=== PATIENT | female | born 1980 | race Caucasian/White ===

== ENCOUNTER 2016-03-15 13:14 | Emergency (ER) | payer MEDICARE ==
[2016-03-15 14:22] LABS: Hematocrit 48 % (35-47); Mean Corpuscular HGB Conc 34 g/dl (31-36); Mean Corpuscular Hemoglobin 30 pg (27-31); Mean Corpuscular Volume 90 fL (80-97); Mean Platelet Volume 9 um3 (7.4-10.4); Red Blood Count 5.27 10^6/ul (4.0-5.4); Red Cell Distribution Width 13 % (10.5-15); White Blood Count 8.5 10^3/ul (3.5-10.8)
[2016-03-15 14:25] LABS: Urine Bilirubin Negative (Negative); Urine Glucose Negative (Negative); Urine Nitrite Negative (Negative)
[2016-03-15 14:39] LABS: ALT 15 U/L (7-52); AST 14 U/L (13-39); Albumin 4.4 g/dL (3.2-5.2); Alkaline Phosphatase 70 U/L (34-104); Anion Gap 5 mmol/L (2-11); BUN/Creatinine Ratio 11.4 (8-20); Blood Urea Nitrogen 9 mg/dL (6-24); C Reactive Protein 1.08 mg/L (< 5.00); CO2 Carbon Dioxide 22 mmol/L (22-32); Calcium 9.5 mg/dL (8.6-10.3); Chloride 108 mmol/L (101-111); EGFR African American 105.3 (>60); EGFR Non-African American 81.9 (>60); Glucose 89 mg/dL (70-100); Lipase 16 U/L (11.0-82.0); Potassium 4.1 mmol/L (3.5-5.0); Sodium 135 mmol/L (133-145); Total Protein 7.4 g/dL (6.4-8.9)
[2016-03-15] MEDS ORDERED: Iohexol 300* (CONTRAST) 10 ML SDV IV ONE (15:37)
--- NOTE | 2016-03-15 17:20 | RAD ---
CLINICAL HISTORY: Left upper quadrant pain COMPARISON: October 31, 2011 TECHNIQUE: Multiple contiguous axial CT scans were obtained of the abdomen and pelvis after the administration of intravenous contrast. Coronal and sagittal multiplanar reformations are submitted for review. Oral contrast was administered. Delayed images were obtained through the abdomen FINDINGS: LUNG BASES: The lung bases are clear. LIVER: The liver is diffusely low in attenuation compared to the spleen. There are no focal hepatic parenchymal masses. BILE DUCTS: There is no intrahepatic or extrahepatic biliary dilatation. GALLBLADDER: The gallbladder is normal, without pericholecystic inflammatory change. PANCREAS: The pancreas is normal, without mass or ductal dilatation. SPLEEN: Normal in size and appearance. UPPER GI TRACT: Evaluation of the gastrointestinal tract is limited by incomplete gastric distention. The upper GI tract is unremarkable. SMALL BOWEL AND MESENTERY: The small bowel is normal in contour, course, and caliber. There is no obstruction or dilatation. COLON: The colon is normal in contour, course, caliber. There is no pericolonic inflammatory change. ADRENALS: Normal bilaterally. KIDNEYS: The kidneys are normal in shape, size, contour, and axis. There is no hydronephrosis or nephrolithiasis. BLADDER: The bladder is smooth in contour. PELVIC ORGANS: The uterus and adnexa are grossly normal for technique. AORTA: The aorta is normal. IVC: Unremarkable LYMPH NODES: There is no lymphadenopathy by size criteria. ABDOMINAL WALL: There is no evidence for abdominal wall hernia. BONES AND SOFT TISSUES: The bones and soft tissues are unremarkable. OTHER: None IMPRESSION: FATTY LIVER. NO ACUTE CT PATHOLOGY OF THE VISUALIZED ABDOMEN OR PELVIS
[2016-03-15 18:37] VITALS: BP 156/78
--- NOTE | 2016-03-15 18:58 | ED ---
Gustavo Sabillon Billy, scribed for Vasiliy De Anda MD on 03/15/16 at 1459 . Complex/Multi-Sys Presentation - HPI Summary HPI Summary: Patient is 36 y/o female who presents to [facility] with left flank pain, left lower abdominal pain, and dyspnea for 4 days. Dyspnea is unchanged with recumbent position. She describes N/V/D and abdominal pain. Three weeks ago, she saw her PCP for these symptoms, and she states that a left ovarian cyst was visualized on ultrasound. Last week, she followed up with [employer], who was unable to visualize the cyst on ultrasound. However, she states that she was given a diagnosis of endometriosis at that time. She reports pain worsened 4 days ago, and has been constant since. She also reports her abd feels distended and uncomfortable. Patient reports a history of psychiatric illnesses and is concerned that her symptoms are "all in her head." - History Of Current Complaint Chief Complaint: EDGeneral Time Seen by Provider: 03/15/16 13:47 Hx Obtained From: Patient Onset/Duration: Gradual Onset, Lasting Weeks, Still Present, Worse Since - 4 days Timing: Constant Severity Currently: Moderate Severity Initially: Moderate Location: Pain At: - LLQ, left flank Aggravating Factor(s): Nothing. Alleviating Factor(s): Nothing. Associated Signs And Symptoms: Positive: SOB, Nausea, Vomiting, Diarrhea, Abdominal Pain, Other - Flank pain - Allergies/Home Medications Allergies/Adverse Reactions: Allergies Allergy/AdvReac Type Severity Reaction Status Date / Time Hydrocodone Allergy Unknown Verified 03/22/15 00:08 Reaction Details SSRIS Allergy Unknown Uncoded 03/22/15 00:08 Reaction Details PMH/Surg Hx/FS Hx/Imm Hx Endocrine/Hematology History: Denies: Hx Diabetes, Hx Systemic Lupus Erythematosus, Hx Thyroid Disease Cardiovascular History: Denies: Hx Hypertension Respiratory History: Denies: Hx Asthma, Hx Chronic Obstructive Pulmonary Disease (COPD) GI History: Denies: Hx Ulcer Musculoskeletal History: Denies: Hx Rheumatoid Arthritis Psychiatric History: Reports: Hx Anxiety, Hx Eating Disorder, Hx Depression, Hx Panic Disorder, Hx Inpatient Treatment, Hx Community Mental Health Tx, Hx Bipolar Disorder, Hx Substance Abuse, Other Psychiatric Issues/Disorders Denies: Hx Attention Deficit Hyperactivity Disorder, Hx Post Traumatic Stress Disorder, Hx Schizophrenia, Hx Suicide Attempt, Hx of Violent Episodes Against Others - Cancer History Hx Chemotherapy: No Hx Radiation Therapy: No Hx Palliative Cancer Treatment: No - Surgical History Surgery Procedure, Year, and Place: 2000 - RIGHT Lymph nodes removed to biopsy thought she had cancer - she didn't. 2010- C section Infectious Disease History: No Infectious Disease History: Denies: Hx Clostridium Difficile, Hx Hepatitis, Hx Human Immunodeficiency Virus (HIV), Hx of Known/Suspected MRSA, Hx Shingles, Hx Tuberculosis, Hx Known/ Suspected VRE, Hx Known/Suspected VRSA, History Other Infectious Disease, Traveled Outside the [place] in Last 30 Days - Family History Known Family History: Positive: Diabetes - Father , Other - CVA mother - Social History Alcohol Use: None Hx Substance Use: No Substance Use Type: Reports: None Hx Tobacco Use: Yes Smoking Status (MU): Heavy Every Day Tobacco Smoker Review of Systems Positive: Shortness Of Breath Positive: Abdominal Pain, Vomiting, Diarrhea, Nausea, Other - Distended. Positive: flank pain - Left All Other Systems Reviewed And Are Negative: Yes Physical Exam Triage Information Reviewed: Yes Vital Signs On Initial Exam: Initial Vitals Temp Pulse Resp BP Pulse Ox 98.2 F 87 18 139/81 100 03/15/16 13:15 03/15/16 13:15 03/15/16 13:15 03/15/16 13:15 03/15/16 13:15 Vital Signs Reviewed: Yes Appearance: Positive: Well-Appearing, No Pain Distress Skin: Positive: Warm, Skin Color Reflects Adequate Perfusion, Dry Head/Face: Positive: Normal Head/Face Inspection Eyes: Positive: Normal ENT: Positive: Normal ENT inspection Neck: Positive: Supple, Nontender Respiratory/Lung Sounds: Positive: Clear to Auscultation, Breath Sounds Present Cardiovascular: Positive: RRR Abdomen Description: Positive: Other: - No tenderness to palpation with stethoscope. Mild tenderness to upper quadrants with deep palpation. Musculoskeletal: Positive: Normal Neurological: Positive: Normal Diagnostics - Vital Signs Vital Signs Temp Pulse Resp BP Pulse Ox 03/15/16 13:15 98.2 F 87 18 139/81 100 - Laboratory Lab Results: Lab Results 03/15/16 03/15/16 03/15/16 Range/Units 14:10 14:10 14:10 WBC 8.5 (3.5-10.8) 10^3/ul RBC 5.27 (4.0-5.4) 10^6/ul Hgb 16.0 (12.0-16.0) g/dl Hct 48 H (35-47) % MCV 90 (80-97) fL MCH 30 (27-31) pg MCHC 34 (31-36) g/dl RDW 13 (10.5-15) % Plt Count 270 (150-450) 10^3/ul MPV 9 (7.4-10.4) um3 Neut % (Auto) 44.6 (38-83) % Lymph % (Auto) 46.8 (25-47) % [place] % (Auto) 6.3 (1-9) % Eos % (Auto) 1.8 (0-6) % Baso % (Auto) 0.5 (0-2) % Absolute Neuts (auto) 3.8 (1.5-7.7) 10^3/ul Absolute Lymphs (auto) 4.0 (1.0-4.8) 10^3/ul Absolute Monos (auto) 0.5 (0-0.8) 10^3/ul Absolute Eos (auto) 0.2 (0-0.6) 10^3/ul Absolute Basos (auto) 0 (0-0.2) 10^3/ul Absolute Nucleated RBC 0 10^3/ul Nucleated RBC % 0 Sodium 135 (133-145) mmol/L Potassium 4.1 (3.5-5.0) mmol/L Chloride 108 (101-111) mmol/L Carbon Dioxide 22 (22-32) mmol/L Anion Gap 5 (2-11) mmol/L BUN 9 (6-24) mg/dL Creatinine 0.79 (0.51-0.95) mg/dL Est GFR ( Amer) 105.3 (>60) Est GFR (Non-Af Amer) 81.9 (>60) BUN/Creatinine Ratio 11.4 (8-20) Glucose 89 (70-100) mg/dL Lactic Acid (0.5-2.0) mmol/L Calcium 9.5 (8.6-10.3) mg/dL Total Bilirubin 0.40 (0.2-1.0) mg/dL AST 14 (13-39) U/L ALT 15 (7-52) U/L Alkaline Phosphatase 70 (34-104) U/L Troponin I 0.00 (<0.04) ng/mL C-Reactive Protein 1.08 (< 5.00) mg/L Total Protein 7.4 (6.4-8.9) g/dL Albumin 4.4 (3.2-5.2) g/dL Globulin 3.0 (2-4) g/dL Albumin/Globulin Ratio 1.5 (1-3) Lipase 16 (11.0-82.0) U/L Beta HCG, Quant < 0.60 mIU/mL Urine Color Yellow Urine Appearance Cloudy Urine pH 6.0 (5-9) Ur Specific [place] 1.019 (1.010-1.030) Urine Protein Negative (Negative) Urine Ketones Trace H (Negative) Urine Blood Negative (Negative) Urine Nitrate Negative (Negative) Urine Bilirubin Negative (Negative) Urine Urobilinogen Negative (Negative) Ur Leukocyte Esterase Negative (Negative) Urine Glucose Negative (Negative) 03/15/16 Range/Units 14:10 WBC (3.5-10.8) 10^3/ul RBC (4.0-5.4) 10^6/ul Hgb (12.0-16.0) g/dl Hct (35-47) % MCV (80-97) fL MCH (27-31) pg MCHC (31-36) g/dl RDW (10.5-15) % Plt Count (150-450) 10^3/ul MPV (7.4-10.4) um3 Neut % (Auto) (38-83) % Lymph % (Auto) (25-47) % [place] % (Auto) (1-9) % Eos % (Auto) (0-6) % Baso % (Auto) (0-2) % Absolute Neuts (auto) (1.5-7.7) 10^3/ul Absolute Lymphs (auto) (1.0-4.8) 10^3/ul Absolute Monos (auto) (0-0.8) 10^3/ul Absolute Eos (auto) (0-0.6) 10^3/ul Absolute Basos (auto) (0-0.2) 10^3/ul Absolute Nucleated RBC 10^3/ul Nucleated RBC % Sodium (133-145) mmol/L Potassium (3.5-5.0) mmol/L Chloride (101-111) mmol/L Carbon Dioxide (22-32) mmol/L Anion Gap (2-11) mmol/L BUN (6-24) mg/dL Creatinine (0.51-0.95) mg/dL Est GFR ( Amer) (>60) Est GFR (Non-Af Amer) (>60) BUN/Creatinine Ratio (8-20) Glucose (70-100) mg/dL Lactic Acid 0.6 (0.5-2.0) mmol/L Calcium (8.6-10.3) mg/dL Total Bilirubin (0.2-1.0) mg/dL AST (13-39) U/L ALT (7-52) U/L Alkaline Phosphatase (34-104) U/L Troponin I (<0.04) ng/mL C-Reactive Protein (< 5.00) mg/L Total Protein (6.4-8.9) g/dL Albumin (3.2-5.2) g/dL Globulin (2-4) g/dL Albumin/Globulin Ratio (1-3) Lipase (11.0-82.0) U/L Beta HCG, Quant mIU/mL Urine Color Urine Appearance Urine pH (5-9) Ur Specific Bailey (1.010-1.030) Urine Protein (Negative) Urine Ketones (Negative) Urine Blood (Negative) Urine Nitrate (Negative) Urine Bilirubin (Negative) Urine Urobilinogen (Negative) Ur Leukocyte Esterase (Negative) Urine Glucose (Negative) Result Diagrams: 03/15/16 14:10 03/15/16 14:10 Lab Statement: Any lab studies that have been ordered have been reviewed, and results considered in the medical decision making process. - CT abd/pel CT Interpretation: No Acute Changes CT Interpretation Completed By: Radiologist Complex Multi-Symp Course/Dx Course Of Treatment: Ms. Orellana presented C/O abdominal pain which she had a great deal of trouble characterizing. Her W/U here was normal and she has an appointment with her PMD in the morning so I will let her go home to F/U. - Diagnoses Provider Diagnoses: Abdominal pain Discharge - Discharge Plan Condition: Stable Disposition: HOME Patient Education Materials: Abdominal Pain (ED) Referrals: Becky Poe MD [Primary Care Provider] - 1 Day Additional Instructions: FOLLOW UP WITH DR. POE SCHEDULED. The documentation as recorded by the briceibGutsavo mars Billy accurately reflects the service I personally performed and the decisions made by me, Vasiliy De Anda MD.
== END 2016-03-15 18:36 | disposition home or self-care (01) ==
LOC: ED 13:14
DX: R10.32 Left lower quadrant pain (principal); Z72.0 Tobacco use; Z88.5 Allergy status to narcotic agent
CPT/HCPCS: 36415; 74177; 80053; 81003; 83605; 83690; 84484; 84702; 85025; 86140; 99283; Q9967

== ENCOUNTER → 2016-06-09 05:30 | Emergency (ER) | payer MEDICARE ==
[~2016-06-09 05:30] MED LIST: Iohexol 300* (CONTRAST) 10 ML SDV IV ONE; Ketorolac INJ* 30 MG/ML 1 ML VIAL IV PUSH ONE; Morphine INJ* 4 MG/ML 1 ML SYRINGE IV ONE; NS 0.9% 1000 ML* 2,000 ML IV ONE; Ondansetron INJ* 2 MG/ML VIAL IV ONE; oxyCODONE/Acetamin 5/325 MG* TAB PO ONE
[2016-06-09 06:32] LABS: Hematocrit 42 % (35-47); Hemoglobin 13.7 g/dl (12.0-16.0); Mean Corpuscular HGB Conc 33 g/dl (31-36); Mean Corpuscular Hemoglobin 30 pg (27-31); Mean Corpuscular Volume 92 fL (80-97); Mean Platelet Volume 9 um3 (7.4-10.4); Red Blood Count 4.53 10^6/ul (4.0-5.4); Red Cell Distribution Width 13 % (10.5-15); White Blood Count 10.4 10^3/ul (3.5-10.8)
[2016-06-09 06:52] LABS: ALT 11 U/L (7-52); AST 11 U/L (13-39); Albumin 3.8 g/dL (3.2-5.2); Alkaline Phosphatase 63 U/L (34-104); Anion Gap 7 mmol/L (2-11); BUN/Creatinine Ratio 9.3 (8-20); Blood Urea Nitrogen 8 mg/dL (6-24); CO2 Carbon Dioxide 21 mmol/L (22-32); Calcium 8.8 mg/dL (8.6-10.3); Chloride 109 mmol/L (101-111); EGFR African American 95.5 (>60); EGFR Non-African American 74.2 (>60); Globulin 2.6 g/dL (2-4); Glucose 103 mg/dL (70-100); Lipase 35 U/L (11.0-82.0); Potassium 3.7 mmol/L (3.5-5.0); Sodium 137 mmol/L (133-145); Total Protein 6.4 g/dL (6.4-8.9); Troponin I 0.01 ng/mL (<0.04)
[2016-06-09 09:19] VITALS: BP 113/72
--- NOTE | 2016-06-09 09:47 | RAD ---
Indication: Abdominal pain mid and lower left quadrant. Contrast: Administered 91.7 ml of OMNIPAQUE 300 mgi/ml CT of the abdomen and pelvis was performed after oral and IV contrast administration. Coronal and sagittal reconstructed images were obtained. The lung bases demonstrate no pleural fluid, nodules or masses. Heart is of normal size without evidence of pericardial effusion. The liver is normal in size. No focal lesions or intrahepatic ductal dilatation is noted. The gallbladder demonstrates no calcified gallstones. No pericholecystic fluid or wall thickening is identified. The pancreas demonstrates no pancreatic duct dilatation. The spleen is normal in size. No adrenal masses are noted. The kidneys demonstrate symmetric nephrograms. No retroperitoneal lymphadenopathy is noted. Dilated loops of bowel are noted. The colon is filled with stool. CT of the pelvis demonstrates appendix to be normal. No dilated loops of bowel are noted. The uterus and ovaries are unremarkable. No hernias are noted. There is some narrowing of the sigmoid colon with some mild wall thickening. Some mild infiltration of fat is noted. Some minimal diverticulitis of the sigmoid colon should BE considered. No abscess is noted. IMPRESSION: NORMAL APPENDIX. LIKELY DIVERTICULITIS OF THE SIGMOID COLON WITHOUT EVIDENCE OF PERIDIVERTICULAR ABSCESS.
--- NOTE | 2016-06-09 14:05 | ED ---
Humble Sabillon Auryana, scribed for Baljit Kunz MD on 06/09/16 at 0749 . Progress - Progress Note Progress Note: Sign out by Dr. Tejada to Dr. Kunz at 07:00 06/09/16 Pending ABD/PEL CT at time of sign out. 36 year old female presents with moderate left sided abdominal pain starting 2 days ago. She also has decreased appetite with early satiation, nausea and dry heaves-every morning. She denies any pain medication recently-states out of Percocet Rx for the last few days. Will give medication to treat pain. Awaiting CT ABD/PEL. - Results/Orders Results/Orders: ABD/PEL CT IMPRESSION: NORMAL APPENDIX. LIKELY DIVERTICULITIS OF THE SIGMOID COLON WITHOUT EVIDENCE OF PERIDIVERTICULAR ABSCESS. - EKG/XRAY/CT EKG: NSR Comments: 07:06 NSR, normal axis Re-Evaluation - Re-Evaluation First Eval Re-Evaluation Time: 10:20 - DICUSSED LABS. IMAGING, AND PLAN OF ACTION Change: Improved Course/Dx - Course Course Of Treatment: pt will be discharged to home on Flagyl 500mg po qid x 10 days, cipro 500mg po bid x 10days and percocet one po q 6hours - Diagnoses Provider Diagnoses: Diverticulitis The documentation as recorded by the Humble allison Auryana accurately reflects the service I personally performed and the decisions made by , Baljit Kunz MD.
--- NOTE | 2016-06-09 19:26 | ED ---
George Sabillon Aidan, scribed for TerrellJnoo on 06/09/16 at 0637 . Abdominal Pain/Female - HPI Summary HPI Summary: 36 y/o female presents to the ED with a complaint of acute, constant, moderate- to-severe (8/10) abdominal pain that has persisted intermittently for over a week and just recently became constant. 2 days ago, she had a nuclear test done. Since the test, she has reported increased nausea, vomiting, diarrhea, extreme lack of appetite, abdominal pain, back pain, and bloating. She has an appointment with a GI specialist this coming Sunday. - History of Current Complaint Chief Complaint: EDAbdPain Stated Complaint: N,V,D/LOSS OF APPITITE,LOWER BACK PAIN/FEVER Time Seen by Provider: 06/09/16 06:02 Hx Obtained From: Patient Hx Last Menstrual Period: 05/14/12 ?: No Onset/Duration: Gradual Onset, Lasting Days, Still Present Timing: Constant Severity Initially: Moderate Severity Currently: Moderate Pain Intensity: 8 Pain Scale Used: 0-10 Numeric Location: Diffuse Radiates: No Character: Sharp Aggravating Factor(s): Other: - unknown Alleviating Factor(s): Other: - unknown Associated Signs and Symptoms: Positive: Back Pain, Nausea, Vomiting, Diarrhea, Other: - bloating, lack of appetite Allergies/Adverse Reactions: Allergies Allergy/AdvReac Type Severity Reaction Status Date / Time Hydrocodone Allergy Unknown Verified 06/09/16 05:54 Reaction Details SSRIS Allergy Unknown Uncoded 06/09/16 05:54 Reaction Details PMH/Surg Hx/FS Hx/Imm Hx Endocrine/Hematology History: Denies: Hx Diabetes, Hx Systemic Lupus Erythematosus, Hx Thyroid Disease Cardiovascular History: Denies: Hx Hypertension Respiratory History: Denies: Hx Asthma, Hx Chronic Obstructive Pulmonary Disease (COPD) GI History: Denies: Hx Ulcer Musculoskeletal History: Denies: Hx Rheumatoid Arthritis Psychiatric History: Reports: Hx Anxiety, Hx Eating Disorder, Hx Depression, Hx Panic Disorder, Hx Inpatient Treatment, Hx Community Mental Health Tx, Hx Bipolar Disorder, Hx Substance Abuse, Other Psychiatric Issues/Disorders Denies: Hx Attention Deficit Hyperactivity Disorder, Hx Post Traumatic Stress Disorder, Hx Schizophrenia, Hx Suicide Attempt, Hx of Violent Episodes Against Others - Cancer History Hx Chemotherapy: No Hx Radiation Therapy: No Hx Palliative Cancer Treatment: No - Surgical History Surgery Procedure, Year, and Place: 2000 - RIGHT Lymph nodes removed to biopsy thought she had cancer - she didn't. 2011- C section Infectious Disease History: No Infectious Disease History: Denies: Hx Clostridium Difficile, Hx Hepatitis, Hx Human Immunodeficiency Virus (HIV), Hx of Known/Suspected MRSA, Hx Shingles, Hx Tuberculosis, Hx Known/ Suspected VRE, Hx Known/Suspected VRSA, History Other Infectious Disease, Traveled Outside the [place] in Last 30 Days - Family History Known Family History: Positive: Diabetes - Father , Other - CVA mother - Social History Occupation: Disabled Lives: Alone Alcohol Use: Rare Hx Substance Use: No Substance Use Type: Reports: Marijuana Hx Tobacco Use: Yes Smoking Status (MU): Heavy Every Day Tobacco Smoker Type: Cigarettes Review of Systems Constitutional: Negative Eyes: Negative ENT: Negative Cardiovascular: Negative Respiratory: Negative Positive: Abdominal Pain, Vomiting, Diarrhea, Nausea, Other - lack of appetite Genitourinary: Negative Musculoskeletal: Negative Skin: Negative Neurological: Negative Psychological: Normal All Other Systems Reviewed And Are Negative: Yes Physical Exam Triage Information Reviewed: Yes Vital Signs On Initial Exam: Initial Vitals Temp Pulse Resp BP Pulse Ox 97.9 F 75 16 143/97 97 06/09/16 05:40 06/09/16 05:40 06/09/16 05:40 06/09/16 05:40 06/09/16 05:40 Vital Signs Reviewed: Yes Appearance: Positive: Well-Appearing, No Pain Distress Skin: Positive: Warm, Skin Color Reflects Adequate Perfusion, Dry Head/Face: Positive: Normal Head/Face Inspection Eyes: Positive: Normal ENT: Positive: Normal ENT inspection Neck: Positive: Supple, Nontender Respiratory/Lung Sounds: Positive: Clear to Auscultation, Breath Sounds Present Cardiovascular: Positive: RRR Abdomen Description: Positive: Soft, Other: - diffuse abdominal tenderness Bowel Sounds: Positive: Present Musculoskeletal: Positive: Normal Neurological: Positive: Normal Psychiatric: Positive: Affect/Mood Appropriate Diagnostics - Vital Signs Vital Signs Temp Pulse Resp BP Pulse Ox 06/09/16 05:55 76 96 06/09/16 05:40 97.9 F 75 16 143/97 97 - Laboratory Lab Results: Lab Results 06/09/16 06/09/16 06/09/16 Range/Units 06:05 06:05 06:05 WBC 10.4 (3.5-10.8) 10^3/ul RBC 4.53 (4.0-5.4) 10^6/ul Hgb 13.7 (12.0-16.0) g/dl Hct 42 (35-47) % MCV 92 (80-97) fL MCH 30 (27-31) pg MCHC 33 (31-36) g/dl RDW 13 (10.5-15) % Plt Count 254 (150-450) 10^3/ul MPV 9 (7.4-10.4) um3 Neut % (Auto) 59.2 (38-83) % Lymph % (Auto) 29.7 (25-47) % [place] % (Auto) 5.4 (1-9) % Eos % (Auto) 5.0 (0-6) % Baso % (Auto) 0.7 (0-2) % Absolute Neuts (auto) 6.1 (1.5-7.7) 10^3/ul Absolute Lymphs (auto) 3.1 (1.0-4.8) 10^3/ul Absolute Monos (auto) 0.6 (0-0.8) 10^3/ul Absolute Eos (auto) 0.5 (0-0.6) 10^3/ul Absolute Basos (auto) 0.1 (0-0.2) 10^3/ul Absolute Nucleated RBC 0 10^3/ul Nucleated RBC % 0 INR (Anticoag Therapy) (0.89-1.11) APTT (26.0-36.3) seconds Sodium 137 (133-145) mmol/L Potassium 3.7 (3.5-5.0) mmol/L Chloride 109 (101-111) mmol/L Carbon Dioxide 21 L (22-32) mmol/L Anion Gap 7 (2-11) mmol/L BUN 8 (6-24) mg/dL Creatinine 0.86 (0.51-0.95) mg/dL Est GFR ( Amer) 95.5 (>60) Est GFR (Non-Af Amer) 74.2 (>60) BUN/Creatinine Ratio 9.3 (8-20) Glucose 103 H (70-100) mg/dL Lactic Acid 0.6 (0.5-2.0) mmol/L Calcium 8.8 (8.6-10.3) mg/dL Total Bilirubin 0.40 (0.2-1.0) mg/dL AST 11 L (13-39) U/L ALT 11 (7-52) U/L Alkaline Phosphatase 63 (34-104) U/L Troponin I 0.01 (<0.04) ng/mL Total Protein 6.4 (6.4-8.9) g/dL Albumin 3.8 (3.2-5.2) g/dL Globulin 2.6 (2-4) g/dL Albumin/Globulin Ratio 1.5 (1-3) Lipase 35 (11.0-82.0) U/L Beta HCG, Quant < 0.60 mIU/mL 06/09/16 Range/Units 06:05 WBC (3.5-10.8) 10^3/ul RBC (4.0-5.4) 10^6/ul Hgb (12.0-16.0) g/dl Hct (35-47) % MCV (80-97) fL MCH (27-31) pg MCHC (31-36) g/dl RDW (10.5-15) % Plt Count (150-450) 10^3/ul MPV (7.4-10.4) um3 Neut % (Auto) (38-83) % Lymph % (Auto) (25-47) % [place] % (Auto) (1-9) % Eos % (Auto) (0-6) % Baso % (Auto) (0-2) % Absolute Neuts (auto) (1.5-7.7) 10^3/ul Absolute Lymphs (auto) (1.0-4.8) 10^3/ul Absolute Monos (auto) (0-0.8) 10^3/ul Absolute Eos (auto) (0-0.6) 10^3/ul Absolute Basos (auto) (0-0.2) 10^3/ul Absolute Nucleated RBC 10^3/ul Nucleated RBC % INR (Anticoag Therapy) 0.84 L (0.89-1.11) APTT 31.1 (26.0-36.3) seconds Sodium (133-145) mmol/L Potassium (3.5-5.0) mmol/L Chloride (101-111) mmol/L Carbon Dioxide (22-32) mmol/L Anion Gap (2-11) mmol/L BUN (6-24) mg/dL Creatinine (0.51-0.95) mg/dL Est GFR ( Amer) (>60) Est GFR (Non-Af Amer) (>60) BUN/Creatinine Ratio (8-20) Glucose (70-100) mg/dL Lactic Acid (0.5-2.0) mmol/L Calcium (8.6-10.3) mg/dL Total Bilirubin (0.2-1.0) mg/dL AST (13-39) U/L ALT (7-52) U/L Alkaline Phosphatase (34-104) U/L Troponin I (<0.04) ng/mL Total Protein (6.4-8.9) g/dL Albumin (3.2-5.2) g/dL Globulin (2-4) g/dL Albumin/Globulin Ratio (1-3) Lipase (11.0-82.0) U/L Beta HCG, Quant mIU/mL Result Diagrams: 06/09/16 06:05 06/09/16 06:05 Lab Statement: Any lab studies that have been ordered have been reviewed, and results considered in the medical decision making process. Abdominal Pain Fem Course/Dx - Course Course Of Treatment: This is a 36 y/o female presenting with diffuse abomdinal pain, nausea, vomiting, diarrhea, and severe lack of appetite. - Diagnoses Differential Diagnosis: Positive: Other Provider Diagnoses: Diverticulitis, Abdominal pain Discharge - Discharge Plan Condition: Guarded Disposition: OTHER Discharge Disposition Comment: signed out to Dr Kunz Prescriptions: Ciprofloxacin TAB* [Cipro 500 MG TAB*] 500 mg PO BID #20 tab Metronidazole [Flagyl 500 MG TAB] 500 mg PO QID #40 tab oxyCODONE/Acetamin 5/325 MG* [Percocet 5/325 TAB*] 1 tab PO Q6H PRN #20 tab MDD 4 PRN Reason: pain Patient Education Materials: Ciprofloxacin (By mouth), Metronidazole (By mouth) , Narcotic-Analgesic/Acetaminophen (By mouth), Diverticulitis (ED) Referrals: Becky Poe MD [Primary Care Provider] - 2 Days The documentation as recorded by the George allison Aidan accurately reflects the service I personally performed and the decisions made by , Jono Tejada.
== END ==
LOC: ED 05:30
DX: K57.92 Diverticulitis of intestine, part unspecified, without perforation or abscess without bleeding (principal); M54.9 Dorsalgia, unspecified; R11.2 Nausea with vomiting, unspecified; R19.7 Diarrhea, unspecified; R50.9 Fever, unspecified; F17.210 Nicotine dependence, cigarettes, uncomplicated; R10.9 Unspecified abdominal pain
CPT/HCPCS: 36415; 74177; 80053; 83605; 83690; 84484; 84702; 85025; 85610; 85730; 93005; 99283; J1885; J2405; Q9967

== ENCOUNTER 2016-06-30 21:46 | Emergency (ER) | payer MEDICARE ==
[2016-06-30 22:00] VITALS: BP 145/105
[2016-06-30 22:44] LABS: Hematocrit 42 % (35-47); Hemoglobin 14.1 g/dl (12.0-16.0); Mean Corpuscular HGB Conc 33 g/dl (31-36); Mean Corpuscular Hemoglobin 30 pg (27-31); Mean Corpuscular Volume 91 fL (80-97); Mean Platelet Volume 9 um3 (7.4-10.4); Red Blood Count 4.65 10^6/ul (4.0-5.4); Red Cell Distribution Width 13 % (10.5-15); White Blood Count 10.8 10^3/ul (3.5-10.8)
--- NOTE | 2016-06-30 22:45 | ED ---
Edward Sabillon SooYoung, scribed for Nolan Dorantes MD on 06/30/16 at 2225 . Psychiatric Complaint - HPI Summary HPI Summary: A 36 y/o F presents to ED for MHE. Pt states her took their children and will not tell her their location unless she receives a MHE. Pt states she has had several physical ailments since December that doctors have been unable to dx. Pert PMHx: bipolar disorder, anxiety, depression. - History Of Current Complaint Chief Complaint: EDMentalHealth Time Seen by Provider: 06/30/16 22:19 Hx Obtained From: Patient Hx Last Menstrual Period: 05/14/12 Onset/Duration: Still Present Timing: Constant Aggravating Factor(s): Recent Stress Related History: Positive For: Prior Psychiatric Issues - Allergies/Home Medications Allergies/Adverse Reactions: Allergies Allergy/AdvReac Type Severity Reaction Status Date / Time Hydrocodone Allergy Unknown Verified 06/09/16 05:54 Reaction Details SSRIS Allergy Unknown Uncoded 06/09/16 05:54 Reaction Details PMH/Surg Hx/FS Hx/Imm Hx Previously Healthy: No Endocrine/Hematology History: Denies: Hx Diabetes, Hx Systemic Lupus Erythematosus, Hx Thyroid Disease Cardiovascular History: Denies: Hx Hypertension Respiratory History: Denies: Hx Asthma, Hx Chronic Obstructive Pulmonary Disease (COPD) GI History: Denies: Hx Ulcer History: Denies: Hx Renal Disease Musculoskeletal History: Denies: Hx Rheumatoid Arthritis Psychiatric History: Reports: Hx Anxiety, Hx Eating Disorder, Hx Depression, Hx Panic Disorder, Hx Inpatient Treatment, Hx Community Mental Health Tx, Hx Bipolar Disorder, Hx Substance Abuse, Other Psychiatric Issues/Disorders Denies: Hx Attention Deficit Hyperactivity Disorder, Hx Post Traumatic Stress Disorder, Hx Schizophrenia, Hx Suicide Attempt, Hx of Violent Episodes Against Others - Cancer History Hx Chemotherapy: No Hx Radiation Therapy: No Hx Palliative Cancer Treatment: No - Surgical History Surgery Procedure, Year, and Place: 2000 - RIGHT Lymph nodes removed to biopsy thought she had cancer - she didn't. 2010- C section Infectious Disease History: Denies: Hx Clostridium Difficile, Hx Hepatitis, Hx Human Immunodeficiency Virus (HIV), Hx of Known/Suspected MRSA, Hx Shingles, Hx Tuberculosis, Hx Known/ Suspected VRE, Hx Known/Suspected VRSA, History Other Infectious Disease, Traveled Outside the [place] in Last 30 Days - Family History Known Family History: Positive: Diabetes - Father , Other - CVA mother - Social History Occupation: Disabled Lives: With Family Alcohol Use: Rare Hx Substance Use: Yes Substance Use Type: Reports: Marijuana Hx Tobacco Use: Yes Smoking Status (MU): Heavy Every Day Tobacco Smoker Type: Cigarettes Review of Systems Negative: Fever, Skin Diaphoresis All Other Systems Reviewed And Are Negative: Yes Physical Exam Triage Information Reviewed: Yes Vital Signs On Initial Exam: Initial Vitals Temp Pulse Resp BP Pulse Ox 98.5 F 91 20 145/105 100 06/30/16 21:52 06/30/16 21:52 06/30/16 21:52 06/30/16 21:52 06/30/16 21:52 Vital Signs Reviewed: Yes Appearance: Positive: Well-Appearing, No Pain Distress - anxious Skin: Positive: Warm Head/Face: Positive: Normal Head/Face Inspection Eyes: Positive: SHERRI ENT: Positive: Hearing grossly normal Neck: Positive: Supple Respiratory/Lung Sounds: Positive: Breath Sounds Present Cardiovascular: Positive: RRR Abdomen Description: Positive: Nontender, Soft Bowel Sounds: Positive: Present Musculoskeletal: Positive: Strength/ROM Intact Neurological: Positive: Normal Gait Psychiatric: Positive: Anxious Diagnostics - Vital Signs Vital Signs Temp Pulse Resp BP Pulse Ox 06/30/16 21:52 98.5 F 91 20 145/105 100 - Laboratory Result Diagrams: 06/30/16 22:35 06/30/16 22:35 Lab Statement: Any lab studies that have been ordered have been reviewed, and results considered in the medical decision making process. Course/Dx - Course Course Of Treatment: Pt is a 36 y/o F presenting for MHE. Pt states her took their children and will not tell her their location unless she receives a MHE. Pert PMHx: bipolar disorder, anxiety, depression. Pt states she will do whatever is best for her children. Pt given IBP, Zofran, nicotine mouth piece, patch and inhaler in ED. Lab results are nml. UA shows trace ketones, specific gravity is 1.008. Medically cleared for MHE at 2359. - Differential Dx/Clinical Impression Provider Diagnosis: Anxiety Discharge - Discharge Plan Condition: Stable Disposition: HOME Patient Education Materials: Bipolar Disorder (ED), Anxiety (ED) Referrals: [facility] [Other] (Please see your therapist, Zahira Grayson, at [facility], at your earliest convenience.) Becky Poe MD [Primary Care Provider] - The documentation as recorded by the Edward allison SooYoung accurately reflects the service I personally performed and the decisions made by me, Nolan Dorantes MD.
[2016-06-30 22:57] LABS: ALT 19 U/L (7-52); AST 23 U/L (13-39); Albumin 4.3 g/dL (3.2-5.2); Alkaline Phosphatase 61 U/L (34-104); Anion Gap 5 mmol/L (2-11); BUN/Creatinine Ratio 8.8 (8-20); Blood Urea Nitrogen 8 mg/dL (6-24); CO2 Carbon Dioxide 25 mmol/L (22-32); Calcium 9.6 mg/dL (8.6-10.3); Chloride 107 mmol/L (101-111); EGFR African American 89.5 (>60); EGFR Non-African American 69.6 (>60); Globulin 2.7 g/dL (2-4); Glucose 101 mg/dL (70-100); Potassium 3.6 mmol/L (3.5-5.0); Sodium 137 mmol/L (133-145)
[2016-06-30] MEDS ORDERED: Nicotine Inhaler* 10 MG AMP INH ONE (23:07)
[2016-06-30] MEDS ORDERED: Nicotine PATCH 7 MG/24 HR* PATCH TRANSDERM ONE (23:07)
[2016-06-30] MEDS ORDERED: Mouth Piece, Nicotine* 1 EACH CARTRIDGE INH PRN (23:07)
[2016-06-30] MEDS ORDERED: Mouth Piece, Nicotine* 1 EACH CARTRIDGE ONE (23:11)
[2016-06-30 23:44] LABS: Urine Bilirubin Negative (Negative); Urine Glucose Negative (Negative); Urine Nitrite Negative (Negative)
[2016-06-30 23:49] LABS: Acetaminophen < 15 mcg/mL; Alcohol < 10 mg/dL (<10); Salicylate < 2.50 mg/dL (<30)
[2016-06-30 23:59] LABS: TSH (Thyroid Stimulating Horm) 0.64 mcIU/mL (0.34-5.60)
[2016-07-01] MEDS ORDERED: Ibuprofen TAB* 600 MG PO ONE
[2016-07-01 00:01] LABS: Benzodiazepine Urine Screen None Detected (None Detect)
[2016-07-01] MEDS ORDERED: Ondansetron ODT TAB* 4 MG SL ONE (02:37)
[2016-07-01] MEDS ORDERED: Nicotine Patch Removal NOTE FOLLOW UP SCH (21:00)
== END 2016-07-01 03:27 | disposition home or self-care (01) ==
LOC: ED 21:46
DX: F41.9 Anxiety disorder, unspecified (principal); F17.210 Nicotine dependence, cigarettes, uncomplicated; F31.9 Bipolar disorder, unspecified
CPT/HCPCS: 36415; 80053; 80307; 80320; 80329; 81003; 84443; 84702; 85025; 99284; A9270-GY; G0480

== ENCOUNTER 2016-07-01 17:59 | Inpatient (IN) | payer MEDICARE ==
[2016-07-01] MEDS ORDERED: diPHENhydraMINE IV* 50 MG/ML 1 ml VIAL (BENADRYL) IM ONE (18:26)
[2016-07-01] MEDS ORDERED: Haloperidol INJ IV/IM* 5 MG/ML AMP IM ONE (18:27)
[2016-07-01] MEDS ORDERED: LORazepam INJ* 2 MG/ML 1 ML VIAL IV PUSH ONE (18:27)
[2016-07-01] MEDS ORDERED: LORazepam INJ* 2 MG/ML 1 ML VIAL ONE (18:29)
[2016-07-01] MEDS ORDERED: diPHENhydraMINE IV* 50 MG/ML 1 ml VIAL (BENADRYL) ONE (18:29)
[2016-07-01] MEDS ORDERED: Haloperidol INJ IV/IM* 5 MG/ML AMP ONE (18:29)
[2016-07-01 18:41] LABS: Urine Bacteria Absent (Absent); Urine Bilirubin Negative (Negative); Urine Glucose Negative (Negative); Urine Nitrite Negative (Negative)
[2016-07-01 18:49] LABS: Benzodiazepine Urine Screen None Detected (None Detect)
[2016-07-01 19:07] LABS: Hematocrit 40 % (35-47); Hemoglobin 13.4 g/dl (12.0-16.0); Mean Corpuscular HGB Conc 34 g/dl (31-36); Mean Corpuscular Hemoglobin 31 pg (27-31); Mean Corpuscular Volume 91 fL (80-97); Mean Platelet Volume 9 um3 (7.4-10.4); Red Blood Count 4.38 10^6/ul (4.0-5.4); Red Cell Distribution Width 13 % (10.5-15); White Blood Count 9.2 10^3/ul (3.5-10.8)
[2016-07-01 19:23] LABS: ALT 18 U/L (7-52); AST 24 U/L (13-39); Alkaline Phosphatase 57 U/L (34-104); Anion Gap 9 mmol/L (2-11); BUN/Creatinine Ratio 9.8 (8-20); Blood Urea Nitrogen 8 mg/dL (6-24); CO2 Carbon Dioxide 20 mmol/L (22-32); Chloride 111 mmol/L (101-111); EGFR African American 100.9 (>60); EGFR Non-African American 78.4 (>60); Globulin 2.4 g/dL (2-4); Glucose 97 mg/dL (70-100); Potassium 3.2 mmol/L (3.5-5.0); Sodium 140 mmol/L (133-145); Total Protein 6.4 g/dL (6.4-8.9)
[2016-07-01 19:57] LABS: Acetaminophen < 15 mcg/mL; Alcohol < 10 mg/dL (<10); Salicylate < 2.50 mg/dL (<30)
[2016-07-01 20:08] LABS: TSH (Thyroid Stimulating Horm) 0.37 mcIU/mL (0.34-5.60)
--- NOTE | 2016-07-01 22:45 | ED ---
Jacinda Sabillon Rebecca, scribed for Aleta Pozo MD on 07/01/16 at 1856 . Psychiatric Complaint - HPI Summary HPI Summary: Pt is a 36 y/o F BIBA who presents to ED for MHE. Since arriving in the ED, pt has been pacing the room and repeatedly angrily yelling about how her took her kids. Pt was D/C from [facility] ED this morning. PMHx anxiety, depression, bipolar disorder, panic disorder, inpatient MH treatment and substance abuse. Level 5 caveat due to uncooperative disposition. - History Of Current Complaint Chief Complaint: EDMentalHealth Time Seen by Provider: 07/01/16 18:25 Hx From Patient Unobtainable Due To: Other - Uncooperative Hx Last Menstrual Period: 05/14/12 Character: Anxious - Pacing the room - Allergies/Home Medications Allergies/Adverse Reactions: Allergies Allergy/AdvReac Type Severity Reaction Status Date / Time Hydrocodone Allergy Unknown Verified 06/09/16 05:54 Reaction Details SSRIS Allergy Unknown Uncoded 06/09/16 05:54 Reaction Details PMH/Surg Hx/FS Hx/Imm Hx Endocrine/Hematology History: Denies: Hx Diabetes, Hx Systemic Lupus Erythematosus, Hx Thyroid Disease Cardiovascular History: Denies: Hx Hypertension Respiratory History: Denies: Hx Asthma, Hx Chronic Obstructive Pulmonary Disease (COPD) GI History: Denies: Hx Ulcer History: Denies: Hx Renal Disease Musculoskeletal History: Denies: Hx Rheumatoid Arthritis Psychiatric History: Reports: Hx Anxiety, Hx Eating Disorder, Hx Depression, Hx Panic Disorder, Hx Inpatient Treatment, Hx Community Mental Health Tx, Hx Bipolar Disorder, Hx Substance Abuse, Other Psychiatric Issues/Disorders Denies: Hx Attention Deficit Hyperactivity Disorder, Hx Post Traumatic Stress Disorder, Hx Schizophrenia, Hx Suicide Attempt, Hx of Violent Episodes Against Others - Cancer History Hx Chemotherapy: No Hx Radiation Therapy: No Hx Palliative Cancer Treatment: No - Surgical History Surgery Procedure, Year, and Place: 2000 - RIGHT Lymph nodes removed to biopsy thought she had cancer - she didn't. 2010- C section Infectious Disease History: No Infectious Disease History: Denies: Hx Clostridium Difficile, Hx Hepatitis, Hx Human Immunodeficiency Virus (HIV), Hx of Known/Suspected MRSA, Hx Shingles, Hx Tuberculosis, Hx Known/ Suspected VRE, Hx Known/Suspected VRSA, History Other Infectious Disease, Traveled Outside the [place] in Last 30 Days - Family History Known Family History: Positive: Diabetes - Father , Other - CVA mother - Social History Alcohol Use: Rare Hx Substance Use: Yes Substance Use Type: Reports: Marijuana Hx Tobacco Use: Yes Smoking Status (MU): Heavy Every Day Tobacco Smoker Type: Cigarettes Review of Systems - ROS Summary Review of Systems Summary: Level 5 caveat due to uncooperative disposition. Positive: Other - Talking without stop and pacing the room All Other Systems Reviewed And Are Negative: No Physical Exam - Summary Physical Exam Summary: General: No pain distress, pressured speech, a little unkempt Skin: Warm, Skin Color Reflects Adequate Perfusion, Dry Eyes: EOMI, SHERRI ENT: Pharynx normal, TMs normal Neck: Supple, nontender Respiratory: CTA, breath sounds present, no rhonchi, no wheezes, no rales Cardiovascular: RRR, no murmur, no rub, no gallop Musculoskeletal: HOSEA, No edema Neuro: Sensory/motor intact, A&Ox3, CN intact 2-12 Psych: Affect/mood appropriate Triage Information Reviewed: Yes Vital Signs On Initial Exam: Initial Vitals Temp Pulse Resp BP Pulse Ox 98.2 F 88 20 154/100 100 07/01/16 18:02 07/01/16 18:02 07/01/16 18:02 07/01/16 18:02 07/01/16 18:02 Vital Signs Reviewed: Yes - Antonio Coma Scale Coma Scale Total: 15 Diagnostics - Vital Signs Vital Signs Temp Pulse Resp BP Pulse Ox 07/01/16 18:37 22 07/01/16 18:02 98.2 F 88 20 154/100 100 - Laboratory Lab Results: Lab Results 07/01/16 07/01/16 Range/Units 18:27 18:27 Urine Color Rosa Urine Appearance Cloudy Urine pH 6.0 (5-9) Ur Specific [place] 1.021 (1.010-1.030) Urine Protein 1+(30 mg/dl) H (Negative) Urine Ketones 1+ H (Negative) Urine Blood Negative (Negative) Urine Nitrate Negative (Negative) Urine Bilirubin Negative (Negative) Urine Urobilinogen Positive H (Negative) Ur Leukocyte Esterase Trace H (Negative) Urine WBC (Auto) 1+(6-10/hpf) H (Absent) Urine RBC (Auto) 3+(>10/hpf) H (Absent) Ur Squamous Epith Cells Present H (Absent) Calcium Oxalate Crystal Present H (Absent) Urine Bacteria Absent (Absent) Urine Glucose Negative (Negative) Urine Opiates Screen None detected (None Detect) Ur Barbiturates Screen None detected (None Detect) Ur Phencyclidine Scrn None detected (None Detect) Ur Amphetamines Screen None detected (None Detect) U Benzodiazepines Scrn None detected (None Detect) Urine Cocaine Screen None detected (None Detect) U Cannabinoids Screen Presumptive positive H (None Detect) Result Diagrams: 07/01/16 18:04 07/01/16 18:50 Lab Statement: Any lab studies that have been ordered have been reviewed, and results considered in the medical decision making process. Course/Dx - Course Course Of Treatment: pt now awake talking to mental health leather tanner and to be signed out to dr. tamayo - Differential Dx/Clinical Impression Provider Diagnosis: Agitation requiring sedation protocol Discharge - Discharge Plan Condition: Good Disposition: OTHER Discharge Disposition Comment: Pt will be signed out, pending dispo, awaiting MHE Referrals: Becky Poe MD [Primary Care Provider] - The documentation as recorded by the Jacinda allison Rebecca accurately reflects the service I personally performed and the decisions made by me, Aleta Pozo MD.
[2016-07-02] MEDS: clonazePAM TAB(*) 0.5 MG PO SCH ×2 (07:31→14:20)
[2016-07-02] MEDS: Ciprofloxacin TAB* 500 MG PO SCH (07:31)
[2016-07-02] MEDS: Vitamin THERAPEUTIC TAB PO SCH (07:32)
[2016-07-02] MEDS: Mouth Piece, Nicotine* 1 EACH CARTRIDGE INH SCH (07:42)
[2016-07-02] MEDS: Nicotine Inhaler* 10 MG AMP INH PRN (07:42)
[2016-07-02] MEDS ORDERED: OLANzapine TAB* 5 MG PO SCH ×2 (09:00→21:00)
[2016-07-02] MEDS: hydrOXYzine HCL TAB* 50 MG PO PRN (11:59)
[2016-07-02] MEDS ORDERED: Ibuprofen TAB* 400 MG ONE (18:29)
[2016-07-02] MEDS ORDERED: clonazePAM TAB(*) 0.5 MG PO ONE (19:00)
[2016-07-02] MEDS: OLANzapine TAB* 5 MG PO PRN (19:33)
--- NOTE | 2016-07-02 21:26 | HP ---
Amended report to enter cosignature on report. INITIAL PSYCHIATRIC ASSESSMENT: The supervising psychiatrist for this assessment is Dr. Ingram. DATE OF ADMISSION: 07/02/16 IDENTIFYING INFORMATION: The patient is a 36-year-old white female admitted to this facility on 07/02/16. Admitting status is 9.39. The patient was seen and examined. The chart was reviewed and the case was discussed with clinical staff available at the time of visit. CHIEF COMPLAINT/REASON FOR ADMISSION: The patient states "I have not slept in a few days, but my took my children. Wait, I will tell you what happened." It should be noted that at this point that the patient was quite distressed throughout the clinical interview and was also quite tangential and verbose making psychiatric assessment quite difficult. HISTORY OF PRESENT ILLNESS: Apparently, the patient was brought to [facility] via ambulance. According to emergency room documentation, on Sunday at approximately 1 p.m., her apparently took her daughter out of school. She was searching for them today. The patient informs me that she drove all over until she ran out of gas. She states that when she finally did talk to her , he stated that he was going to keep the children away from her until she allegedly went for a mental health evaluation. She did go for a mental health evaluation here at [facility] and was discharged earlier yesterday morning. Apparently, she was told after her evaluation that she should call the real estate instructor to find out where her children are and when she did, there was no answer at which point her phone . She said that CPS was also called because of her pulling the children out of school without reason. Then, she told me today that she feels that her has been "going crazy" ever since the of a relative a few weeks ago. She alleges that she had a piece of the persons skin preserved in the freezer because she stated "My gave me a piece of skin inside of a post- it note." PSYCHIATRIC SYMPTOMS: Flight of ideas. The patient self-admitted not sleeping for several days, tangential thought processes. PAST PSYCHIATRIC HISTORY: The patient has a history of multiple inpatient psychiatric admissions, the most recent being here in February 2013. The patient does report that she received caring services at the [facility] where she sees Wilma Grayson and Gagandeep is her therapist. She carries a diagnosis of bipolar disorder and borderline personality disorder, currently denying suicidal ideation. PAST MEDICAL HISTORY: Positive for ovarian cyst which she reports was found on her left cyst a few weeks ago. She is currently awaiting an appointment with her [employer]ATIONAL [employer]. PHYSICAL EXAMINATION GENERAL APPEARANCE: The patient is well developed, well nourished, alert, cooperative appears to be in no acute distress at the time of the exam. HEENT: Head is normocephalic, atraumatic. NECK: Appears normal on inspection. RESPIRATORY: No respiratory distress. CARDIAC: Rate is 102. Blood pressure 136/92. ABDOMEN: Symmetrical without distention or guarding. MUSCULOSKELETAL: The patient demonstrates full range of motion. NEUROLOGIC: The patient is alert and oriented to person, place, and time. SKIN: Intact. Warm and dry. MENTAL STATUS EXAM: The patient is of healthy build and appears older than her stated age with somewhat disheveled grooming noted. On gross examination, she appears to have no physical deformities. Attitude towards the examiner was cooperative. She did not appear to be demonstrating any noteworthy mannerisms, gestures, or tics. Activity level was consistent with psychomotor excitation as evidenced by the fact that the patient had difficulty remaining seated throughout the clinical interview. Speech was verbose, uninterrupted, pressured at times. Self-reported mood is "alright." However, her affect was actually quite labile. She became tearful at different times while talking about her children. She is currently denying visual or auditory hallucinations. No overt paranoid thought processes are appreciated. Delusional thought processes have not been ruled out; however, regarding whether or not she actually has a piece of a relative's body in her freezer. Judgment and insight are poor as is impulse control. She is currently denying suicidal ideation. REVIEW OF LABORATORY DATA: Undertaken at this time, the following abnormals are noted: CBC was within normal parameters. Chemistry studies revealed low potassium at 3.2 and carbon dioxide of 20. Urinalysis demonstrated 1+ urine protein, 1+ urine ketones, urine urobilinogen was positive, trace leukocyte esterases, urine wbc's 1+, urine rbc's 1+, urine squamous epithelial cells were present as were crystals. Urine toxicology screen was presumptively positive for cannabinoids. CLINICAL IMPRESSION: The patient is a 36-year-old white female with a history of bipolar disorder who is currently admitted for manic symptoms. ADMITTING DIAGNOSES: 1. Bipolar disorder, current phase, manic. 2. Rule out cannabis-induced mood disorder. PLAN OF TREATMENT: Admit to behavioral services unit. Diet will be regular. Activity as tolerated with restrictions to the unit. The patient will participate in treatment planning activities, individual, group, and milieu therapy as well as medication management sessions and discharge planning until she is stable or referred to a higher level of care. TREATMENT GOAL: Stabilization. PROGNOSIS: Fair. ESTIMATED LENGTH OF STAY: 7 to 10 days. DISCHARGE CRITERIA: The patient will be discharged when she is no longer risk to herself or others and has met the criteria set forth by the treatment team for discharge. This case was reviewed and discussed with Dr. Bell who has concurred with the assessment, clinical impression, and initial plan of care. GIUSEPPE CORDERO NP [id number]/[facility] #: [id number] JOSIAH
[2016-07-03] MEDS: Ciprofloxacin TAB* 500 MG PO SCH ×3 (00:12→20:21)
[2016-07-03] MEDS: Ibuprofen TAB* 400 MG PO PRN ×2 (00:12→07:56)
[2016-07-03] MEDS: clonazePAM TAB(*) 0.5 MG PO SCH ×5 (00:12→21:37)
[2016-07-03] MEDS: Nicotine Inhaler* 10 MG AMP INH PRN ×5 (00:12→18:55)
[2016-07-03] MEDS: Nicotine GUM* 2 MG PO PRN (07:56)
[2016-07-03] MEDS: Vitamin THERAPEUTIC TAB PO SCH (08:00)
[2016-07-03] MEDS: Acetaminophen TAB* 325 MG PO PRN (12:08)
--- NOTE | 2016-07-03 14:26 | PN ---
Subjective - Subjective Service Type: 37380 Hosp care 15 min low complexity Subjective: Iván admits she is manic and needs psychiatric care, though she does not agree that she needs that care in this locked setting. She reports that she knows her kids are safe after her took them out of school without her knowledge, but she is still anxious about what is going on with her and kids. She clarified that she told her that if he went out again to care for the kids of his brother who recently in a motorcycle accident, then he should not come back home. She said she thought he might have wanted to shoot himself in the head, but no longer thinks so. She gave a detailed report of elaborate preparation of a package with her [id number]'s bloody motorcyle helmet and a piece of his skin to return to his family because the presence of these items in her home upset her. She talked about the family being incredulous that she had walked 5 miles to a store in [place] instead of 0.125 miles to a bar nearby. She also reports ongoing GI concerns, including diverticulitis and a pending appointment for endoscopy and colonoscopy, and nonalcoholic fatty liver disease, as well as a 4 cm cyst on her left ovary causing L flank pain, these medical matters being under the care of Dr Barreto [ sp?] at [facility]. She reports frustrated mood, denies suicidality, says she has not felt suicidal since before her last admission here. She reports she has yearly manias in May or June. Objective - Appearance Appearance: Healthy Appearing Dysmorphic Features: No Hygiene: Normal Grooming: Fairly Well Kept - Behavior Psychomotor Activities: Normal Exhibits Abnormal Movement: No - Attitude and Relatedness Attitude and Relatedness: Cooperative Eye Contact: Good - Speech Quality: Pressured Latencies: Short Quantity: Copious - Mood Patient's Decription of Mood: "I'm actually a little frustrated by your staff, but I'm trying to keep my cool." - Affect Observed Affect: Labile Affect Consistent with: Dysphoria - Thought Process Patient's Thought Process: Tangential Thought Content: No Passive Wish, No Suicidal Planning, No Homicidal Ideation, No Paranoid Ideation - Sensorium Experiencing Hallucinations: No, Sensorium is Clear Type of Hallucinations: Visual: No, Auditory: No, Command: No - Level of Consciousness Level of Consciousness: Alert Orientation: Yes Intact, Yes Orientated to Time, Yes Orientated to Place, Yes Orientated to Person - Impulse Control Impulse Control: Intact - Insight and Judgement Insight and Judgement: Poor - Group Participation Particating in Group Activities: Yes Group Participation Comments: some - Medication Management Medication Management Adherence: Yes Assessment - Assessment Merits Inpatient Hospitalization: For Immediate Safety, For Stabilization, For Ongoing Evaluation, For Discharge Planning, Pending Safe DC Plan Inpatient DSM-IV Dx: Bipolar Affective Disorder, MRE manic. rule out cannabis- induced mood disorder Clinical Impression: Iván Guan is a 36-year-old woman admitted due to disorganized thought and behavior demonstrated on a second presentation in the ED in the context of a history of bipolar disorder, raising a high likelihood of zenaida as the cause. She assesses herself as manic in fact. Her story gets complicated in the details around he children and her . Her took her 3 children out of school without her knowledge, then demanded she get a MHE before being able to see the kids. I was on-call for her first ED presentation, in which evaluators determined she was not at acute risk, so discharged her. She returned presenting as more disorganized, so was admitted out of safety concerns for inability to adequately care for herself to avoid harm. She has not stated any dangerous intent or plan in any evaluation thus far. There was a recent of her [id number] playing a role in recent events. She told me today that her had been spending too much time caring for his nieces/ nephews, and she had told him not to come back if he went out again to care for them, or at least this appears to be the gist of her somewhat disorganized report today. In any case, matters are likely to be clarified by gathering collateral from her , and perhaps a family meeting. I was told by ED evaluators during the admission process that they had tried unsuccessfully to contact him. She also reports ongoing gynecologic and GI concerns with follow ups arranged by her PCP at [facility]. Plan - Plan Treatment Plan: Name: IÁVN GUAN Birthdate: 1980 [id number] Gather collateral from family, [facility]. Clarify and order meds per reconciliation in progress by charge nurse Mustapha. Encourage groups and milieu. Offer supportive listening. Plan discharge per collateral information and hospital course, likely return of care at [facility] and f/u for owner consulting engineer, GI issues. Continued Medication Management: Continue Outpt Medication Medications: Current Medications Acetaminophen (Tylenol Tab*) 650 mg PO Q4H PRN PRN Reason: PAIN or TEMP > 101 F Last Admin: 07/03/16 12:08 Dose: 650 mg Al Hydrox/Mg Hydrox/Simethicone (Maalox Plus*) 30 ml PO Q4H PRN PRN Reason: INDIGESTION Ciprofloxacin (Cipro Tab*) 500 mg PO BID [facility] Last Admin: 07/03/16 07:56 Dose: 500 mg Clonazepam (Klonopin Tab(*)) 0.5 mg PO TID [facility] Last Admin: 07/03/16 14:13 Dose: 0.5 mg Device (Nicotine Mouth Piece*) 1 each INH .[place] Last Admin: 07/02/16 07:42 Dose: 1 each Hydroxyzine HCl (Atarax Tab*) 50 mg PO QID PRN PRN Reason: ANXIETY Last Admin: 07/02/16 11:59 Dose: 50 mg Ibuprofen (Motrin Tab*) 400 mg PO Q6H PRN PRN Reason: PAIN Last Admin: 07/03/16 07:56 Dose: 400 mg Multivitamins (Theragran Tab*) 1 tab PO DAILY [facility] Last Admin: 07/03/16 08:00 Dose: Not Given Nicotine (Nicotine Inhaler*) 10 mg INH Q2H PRN PRN Reason: CRAVING Last Admin: 07/03/16 08:03 Dose: 10 mg Nicotine Polacrilex (Nicotine Gum*) 2 mg PO Q2H PRN PRN Reason: CRAVING Last Admin: 07/03/16 07:56 Dose: 2 mg Olanzapine (Zyprexa Tab*) 5 mg PO DAILY PRN PRN Reason: AGITATION Last Admin: 07/02/16 19:33 Dose: 5 mg Olanzapine (Zyprexa Tab*) 5 mg PO BEDTIME CARIDAD - Discharge Plan Discharge Plan: Outpatient Follow Up Outpatient Program: [facility]
[2016-07-03] MEDS: hydrOXYzine HCL TAB* 50 MG PO PRN ×3 (15:33→22:00)
[2016-07-03] MEDS: oxyCODONE/Acetamin 5/325 MG* TAB PO PRN (17:06)
[2016-07-03] MEDS: OLANzapine TAB* 5 MG PO SCH ×2 (20:21→21:36)
[2016-07-03] MEDS: OLANzapine TAB* 5 MG PO PRN (22:01)
[2016-07-04] MEDS: Ondansetron ODT TAB* 4 MG PO PRN (05:46)
[2016-07-04] MEDS: oxyCODONE/Acetamin 5/325 MG* TAB PO PRN ×2 (07:23→16:20)
[2016-07-04] MEDS: hydrOXYzine HCL TAB* 50 MG PO PRN ×3 (09:22→22:26)
[2016-07-04] MEDS: Ciprofloxacin TAB* 500 MG PO SCH ×2 (09:22→21:12)
[2016-07-04] MEDS: Vitamin THERAPEUTIC TAB PO SCH (09:23)
[2016-07-04] MEDS: clonazePAM TAB(*) 0.5 MG PO SCH ×4 (09:23→21:11)
[2016-07-04] MEDS: Nicotine Inhaler* 10 MG AMP INH PRN (09:43)
--- NOTE | 2016-07-04 10:27 | PN ---
Subjective - Subjective Service Type: 15324 Hosp care 25 min moderate complexity Subjective: Iván acknowledged being manic, but perseverates on actions by her , and her legal paperwork. She agreed with idea of being in the hospital for now, and with her current medication regimen. I met with Emily Garcia from [facility] in rounds and we discussed case. Objective - Appearance Appearance: Well Developed/Nourished Hygiene: Normal Grooming: Well Kept - Behavior Psychomotor Activities: Abnormal-Increased - Attitude and Relatedness Attitude and Relatedness: Irritable Eye Contact: Good - Speech Quality: Pressured Latencies: Short Quantity: Copious - Mood Patient's Decription of Mood: "Okay" - Affect Observed Affect: Expansive Affect Consistent with: Euthymia - Thought Process Patient's Thought Process: Disorganized, Over Inclusive - perseverative Thought Content: No Passive Wish, No Suicidal Planning, No Homicidal Ideation, No Paranoid Ideation - Sensorium Experiencing Hallucinations: No, Sensorium is Clear - Level of Consciousness Level of Consciousness: Alert - Impulse Control Impulse Control: Tenuous - Insight and Judgement Insight and Judgement: Poor Assessment - Assessment Merits Inpatient Hospitalization: For Stabilization, To Initiate Treatment, For Ongoing Evaluation, For Discharge Planning, Pending Safe DC Plan Inpatient DSM-IV Dx: Bipolar Affective Disorder, MRE manic. rule out cannabis- induced mood disorder Clinical Impression: 36-year-old female with history of bipolar disorder, borderline personality considerations, multiple prior psychiatric hospitalizations. She was admitted after being brought to the hospital ED by ambulance, where she was evaluated with impairing manic symptoms, and thought disorganization. Settling into the unit. Continues off baseline and impaired with manic affective features. Does not appear frankly psychotic but condition affects her thought process. Collateral info from [facility] (discussed with Emily Garcia 07/04) is that Iván has been manic this month, seen frequently in recent days, acting more erratica , unreasonable, and agitated. Medication mgt. is with Zyprexa. Plan - Plan Treatment Plan: Name: IVÁN GUAN Birthdate: 1980 [id number] Continued Medication Management: Start Medication Medications: Current Medications Acetaminophen (Tylenol Tab*) 650 mg PO Q4H PRN PRN Reason: PAIN or TEMP > 101 F Last Admin: 07/03/16 12:08 Dose: 650 mg Al Hydrox/Mg Hydrox/Simethicone (Maalox Plus*) 30 ml PO Q4H PRN PRN Reason: INDIGESTION Ciprofloxacin (Cipro Tab*) 500 mg PO BID [facility] Last Admin: 07/04/16 09:22 Dose: 500 mg Clonazepam (Klonopin Tab(*)) 0.5 mg PO TID [facility] Last Admin: 07/04/16 09:23 Dose: Not Given Device (Nicotine Mouth Piece*) 1 each INH .[facility]TRIDGE [facility] Last Admin: 07/02/16 07:42 Dose: 1 each Hydroxyzine HCl (Atarax Tab*) 50 mg PO QID PRN PRN Reason: ANXIETY Last Admin: 07/04/16 09:22 Dose: 50 mg Ibuprofen (Motrin Tab*) 400 mg PO Q6H PRN PRN Reason: PAIN Last Admin: 07/03/16 07:56 Dose: 400 mg Multivitamins (Theragran Tab*) 1 tab PO DAILY [facility] Last Admin: 07/04/16 09:23 Dose: Not Given Nicotine (Nicotine Inhaler*) 10 mg INH Q2H PRN PRN Reason: CRAVING Last Admin: 07/04/16 09:43 Dose: 10 mg Nicotine Polacrilex (Nicotine Gum*) 2 mg PO Q2H PRN PRN Reason: CRAVING Last Admin: 07/03/16 07:56 Dose: 2 mg Olanzapine (Zyprexa Tab*) 5 mg PO DAILY PRN PRN Reason: AGITATION Last Admin: 07/03/16 22:01 Dose: 5 mg Olanzapine (Zyprexa Tab*) 5 mg PO BEDTIME [facility] Last Admin: 07/03/16 21:36 Dose: 5 mg Ondansetron HCl (Zofran Odt Tab*) 4 mg PO TID PRN PRN Reason: NAUSEA Last Admin: 07/04/16 05:46 Dose: 4 mg Oxycodone/Acetaminophen (Percocet 5/325 Tab*) 2 tab PO Q8HR PRN PRN Reason: PAIN - MODERATE TO SEVERE Last Admin: 07/04/16 07:23 Dose: 2 tab - Discharge Plan Discharge Plan: Outpatient Follow Up Outpatient Program: [facility]
[2016-07-04] MEDS: OLANzapine TAB* 5 MG PO PRN (13:10)
[2016-07-04] MEDS: Ibuprofen TAB* 400 MG PO PRN ×2 (13:12→22:26)
[2016-07-04] MEDS ORDERED: OLANzapine TAB* 10 MG PO SCH (21:00)
[2016-07-05] MEDS: Ciprofloxacin TAB* 500 MG PO SCH ×2 (08:56→20:52)
[2016-07-05] MEDS: Vitamin THERAPEUTIC TAB PO SCH (08:56)
[2016-07-05] MEDS: clonazePAM TAB(*) 0.5 MG PO SCH (08:56)
[2016-07-05] MEDS: oxyCODONE/Acetamin 5/325 MG* TAB PO PRN ×2 (08:59→19:53)
[2016-07-05] MEDS: Nicotine Inhaler* 10 MG AMP INH PRN (08:59)
--- NOTE | 2016-07-05 10:39 | PN ---
Subjective - Subjective Service Type: [id number] Hosp care 15 min low complexity Subjective: Iván was generally hostile and critical of personal interaction, and said only selected staff are interacting with her in a helpful way. She spoke non stop, and framed my responses as "interruptions and rebuttals." She read from a list and had copious amounts of notes. She readily agreed she is manic: "I get this way always in May or June!!!!" I granted most of her requests (adjustment of hydroxyzine and clonazepam, providing Bengay, giving computer access). I could not authorize staff passes due to my and staff concerns for her symptoms. She agreed with the use of Zyprexa and with targeting 15mg dose. Objective - Appearance Appearance: Well Developed/Nourished Hygiene: Normal Grooming: Fairly Well Kept - Behavior Psychomotor Activities: Abnormal-Increased - Attitude and Relatedness Attitude and Relatedness: Hostile Eye Contact: Fair - Speech Quality: Pressured Latencies: Short Quantity: Copious - Mood Patient's Decription of Mood: "Angry" - Affect Observed Affect: Expansive Affect Consistent with: Dysphoria - Thought Process Patient's Thought Process: Over Inclusive Thought Content: No Passive Wish, No Suicidal Planning, No Homicidal Ideation, No Paranoid Ideation - Sensorium Experiencing Hallucinations: No, Sensorium is Clear - Level of Consciousness Level of Consciousness: Alert - Impulse Control Impulse Control: Tenuous - Insight and Judgement Insight and Judgement: Poor Assessment - Assessment Merits Inpatient Hospitalization: For Immediate Safety, For Stabilization, To Initiate Treatment, For Ongoing Evaluation, For Discharge Planning Inpatient DSM-IV Dx: Bipolar Affective Disorder, MRE manic. rule out cannabis- induced mood disorder Clinical Impression: 36-year-old female with history of bipolar disorder, borderline personality considerations, multiple prior psychiatric hospitalizations. She was admitted after being brought to the hospital ED by ambulance, where she was evaluated with impairing manic symptoms, and thought disorganization. Continues symptomatic and off baseline with impairing manic affective features ( irritability, decreased sleep, pressure, hypergraphia, intrusiveness, poor boundaries). Does not appear frankly psychotic but condition affects her thought process. Collateral info from [facility] (discussed with Emily Garcia 07/04) is that Iván has been manic this month, seen frequently in recent days, acting more erratic, fired her clinician, and was agitated. Medication mgt. is with Zyprexa. Plan - Plan Treatment Plan: Name: IVÁN GUAN Birthdate: 1980 [id number] Continued Medication Management: Start Medication Medications: Current Medications Acetaminophen (Tylenol Tab*) 650 mg PO Q4H PRN PRN Reason: PAIN or TEMP > 101 F Last Admin: 07/03/16 12:08 Dose: 650 mg Al Hydrox/Mg Hydrox/Simethicone (Maalox Plus*) 30 ml PO Q4H PRN PRN Reason: INDIGESTION Ciprofloxacin (Cipro Tab*) 500 mg PO BID [facility] Last Admin: 07/05/16 08:56 Dose: 500 mg Clonazepam (Klonopin Tab(*)) 0.5 mg PO TID PRN PRN Reason: ANXIETY Device (Nicotine Mouth Piece*) 1 each INH .[facility] Last Admin: 07/02/16 07:42 Dose: 1 each Hydroxyzine HCl (Atarax Tab*) 25 mg PO QID PRN PRN Reason: ANXIETY Ibuprofen (Motrin Tab*) 400 mg PO Q6H PRN PRN Reason: PAIN Last Admin: 07/04/16 22:26 Dose: 400 mg Multi-Ingredient Liniment/Rub (Issac Kim*) 1 applic TOPICAL BID [facility] Multivitamins (Theragran Tab*) 1 tab PO DAILY [facility] Last Admin: 07/05/16 08:56 Dose: 1 tab Nicotine (Nicotine Inhaler*) 10 mg INH Q2H PRN PRN Reason: CRAVING Last Admin: 07/05/16 08:59 Dose: 10 mg Nicotine Polacrilex (Nicotine Gum*) 2 mg PO Q2H PRN PRN Reason: CRAVING Last Admin: 07/03/16 07:56 Dose: 2 mg Olanzapine (Zyprexa Tab*) 5 mg PO DAILY PRN PRN Reason: AGITATION Last Admin: 07/04/16 13:10 Dose: 5 mg Olanzapine (Zyprexa Tab*) 10 mg PO BEDTIME [facility] Last Admin: 07/04/16 21:12 Dose: 10 mg Ondansetron HCl (Zofran Odt Tab*) 4 mg PO TID PRN PRN Reason: NAUSEA Last Admin: 07/04/16 05:46 Dose: 4 mg Oxycodone/Acetaminophen (Percocet 5/325 Tab*) 2 tab PO Q8HR PRN PRN Reason: PAIN - MODERATE TO SEVERE Last Admin: 07/05/16 08:59 Dose: 2 tab - Discharge Plan Discharge Plan: Outpatient Follow Up
[2016-07-05] MEDS: OLANzapine TAB* 5 MG PO PRN (10:56)
[2016-07-05] MEDS: Analgesic BALM* 114 GM TOPICAL SCH ×2 (11:56→19:57)
[2016-07-05] MEDS: clonazePAM TAB(*) 0.5 MG PO PRN (13:14)
--- NOTE | 2016-07-05 13:36 | PN ---
MHU: Group Therapy Note - Service Type Service Type: [id number] Psychotherapy - Tiffanie presents as irritable, demanding and argumentative. She remains upset with both stress from recent marital problems, including displacement from role of primary parent, as well as frustration with progress in hospital. Clinical feedback encouraged establishing cooperative and productive alliance with staff. Tiffanie was later apologetic for expressing her frustration and engaged in appropriate, productive conversation.
[2016-07-05] MEDS: Ibuprofen TAB* 400 MG PO PRN (16:12)
[2016-07-05] MEDS: hydrOXYzine HCL TAB* 25 MG PO PRN (16:15)
[2016-07-05] MEDS: Ondansetron ODT TAB* 4 MG PO PRN (16:16)
[2016-07-05] MEDS: OLANzapine TAB* 10 MG PO SCH (20:51)
[2016-07-06] MEDS: hydrOXYzine HCL TAB* 25 MG PO PRN ×3 (06:17→19:51)
[2016-07-06] MEDS: Mouth Piece, Nicotine* 1 EACH CARTRIDGE INH SCH ×2 (06:17→08:46)
[2016-07-06] MEDS: Ibuprofen TAB* 400 MG PO PRN ×2 (06:17→13:41)
[2016-07-06] MEDS: Nicotine Inhaler* 10 MG AMP INH PRN ×4 (06:18→19:49)
[2016-07-06] MEDS: Ciprofloxacin TAB* 500 MG PO SCH ×2 (07:46→22:32)
[2016-07-06] MEDS: oxyCODONE/Acetamin 5/325 MG* TAB PO PRN ×3 (07:46→23:50)
[2016-07-06] MEDS: Ondansetron ODT TAB* 4 MG PO PRN ×2 (07:47→15:28)
[2016-07-06] MEDS: Analgesic BALM* 114 GM TOPICAL SCH ×2 (07:48→22:31)
[2016-07-06] MEDS: Vitamin THERAPEUTIC TAB PO SCH (07:48)
[2016-07-06] MEDS ORDERED: Mouth Piece, Nicotine* 1 EACH CARTRIDGE ONE (08:46)
[2016-07-06] MEDS: clonazePAM TAB(*) 0.5 MG PO PRN ×2 (10:54→19:47)
--- NOTE | 2016-07-06 12:12 | PN ---
Subjective - Subjective Service Type: [id number] Hosp care 15 min low complexity Subjective: Iván spoke non stop. She reports getting served court papers and adjusting to it. She expressed appreciation for comfort measures and privileges here, and apologized for "being rude... I have endometriosis and I'm on the rag!!!: I elicited that she's basically okay taking the medication. She hopes for a speedy discharge because she has a lot of things to organize " insurance for my kids, food stamps." Objective - Appearance Appearance: Well Developed/Nourished Hygiene: Normal Grooming: Well Kept - Behavior Psychomotor Activities: Abnormal-Increased - Attitude and Relatedness Attitude and Relatedness: Minimally Cooperative Eye Contact: Good - Speech Quality: Pressured Latencies: Short Quantity: Copious - Mood Patient's Decription of Mood: "Upset" - Affect Observed Affect: Expansive Affect Consistent with: Dysphoria - Thought Process Patient's Thought Process: Disorganized, Over Inclusive Thought Content: No Passive Wish, No Suicidal Planning, No Homicidal Ideation, No Paranoid Ideation - Sensorium Experiencing Hallucinations: No, Sensorium is Clear - Level of Consciousness Level of Consciousness: Agitated - mildly - Impulse Control Impulse Control: Tenuous - Insight and Judgement Insight and Judgement: Poor Assessment - Assessment Merits Inpatient Hospitalization: For Stabilization, To Initiate Treatment, For Ongoing Evaluation, Consolidate Improvements, For Discharge Planning Inpatient DSM-IV Dx: Bipolar Affective Disorder, MRE manic. rule out cannabis- induced mood disorder Clinical Impression: 36-year-old female with history of bipolar disorder, borderline personality considerations, multiple prior psychiatric hospitalizations. She was admitted after being brought to the hospital ED by ambulance, where she was evaluated with impairing manic symptoms, and thought disorganization. Continues symptomatic and off baseline with impairing manic affective features ( irritability, decreased sleep, pressure, hypergraphia, intrusiveness, poor boundaries). Some aspects are mildly improved, such as sleep overnight. She does not appear frankly psychotic but condition affects her thought process. Collateral info from [facility] (discussed with Emily Garcia 07/04) was that Iván has been manic this month, seen frequently in recent days, acting more erratic, fired her clinician, and was agitated. Medication mgt. is with Zyprexa. Plan - Plan Treatment Plan: Name: IVÁN GUAN Birthdate: 1980 [id number] Continued Medication Management: Start Medication Medications: Current Medications Acetaminophen (Tylenol Tab*) 650 mg PO Q4H PRN PRN Reason: PAIN or TEMP > 101 F Last Admin: 07/03/16 12:08 Dose: 650 mg Al Hydrox/Mg Hydrox/Simethicone (Maalox Plus*) 30 ml PO Q4H PRN PRN Reason: INDIGESTION Ciprofloxacin (Cipro Tab*) 500 mg PO BID [facility] Last Admin: 07/06/16 07:46 Dose: 500 mg Clonazepam (Klonopin Tab(*)) 0.5 mg PO TID PRN PRN Reason: ANXIETY Last Admin: 07/06/16 10:54 Dose: 0.5 mg Device (Nicotine Mouth Piece*) 1 each INH .[place] [facility] Last Admin: 07/06/16 08:46 Dose: 1 each Hydroxyzine HCl (Atarax Tab*) 25 mg PO QID PRN PRN Reason: ANXIETY Last Admin: 07/06/16 06:17 Dose: 25 mg Ibuprofen (Motrin Tab*) 400 mg PO Q6H PRN PRN Reason: PAIN Last Admin: 07/06/16 06:17 Dose: 400 mg Multi-Ingredient Liniment/Rub (Issac Kim*) 1 applic TOPICAL BID [facility] Last Admin: 07/06/16 07:48 Dose: 1 applic Multivitamins (Theragran Tab*) 1 tab PO DAILY [facility] Last Admin: 07/06/16 07:48 Dose: Not Given Nicotine (Nicotine Inhaler*) 10 mg INH Q2H PRN PRN Reason: CRAVING Last Admin: 07/06/16 08:46 Dose: 10 mg Nicotine Polacrilex (Nicotine Gum*) 2 mg PO Q2H PRN PRN Reason: CRAVING Last Admin: 07/03/16 07:56 Dose: 2 mg Olanzapine (Zyprexa Tab*) 5 mg PO DAILY PRN PRN Reason: AGITATION Last Admin: 07/05/16 10:56 Dose: 5 mg Olanzapine (Zyprexa Tab*) 15 mg PO BEDTIME [facility] Last Admin: 07/05/16 20:51 Dose: 15 mg Ondansetron HCl (Zofran Odt Tab*) 4 mg PO TID PRN PRN Reason: NAUSEA Last Admin: 06/01/17 07:47 Dose: 4 mg Oxycodone/Acetaminophen (Percocet 5/325 Tab*) 2 tab PO Q8HR PRN PRN Reason: PAIN - MODERATE TO SEVERE Last Admin: 07/06/16 07:46 Dose: 2 tab - Discharge Plan Discharge Plan: Outpatient Follow Up
[2016-07-06] MEDS: Nicotine GUM* 2 MG PO PRN (19:49)
[2016-07-06] MEDS: OLANzapine TAB* 10 MG PO SCH (22:31)
[2016-07-06] MEDS: Nicotine Patch Removal NOTE PATCH OFF SCH (22:33)
[2016-07-07] MEDS: OLANzapine TAB* 5 MG PO PRN (01:10)
[2016-07-07] MEDS: Ibuprofen TAB* 400 MG PO PRN ×3 (04:10→19:42)
[2016-07-07] MEDS: oxyCODONE/Acetamin 5/325 MG* TAB PO PRN ×2 (06:58→15:29)
[2016-07-07] MEDS: Ondansetron ODT TAB* 4 MG PO PRN (06:58)
[2016-07-07] MEDS: clonazePAM TAB(*) 0.5 MG PO PRN ×3 (09:27→20:37)
[2016-07-07] MEDS: Ciprofloxacin TAB* 500 MG PO SCH ×2 (09:28→19:43)
[2016-07-07] MEDS: Nicotine PATCH 14 MG/24 HR* PATCH TRANSDERM SCH (09:28)
[2016-07-07] MEDS: Nicotine GUM* 2 MG PO PRN (09:31)
[2016-07-07] MEDS: Vitamin THERAPEUTIC TAB PO SCH (09:32)
[2016-07-07] MEDS: Analgesic BALM* 114 GM TOPICAL SCH ×2 (09:48→19:43)
--- NOTE | 2016-07-07 11:01 | PN ---
MHU: Group Therapy Note - Service Type Service Type: [id number] Group Psychotherapy - Group Psychotherapy Note: Tiffanie engaged in a hostile diaglogue with this video games storywriter, expressing contempt for "men making decisions" regarding her continued hospitalization and subsequent detachment from her children. Her insight continues to be impaired regarding conduct culminating in her admission, as well as in her engagement with staff.
--- NOTE | 2016-07-07 11:16 | PN ---
Subjective - Subjective Service Type: [id number] Hosp care 15 min low complexity Subjective: Iván was focused on discharge planning, saying she has to organize things for her kids (SW does not think she does) - she asked me if I has spoken "to the librarian school and girl mastic floor layer leader.." - I had no idea what she was talking about. She dismissed feedback that her condition requires more time in treatment here. Objective - Appearance Appearance: Well Developed/Nourished Hygiene: Normal Grooming: Well Kept - Behavior Psychomotor Activities: Abnormal-Increased - Attitude and Relatedness Attitude and Relatedness: Irritable Eye Contact: Good - Speech Quality: Pressured Latencies: Short Quantity: Copious - Mood Patient's Decription of Mood: "Angry" - Affect Observed Affect: Expansive Affect Consistent with: Dysphoria - Thought Process Patient's Thought Process: Disorganized, Over Inclusive Thought Content: No Passive Wish, No Suicidal Planning, No Homicidal Ideation, No Paranoid Ideation - Sensorium Experiencing Hallucinations: No, Sensorium is Clear - Level of Consciousness Level of Consciousness: Alert - Impulse Control Impulse Control: Tenuous - Insight and Judgement Insight and Judgement: Poor Assessment - Assessment Merits Inpatient Hospitalization: For Stabilization, To Initiate Treatment, For Ongoing Evaluation, Consolidate Improvements, For Discharge Planning Inpatient DSM-IV Dx: Bipolar Affective Disorder, MRE manic. rule out cannabis- induced mood disorder Clinical Impression: 36-year-old female with history of bipolar disorder, borderline personality considerations, multiple prior psychiatric hospitalizations. She was admitted after being brought to the hospital ED by ambulance, where she was evaluated with impairing manic symptoms, and thought disorganization. Iván continues symptomatic and off baseline with impairing manic affective features (presenting symptoms of irritability, impaired/decreased sleep, pressure, hypergraphia, intrusiveness, poor boundaries). Some aspects are mildly improved. She does not appear frankly psychotic but condition affects her thought process nnd judgment. Collateral info from [facility] (discussed with Emily Garcia 07/04) was that Iván has been manic this month, seen frequently in recent days, acting more erratic, fired her clinician, and was agitated. Medication mgt. is with Zyprexa, titrating to effect/tolerability. Plan - Plan Treatment Plan: Name: IVÁN GUNA Birthdate: 1980 [id number] Continued Medication Management: Start Medication Medications: Current Medications Acetaminophen (Tylenol Tab*) 650 mg PO Q4H PRN PRN Reason: PAIN or TEMP > 101 F Last Admin: 07/03/16 12:08 Dose: 650 mg Al Hydrox/Mg Hydrox/Simethicone (Maalox Plus*) 30 ml PO Q4H PRN PRN Reason: INDIGESTION Ciprofloxacin (Cipro Tab*) 500 mg PO BID [facility] Last Admin: 07/07/16 09:28 Dose: 500 mg Clonazepam (Klonopin Tab(*)) 0.5 mg PO TID PRN PRN Reason: ANXIETY Last Admin: 07/07/16 09:27 Dose: 0.5 mg Device (Nicotine Mouth Piece*) 1 each INH .[facility]TRID[facility] Last Admin: 07/06/16 08:46 Dose: 1 each Hydroxyzine HCl (Atarax Tab*) 25 mg PO QID PRN PRN Reason: ANXIETY Last Admin: 07/06/16 19:51 Dose: 25 mg Ibuprofen (Motrin Tab*) 400 mg PO Q6H PRN PRN Reason: PAIN Last Admin: 07/07/16 04:10 Dose: 400 mg Multi-Ingredient Liniment/Rub (Issac Kim*) 1 applic TOPICAL BID [facility] Last Admin: 07/07/16 09:48 Dose: 1 applic Multivitamins (Theragran Tab*) 1 tab PO DAILY [facility] Last Admin: 07/07/16 09:32 Dose: Not Given Nicotine (Nicotine Inhaler*) 10 mg INH Q2H PRN PRN Reason: CRAVING Last Admin: 07/06/16 19:49 Dose: 10 mg Nicotine (Nicotine Patch 14 Mg/24 Hr*) 1 patch TRANSDERM DAILY [facility] Last Admin: 07/07/16 09:28 Dose: 1 patch Nicotine Polacrilex (Nicotine Gum*) 2 mg PO Q2H PRN PRN Reason: CRAVING Last Admin: 07/07/16 09:31 Dose: 2 mg Olanzapine (Zyprexa Tab*) 5 mg PO DAILY PRN PRN Reason: AGITATION Last Admin: 07/07/16 01:10 Dose: 5 mg Olanzapine (Zyprexa Tab*) 15 mg PO BEDTIME [facility] Last Admin: 07/06/16 22:31 Dose: 15 mg Ondansetron HCl (Zofran Odt Tab*) 4 mg PO TID PRN PRN Reason: NAUSEA Last Admin: 07/07/16 06:58 Dose: 4 mg Oxycodone/Acetaminophen (Percocet 5/325 Tab*) 2 tab PO Q8HR PRN PRN Reason: PAIN - MODERATE TO SEVERE Last Admin: 07/07/16 06:58 Dose: 2 tab Pharmacy Profile Note (Nicotine Patch Removal Note*) 1 note PATCH OFF [address] Last Admin: 07/06/16 22:33 Dose: Not Given - Discharge Plan Discharge Plan: Outpatient Follow Up Outpatient Program: [facility]
[2016-07-07] MEDS: Nicotine Inhaler* 10 MG AMP INH PRN ×2 (11:26→14:48)
[2016-07-07] MEDS: hydrOXYzine HCL TAB* 25 MG PO PRN ×3 (11:29→19:42)
[2016-07-07] MEDS: OLANzapine TAB* 10 MG PO SCH (19:42)
[2016-07-07] MEDS: Nicotine Patch Removal NOTE PATCH OFF SCH (19:44)
[2016-07-08] MEDS: Ondansetron ODT TAB* 4 MG PO PRN (05:57)
[2016-07-08] MEDS: oxyCODONE/Acetamin 5/325 MG* TAB PO PRN ×3 (05:57→22:45)
[2016-07-08] MEDS: Nicotine Inhaler* 10 MG AMP INH PRN ×3 (07:40→19:59)
[2016-07-08] MEDS: Ibuprofen TAB* 400 MG PO PRN ×2 (07:42→19:55)
[2016-07-08] MEDS: clonazePAM TAB(*) 0.5 MG PO PRN ×2 (09:12→21:10)
[2016-07-08] MEDS: Nicotine PATCH 14 MG/24 HR* PATCH TRANSDERM SCH (09:12)
[2016-07-08] MEDS: Ciprofloxacin TAB* 500 MG PO SCH ×2 (09:14→19:58)
[2016-07-08] MEDS: Analgesic BALM* 114 GM TOPICAL SCH ×2 (09:14→19:58)
[2016-07-08] MEDS: Vitamin THERAPEUTIC TAB PO SCH (09:15)
[2016-07-08] MEDS: hydrOXYzine HCL TAB* 25 MG PO PRN ×2 (11:03→16:59)
[2016-07-08] MEDS: Acetaminophen TAB* 325 MG PO PRN (11:03)
[2016-07-08] MEDS: Al Hydrox/Mg Hydrox/Simet LIQ* 30 ML UDC PO PRN ×2 (16:59→20:00)
[2016-07-08] MEDS: OLANzapine TAB* 10 MG PO SCH (19:57)
[2016-07-08] MEDS: Nicotine Patch Removal NOTE PATCH OFF SCH (22:19)
[2016-07-09] MEDS: Nicotine PATCH 14 MG/24 HR* PATCH TRANSDERM SCH ×2 (06:25→10:46)
[2016-07-09] MEDS: Nicotine Inhaler* 10 MG AMP INH PRN ×4 (06:26→20:59)
[2016-07-09] MEDS: oxyCODONE/Acetamin 5/325 MG* TAB PO PRN ×2 (06:26→16:03)
[2016-07-09] MEDS: Ciprofloxacin TAB* 500 MG PO SCH ×2 (09:34→21:00)
[2016-07-09] MEDS: hydrOXYzine HCL TAB* 25 MG PO PRN ×2 (09:36→16:03)
[2016-07-09] MEDS: Al Hydrox/Mg Hydrox/Simet LIQ* 30 ML UDC PO PRN (09:36)
[2016-07-09] MEDS: Analgesic BALM* 114 GM TOPICAL SCH ×2 (09:38→20:58)
[2016-07-09] MEDS: Ibuprofen TAB* 400 MG PO PRN ×2 (09:39→20:59)
[2016-07-09] MEDS: Ondansetron ODT TAB* 4 MG PO PRN (10:04)
[2016-07-09] MEDS: Vitamin THERAPEUTIC TAB PO SCH (10:46)
[2016-07-09] MEDS: clonazePAM TAB(*) 0.5 MG PO PRN ×3 (14:07→20:59)
[2016-07-09] MEDS: OLANzapine TAB* 10 MG PO SCH (21:00)
[2016-07-09] MEDS: Nicotine Patch Removal NOTE PATCH OFF SCH (21:01)
[2016-07-10] MEDS: Nicotine Inhaler* 10 MG AMP INH PRN ×3 (04:53→13:32)
[2016-07-10] MEDS: oxyCODONE/Acetamin 5/325 MG* TAB PO PRN ×3 (04:53→21:34)
[2016-07-10] MEDS: hydrOXYzine HCL TAB* 25 MG PO PRN ×4 (06:43→19:36)
[2016-07-10] MEDS: Ondansetron ODT TAB* 4 MG PO PRN (08:00)
[2016-07-10] MEDS: clonazePAM TAB(*) 0.5 MG PO PRN ×2 (08:01→11:57)
[2016-07-10] MEDS: Ciprofloxacin TAB* 500 MG PO SCH ×2 (08:01→21:34)
[2016-07-10] MEDS: Vitamin THERAPEUTIC TAB PO SCH (08:02)
[2016-07-10] MEDS: Nicotine PATCH 14 MG/24 HR* PATCH TRANSDERM SCH (09:12)
[2016-07-10] MEDS: Analgesic BALM* 114 GM TOPICAL SCH ×2 (09:13→21:36)
[2016-07-10] MEDS: Ibuprofen TAB* 400 MG PO PRN ×2 (09:14→19:36)
--- NOTE | 2016-07-10 13:31 | PN ---
Subjective - Subjective Service Type: 16900 Hosp care 15 min low complexity Subjective: Iván had a meeting with SW, psychologist and her this a.m. and it was contentious. The feedback from him is that she can not reasonably interact. Her questions are around privileges here - off unit walks, expanded limits on chrocheting. I let her know I am off service for several days and she was pleased, saying there are problems with our communication. Objective - Appearance Appearance: Well Developed/Nourished Hygiene: Normal Grooming: Well Kept - Behavior Psychomotor Activities: Normal - Attitude and Relatedness Attitude and Relatedness: Minimally Cooperative Eye Contact: Good - Speech Quality: Unpressured Latencies: Short Quantity: Appropriate - Mood Patient's Decription of Mood: "Irritable" - Affect Observed Affect: Tense Affect Consistent with: Dysphoria - Thought Process Patient's Thought Process: Coherent, Goal Directed Thought Content: No Passive Wish, No Suicidal Planning, No Homicidal Ideation, No Paranoid Ideation - Sensorium Experiencing Hallucinations: No, Sensorium is Clear - Level of Consciousness Level of Consciousness: Alert - Impulse Control Impulse Control: Intact - Insight and Judgement Insight and Judgement: Poor Assessment - Assessment Merits Inpatient Hospitalization: For Stabilization, To Initiate Treatment, For Ongoing Evaluation, Consolidate Improvements, For Discharge Planning Inpatient DSM-IV Dx: Bipolar Affective Disorder, MRE manic. rule out cannabis- induced mood disorder Clinical Impression: 36-year-old female with history of bipolar disorder, borderline personality considerations, multiple prior psychiatric hospitalizations. She was admitted after being brought to the hospital ED by ambulance, where she was evaluated with impairing manic symptoms, and thought disorganization. Stabilizing here. Iván is safe on checks and in basic behavioral control. She has milder sypmtoms. She remains off baseline but intensity of manic features is reduced, and her thinking is more organized. Target symptoms are irritability, impaired/decreased sleep, pressure, hypergraphia, intrusiveness, poor boundaries. She has not been frankly psychotic but her condition affects her thought process and judgment. Collateral info from [facility] (discussed with Emily Garcia 07/04), was that Iván has been manic this month, seen frequently in recent days, acting more erratic, fired her clinician, and was agitated. Medication mgt. is with Zyprexa, titrating to effect/tolerability. Plan - Plan Treatment Plan: Name: IVÁN GUAN Birthdate: 1980 [id number] Continued Medication Management: Start Medication Medications: Current Medications Acetaminophen (Tylenol Tab*) 650 mg PO Q4H PRN PRN Reason: PAIN or TEMP > 101 F Last Admin: 07/08/16 11:03 Dose: 650 mg Al Hydrox/Mg Hydrox/Simethicone (Maalox Plus*) 30 ml PO Q4H PRN PRN Reason: INDIGESTION Last Admin: 07/09/16 09:36 Dose: 30 ml Ciprofloxacin (Cipro Tab*) 500 mg PO BID [facility] Last Admin: 07/10/16 08:01 Dose: 500 mg Clonazepam (Klonopin Tab(*)) 0.5 mg PO TID PRN PRN Reason: ANXIETY Last Admin: 07/10/16 11:57 Dose: 0.5 mg Device (Nicotine Mouth Piece*) 1 each INH .[facility]TRID[facility] Last Admin: 07/06/16 08:46 Dose: 1 each Hydroxyzine HCl (Atarax Tab*) 25 mg PO QID PRN PRN Reason: ANXIETY Last Admin: 07/10/16 06:43 Dose: 25 mg Ibuprofen (Motrin Tab*) 400 mg PO Q6H PRN PRN Reason: PAIN Last Admin: 07/10/16 09:14 Dose: 400 mg Multi-Ingredient Liniment/Rub (Issac Kim*) 1 applic TOPICAL BID [facility] Last Admin: 07/10/16 09:13 Dose: 1 applic Multivitamins (Theragran Tab*) 1 tab PO DAILY [facility] Last Admin: 07/10/16 08:02 Dose: Not Given Nicotine (Nicotine Inhaler*) 10 mg INH Q2H PRN PRN Reason: CRAVING Last Admin: 07/10/16 09:56 Dose: 10 mg Nicotine (Nicotine Patch 14 Mg/24 Hr*) 1 patch TRANSDERM DAILY [facility] Last Admin: 07/10/16 09:12 Dose: 1 patch Nicotine Polacrilex (Nicotine Gum*) 2 mg PO Q2H PRN PRN Reason: CRAVING Last Admin: 07/07/16 09:31 Dose: 2 mg Olanzapine (Zyprexa Tab*) 5 mg PO DAILY PRN PRN Reason: AGITATION Last Admin: 07/07/16 01:10 Dose: 5 mg Olanzapine (Zyprexa Tab*) 15 mg PO BEDTIME [facility] Last Admin: 07/09/16 21:00 Dose: 15 mg Ondansetron HCl (Zofran Odt Tab*) 4 mg PO TID PRN PRN Reason: NAUSEA Last Admin: 07/10/16 08:00 Dose: 4 mg Oxycodone/Acetaminophen (Percocet 5/325 Tab*) 2 tab PO Q8HR PRN PRN Reason: PAIN - MODERATE TO SEVERE Last Admin: 07/10/16 04:53 Dose: 2 tab Pharmacy Profile Note (Nicotine Patch Removal Note*) 1 note PATCH OFF [facility] Last Admin: 07/09/16 21:01 Dose: 1 note - Discharge Plan Discharge Plan: Outpatient Follow Up Outpatient Program: [facility]
--- NOTE | 2016-07-10 13:35 | PN ---
MHU: Group Therapy Note - Service Type Service Type: 88828 Psychotherapy - Tiffanie met with her Refugio, as well as treatment team members including psychology and social work. Tiffanie was irritable and angry throughout this morning's discussion, engaging in an angry and entitled fashion. She was combative with her , initiating an argumentative dynamic that continued unabated despite staff efforts to redirect towards discharge planning. When the session was terminated, Tiffanie became enraged, accusing Refugio and staff of interfering with her parental role. Although Refugio is anxious to have Tiffanie come back home, her symptoms presently indicate continuing inpatient status.
[2016-07-10] MEDS: OLANzapine TAB* 10 MG PO SCH (21:34)
[2016-07-10] MEDS: Nicotine Patch Removal NOTE PATCH OFF SCH (21:35)
[2016-07-11] MEDS: Ibuprofen TAB* 400 MG PO PRN ×3 (06:20→18:27)
[2016-07-11] MEDS: Nicotine PATCH 14 MG/24 HR* PATCH TRANSDERM SCH (08:27)
[2016-07-11] MEDS: Ciprofloxacin TAB* 500 MG PO SCH ×2 (08:27→21:11)
[2016-07-11] MEDS: Vitamin THERAPEUTIC TAB PO SCH (08:28)
[2016-07-11] MEDS: oxyCODONE/Acetamin 5/325 MG* TAB PO PRN ×2 (08:29→16:44)
[2016-07-11] MEDS: Nicotine Inhaler* 10 MG AMP INH PRN ×2 (08:31→21:15)
[2016-07-11] MEDS: Analgesic BALM* 114 GM TOPICAL SCH ×2 (09:07→21:11)
[2016-07-11] MEDS: clonazePAM TAB(*) 0.5 MG PO PRN ×2 (10:58→21:14)
[2016-07-11] MEDS: Al Hydrox/Mg Hydrox/Simet LIQ* 30 ML UDC PO PRN (11:39)
[2016-07-11] MEDS: hydrOXYzine HCL TAB* 25 MG PO PRN ×2 (14:38→18:28)
[2016-07-11] MEDS: OLANzapine TAB* 10 MG PO SCH (21:12)
[2016-07-11] MEDS: Nicotine Patch Removal NOTE PATCH OFF SCH (21:12)
[2016-07-12] MEDS: Nicotine Inhaler* 10 MG AMP INH PRN ×2 (06:25→21:56)
[2016-07-12] MEDS: oxyCODONE/Acetamin 5/325 MG* TAB PO PRN ×2 (06:25→14:28)
[2016-07-12] MEDS: hydrOXYzine HCL TAB* 25 MG PO PRN (06:25)
[2016-07-12] MEDS: Nicotine PATCH 14 MG/24 HR* PATCH TRANSDERM SCH (09:54)
[2016-07-12] MEDS: Vitamin THERAPEUTIC TAB PO SCH (09:54)
[2016-07-12] MEDS: Ciprofloxacin TAB* 500 MG PO SCH (09:55)
[2016-07-12] MEDS: Analgesic BALM* 114 GM TOPICAL SCH ×2 (09:55→21:53)
[2016-07-12] MEDS: Ibuprofen TAB* 400 MG PO PRN ×2 (09:57→19:33)
[2016-07-12] MEDS: clonazePAM TAB(*) 0.5 MG PO PRN ×2 (10:30→19:33)
--- NOTE | 2016-07-12 13:34 | PN ---
Subjective - Subjective Service Type: 87039 Hosp care 35 min high complexity Subjective: Met with patient Tiffanie, psychologist Dr Mendez, director social service Eileen Carrizales, and nurse Emilia Page. Tiffanie continues to press for discharge, citing her children's need of her. She would like to discharge to the home she shares with her and children. She acknowledges that the meeting with her on Sunday did not go well. Tiffanie asks for staff pass, expansion of crocheting privileges, and permission to use her home-made rice heating pack. She accepted that we would discuss staff pass again tomorrow on treatment team. She accepted that the issue of crocheting privileges had been discussed on treatment team already with Dr De La Torre, and that we would keep to the times of 2-3 pm and 6-7 pm. She expressed concern that she wants more time to engage in mindfulness exercises similar to the function of crocheting for her. I will place a provider to nurse communication order indicating I approve of the use of her home-made heating pack, so long as it is not heated in a microwave used for patient food, but instead is heated in the dryer. We discussed Tiffanie's agitation in response to having her room moved yesterday morning without being informed of it. She said she understood she was being moved to a single room because she had been disturbing other patients while sleepwalking. We agreed to inform her of a move before it occurs if this is necessary again. Tiffanie reiterated multiple medical complaints, and complaints of not having had her medical complaints addressed. Most complaints were of missed follow-ups for sub-acute and chronic issues, eg missing scheduled scoping above and below at [facility] for GI issues. When directed to focus on acute concerns, her complaint was limited to increased abdominal distension and pain while here. I spoke with her GI BUTTON ATTACHING MACHINE OPERATOR Emily Darnell, who recommended restarting omeprazole 40 mg daily on an empty stomach and Bentyl 20 mg tid prn. I spoke last night with her PCP Becky Poe MD, who reported that she did not know of any acute concerns raised in their last meeting that would need immediate follow up here at [facility]. Dr Poe found that she was to receive a 10 day course of Ciprofloxacin for a question of diverticulitis: she has received a 10 day course here. Tiffanie stated that she preferred not to pursue hospitalist consultation for her complaints of chronic and sub-acute GI and Ged Tutor issues, that she would try restarting the omeprazole and Bentyl as recommended by Nurse Mann, and would let us know how this affects her abdominal distension and pain. She also complained of constipation, a sharp change from preceding watery diarrhea. I also reviewed with Tiffanie her current medications. She asked that the Percocet dose be changed from q8 to q6 hours with only the oxycodone component, and that clonazepam and hydroxyzine be checked to ensure they were available PRN rather than standing. She refused to restart lithium, saying it caused excessive thirst resulting in overconsumption of soda, and fatigue resulting in an obligatory return to bed at 11:30 am daily after getting up at 6:30 to get her kids ready for the day. She refused also a trial of Depakote, but could not recall specific adverse reaction. Tiffanie reported feeling uncertain if she has had zenaida. I gave her a patient information brochure to help clarify to her the symptoms of the illness. She reports that she suffers primarily from borderline personality disorder. Zahira Grayson NP of [facility] reports that Tiffanie stopped lithium about 2 months ago. She took Depakote [id number] at a dose increased to 2000 mg daily in November 2011. Zahira also reports she has not been coming in for care with any regularity. Objective - Appearance Appearance: Well Developed/Nourished Dysmorphic Features: No Hygiene: Normal Grooming: Fairly Well Kept - Behavior Psychomotor Activities: Abnormal-Increased Exhibits Abnormal Movement: No - Attitude and Relatedness Attitude and Relatedness: Superficially Cooperative Eye Contact: Good - Speech Quality: Pressured Latencies: Short Quantity: Copious - Mood Patient's Decription of Mood: "Upset" - Affect Observed Affect: Labile Affect Consistent with: Dysphoria - Thought Process Patient's Thought Process: Circumstantial Thought Content: No Passive Wish, No Suicidal Planning, No Homicidal Ideation, No Paranoid Ideation - Sensorium Experiencing Hallucinations: No, Sensorium is Clear Type of Hallucinations: Visual: No, Auditory: No, Command: No - Level of Consciousness Level of Consciousness: Alert Orientation: Yes Intact, Yes Orientated to Time, Yes Orientated to Place, Yes Orientated to Person - Impulse Control Impulse Control: Tenuous - Insight and Judgement Insight and Judgement: Poor - Group Participation Particating in Group Activities: Yes - Medication Management Medication Management Adherence: Yes Assessment - Assessment Merits Inpatient Hospitalization: For Stabilization, Consolidate Improvements, For Discharge Planning Inpatient DSM-IV Dx: Bipolar Affective Disorder, MRE manic. rule out cannabis- induced mood disorder Clinical Impression: 5 Tiffanie Guan is a 36-year-old woman admitted due to disorganized thought and behavior demonstrated on a second presentation in the ED in the context of a history of bipolar disorder, raising a high likelihood of zenaida as the cause. She assesses herself as manic in fact. Her story gets complicated in the details around he children and her . Her took her 3 children out of school without her knowledge, then demanded she get a MHE before being able to see the kids. I was on-call for her first ED presentation, in which evaluators determined she was not at acute risk, so we discharged her. She returned presenting as more disorganized, so was admitted out of safety concerns for inability to adequately care for herself to avoid harm. She has not stated any dangerous intent or plan in any evaluation thus far. There was a recent of her [id number] playing a role in recent events. She told me today that her had been spending too much time caring for his nieces/ nephews, and she had told him not to come back if he went out again to care for them, or at least this appears to be the gist of her somewhat disorganized report today. In any case, matters are likely to be clarified by gathering collateral from her , and perhaps a family meeting. I was told by ED evaluators during the admission process that they had tried unsuccessfully to contact him. She also reports ongoing gynecologic and GI concerns with follow ups arranged by her PCP at [facility]. 07.12.[address] De La Torre 07.11.16. Tiffanie continues to show signs of zenaida, refuses lithium or Depakote. Will address multiple medical issues outpatient except for single specific acute complaint of increased abdominal distension and pain: she agrees to try restarting antispasmodic and PPI against this per her GI BUTTON ATTACHING MACHINE OPERATOR, hold off on hospitalist consult unless pain/distension persists (she has been afebrile throughout). Will need to confirm with that her home is a safe place as regards residual zenaida for her and her family before arranging discharge. Plan - Plan Treatment Plan: Name: TIFFANIE GUAN Birthdate: 1980 [id number] D/C antibiotic Ciprofloxacin with 10 day course complete as per Dr Ferro. Add antispasmodic Bentyl and PPI omeprazole against GI pain. Encourage groups and milieu. Offer supportive listening. Plan discharge per collateral information and hospital course, likely return of care at [facility] and f/u for physician extender , GI issues. Discharge depends on family preparedness for Tiffanie's return home , and their sense of safety with any residual manic symptoms. Ordered computer time to work on resume. Clarified crocheting from 2-3 pm and 6-7 pm only. Ordered to allow use of her hot pack for pain. Continued Medication Management: Different Medication Medications: Current Medications Acetaminophen (Tylenol Tab*) 650 mg PO Q4H PRN PRN Reason: PAIN or TEMP > 101 F Last Admin: 07/08/16 11:03 Dose: 650 mg Al Hydrox/Mg Hydrox/Simethicone (Maalox Plus*) 30 ml PO Q4H PRN PRN Reason: INDIGESTION Last Admin: 07/11/16 11:39 Dose: 30 ml Ciprofloxacin (Cipro Tab*) 500 mg PO BID [facility] Last Admin: 07/12/16 09:55 Dose: 500 mg Clonazepam (Klonopin Tab(*)) 0.5 mg PO TID PRN PRN Reason: ANXIETY Last Admin: 07/12/16 10:30 Dose: 0.5 mg Device (Nicotine Mouth Piece*) 1 each INH .CARTRIDGE [facility] Last Admin: 07/06/16 08:46 Dose: 1 each Hydroxyzine HCl (Atarax Tab*) 25 mg PO QID PRN PRN Reason: ANXIETY Last Admin: 07/12/16 06:25 Dose: 25 mg Ibuprofen (Motrin Tab*) 400 mg PO Q6H PRN PRN Reason: PAIN Last Admin: 07/12/16 09:57 Dose: 400 mg Multi-Ingredient Liniment/Rub (Issac Kim*) 1 applic TOPICAL BID [facility] Last Admin: 07/12/16 09:55 Dose: Not Given Multivitamins (Theragran Tab*) 1 tab PO DAILY [facility] Last Admin: 07/12/16 09:54 Dose: Not Given Nicotine (Nicotine Inhaler*) 10 mg INH Q2H PRN PRN Reason: CRAVING Last Admin: 07/12/16 06:25 Dose: 10 mg Nicotine (Nicotine Patch 14 Mg/24 Hr*) 1 patch TRANSDERM DAILY [facility] Last Admin: 07/12/16 09:54 Dose: 1 patch Nicotine Polacrilex (Nicotine Gum*) 2 mg PO Q2H PRN PRN Reason: CRAVING Last Admin: 07/07/16 09:31 Dose: 2 mg Olanzapine (Zyprexa Tab*) 5 mg PO DAILY PRN PRN Reason: AGITATION Last Admin: 07/07/16 01:10 Dose: 5 mg Olanzapine (Zyprexa Tab*) 20 mg PO BEDTIME [facility] Last Admin: 07/11/16 21:12 Dose: 20 mg Ondansetron HCl (Zofran Odt Tab*) 4 mg PO TID PRN PRN Reason: NAUSEA Last Admin: 07/10/16 08:00 Dose: 4 mg Oxycodone/Acetaminophen (Percocet 5/325 Tab*) 2 tab PO Q8HR PRN PRN Reason: PAIN - MODERATE TO SEVERE Last Admin: 07/12/16 06:25 Dose: 2 tab Pharmacy Profile Note (Nicotine Patch Removal Note*) 1 note PATCH OFF [address] [facility] Last Admin: 07/11/16 21:12 Dose: 1 note - Discharge Plan Discharge Plan: Outpatient Follow Up Outpatient Program: [facility]
[2016-07-12] MEDS: Dicyclomine CAP* 10 MG PO PRN (19:27)
[2016-07-12] MEDS: oxyCODONE TAB* 5 MG TAB PO PRN (21:52)
[2016-07-12] MEDS: Acetaminophen TAB* 325 MG PO PRN (21:52)
[2016-07-12] MEDS: Nicotine Patch Removal NOTE PATCH OFF SCH (21:53)
[2016-07-12] MEDS: OLANzapine TAB* 10 MG PO SCH (21:54)
[2016-07-13] MEDS: Omeprazole CAP* 20 MG PO SCH (06:26)
[2016-07-13] MEDS: Vitamin THERAPEUTIC TAB PO SCH (07:50)
[2016-07-13] MEDS: Analgesic BALM* 114 GM TOPICAL SCH ×2 (07:50→20:05)
[2016-07-13] MEDS: Nicotine PATCH 14 MG/24 HR* PATCH TRANSDERM SCH (07:51)
[2016-07-13] MEDS: Dicyclomine CAP* 10 MG PO PRN ×4 (07:53→22:25)
[2016-07-13] MEDS: oxyCODONE TAB* 5 MG TAB PO PRN ×3 (07:56→20:07)
[2016-07-13] MEDS: Nicotine Inhaler* 10 MG AMP INH PRN ×2 (07:56→21:19)
[2016-07-13] MEDS: Mouth Piece, Nicotine* 1 EACH CARTRIDGE INH SCH (07:56)
[2016-07-13] MEDS: hydrOXYzine HCL TAB* 25 MG PO PRN ×3 (07:56→21:17)
[2016-07-13] MEDS: Ondansetron ODT TAB* 4 MG PO PRN ×2 (07:58→14:01)
[2016-07-13] MEDS: Ibuprofen TAB* 400 MG PO PRN (10:03)
[2016-07-13] MEDS: Nicotine PATCH 21 MG/24 HR* PATCH TRANSDERM SCH (12:20)
[2016-07-13] MEDS: Docusate CAP* 100 MG PO PRN (12:21)
[2016-07-13] MEDS: Acetaminophen TAB* 325 MG PO PRN (12:22)
[2016-07-13] MEDS: clonazePAM TAB(*) 0.5 MG PO PRN ×2 (12:23→20:10)
[2016-07-13] MEDS: OLANzapine TAB* 5 MG PO PRN (13:08)
[2016-07-13] MEDS: Nicotine Patch Removal NOTE PATCH OFF SCH (21:18)
[2016-07-13] MEDS: OLANzapine TAB* 10 MG PO SCH (22:25)
[2016-07-14] MEDS: Ibuprofen TAB* 400 MG PO PRN ×4 (00:45→22:39)
[2016-07-14] MEDS: clonazePAM TAB(*) 0.5 MG PO PRN ×2 (00:45→16:16)
[2016-07-14] MEDS: Omeprazole CAP* 20 MG PO SCH (05:55)
[2016-07-14] MEDS: Docusate CAP* 100 MG PO PRN (07:00)
[2016-07-14] MEDS: oxyCODONE TAB* 5 MG TAB PO PRN ×3 (07:00→18:56)
[2016-07-14] MEDS: Nicotine Inhaler* 10 MG AMP INH PRN (07:00)
[2016-07-14] MEDS: hydrOXYzine HCL TAB* 25 MG PO PRN ×3 (07:00→22:39)
[2016-07-14] MEDS: Nicotine PATCH 21 MG/24 HR* PATCH TRANSDERM SCH (08:01)
[2016-07-14] MEDS: Vitamin THERAPEUTIC TAB PO SCH (08:03)
[2016-07-14] MEDS: Analgesic BALM* 114 GM TOPICAL SCH ×3 (08:31→22:40)
[2016-07-14] MEDS: Dicyclomine CAP* 10 MG PO PRN ×3 (09:24→21:33)
[2016-07-14] MEDS: Ondansetron ODT TAB* 4 MG PO PRN ×2 (09:31→22:53)
--- NOTE | 2016-07-14 15:43 | PN ---
Subjective - Subjective Service Type: 16362 Hosp care 25 min moderate complexity Subjective: Iván is very unhappy that she cannot attend her 6 yr old daughter's girl load out person ceremony grisel. She continues to refuse lithium or depakote, and today also turned down Trileptal, but agreed to begin a trial of Lamictal against the anticipated depression that always follows her manic episodes she says. She also complained of staff not being responsive to her requests for PRN medication , and suggested we should work on improving availability of PRN medications. Objective - Appearance Appearance: Well Developed/Nourished Dysmorphic Features: No Hygiene: Normal Grooming: Well Kept - Behavior Psychomotor Activities: Normal Exhibits Abnormal Movement: No - Attitude and Relatedness Attitude and Relatedness: Irritable Eye Contact: Good - Speech Quality: Pressured Latencies: Short Quantity: Copious - Mood Patient's Decription of Mood: "Sad" - Affect Observed Affect: Tearful Affect Consistent with: Dysphoria - Thought Process Patient's Thought Process: Coherent, Goal Directed Thought Content: No Passive Wish, No Suicidal Planning, No Homicidal Ideation, No Paranoid Ideation - Sensorium Experiencing Hallucinations: No, Sensorium is Clear Type of Hallucinations: Visual: No, Auditory: No, Command: No - Level of Consciousness Level of Consciousness: Agitated - mildly Orientation: Yes Intact, Yes Orientated to Time, Yes Orientated to Place, Yes Orientated to Person - Impulse Control Impulse Control: Tenuous - Insight and Judgement Insight and Judgement: Poor - Group Participation Particating in Group Activities: Yes Group Participation Comments: but declining most groups - Medication Management Medication Management Adherence: Yes Assessment - Assessment Merits Inpatient Hospitalization: For Stabilization, For Discharge Planning, Pending Safe DC Plan Inpatient DSM-IV Dx: Bipolar Affective Disorder, MRE manic. rule out cannabis- induced mood disorder Clinical Impression: 5.29.17 Iván Guan is a 36-year-old woman admitted due to disorganized thought and behavior demonstrated on a second presentation in the ED in the context of a history of bipolar disorder, raising a high likelihood of zenaida as the cause. She assesses herself as manic in fact. Her story gets complicated in the details around he children and her . Her took her 3 children out of school without her knowledge, then demanded she get a MHE before being able to see the kids. I was on-call for her first ED presentation, in which evaluators determined she was not at acute risk, so we discharged her. She returned presenting as more disorganized, so was admitted out of safety concerns for inability to adequately care for herself to avoid harm. She has not stated any dangerous intent or plan in any evaluation thus far. There was a recent of her [id number] playing a role in recent events. She told me today that her had been spending too much time caring for his nieces/ nephews, and she had told him not to come back if he went out again to care for them, or at least this appears to be the gist of her somewhat disorganized report today. In any case, matters are likely to be clarified by gathering collateral from her , and perhaps a family meeting. I was told by ED evaluators during the admission process that they had tried unsuccessfully to contact him. She also reports ongoing gynecologic and GI concerns with follow ups arranged by her PCP at [facility]. 07.12.[address] De La Torre 07.11.16. Iván continues to show signs of zenaida, refuses lithium or Depakote. Will address multiple medical issues outpatient except for single specific acute complaint of increased abdominal distension and pain: she agrees to try restarting antispasmodic and PPI against this per her GI MAINTENANCE SHOP LABORER, hold off on hospitalist consult unless pain/distension persists (she has been afebrile throughout). Will need to confirm with that her home is a safe place as regards residual zenaida for her and her family before arranging discharge. 07.14.16 Iván continues to present as labile, pressured and manic, refusing lithium or Depakote, stating she feels she has only started the Zyprexa and wants to give it time to work for her before trying another medication. She did agree to a trial of Lamictal, for which we discussed side-effects, expected benefit against recurrent depression with lower likelihood of benefit against zenaida, and need for slow up-titration to avoid risk of serious rash, so unlikely to be of benefit acutely, but may help avert subsequent depressive bouts. Dr Cuellar recommended magnesium citrate 150 mL to address complaint of constipation. Plan - Plan Treatment Plan: Name: IVÁN GUAN Birthdate: 1980 [id number] Iván reports that addition of antispasmodic Bentyl and PPI omeprazole against GI pain unhelpful. Encourage groups and milieu. Offer supportive listening. Plan discharge per collateral information and hospital course, likely return of care at [facility] and f/u for dredgemaster, GI issues. Discharge depends on family preparedness for Iván's return home, and their sense of safety with any residual manic symptoms. Continued Medication Management: Different Medication Medications: Current Medications Acetaminophen (Tylenol Tab*) 650 mg PO Q4H PRN PRN Reason: PAIN or TEMP > 101 F Last Admin: 07/13/16 12:22 Dose: 650 mg Al Hydrox/Mg Hydrox/Simethicone (Maalox Plus*) 30 ml PO Q4H PRN PRN Reason: INDIGESTION Last Admin: 07/11/16 11:39 Dose: 30 ml Clonazepam (Klonopin Tab(*)) 0.5 mg PO TID PRN PRN Reason: ANXIETY Last Admin: 07/14/16 00:45 Dose: 0.5 mg Device (Nicotine Mouth Piece*) 1 each INH .[facility]TRIDGE [facility] Last Admin: 07/13/16 07:56 Dose: 1 each Dicyclomine HCl (Bentyl Cap*) 20 mg PO TID PRN PRN Reason: abdominal cramping Last Admin: 07/14/16 09:24 Dose: 20 mg Docusate Sodium (Colace Cap*) 100 mg PO DAILY PRN PRN Reason: CONSTIPATION Last Admin: 07/14/16 07:00 Dose: 100 mg Hydroxyzine HCl (Atarax Tab*) 25 mg PO QID PRN PRN Reason: ANXIETY Last Admin: 07/14/16 13:13 Dose: 25 mg Ibuprofen (Motrin Tab*) 400 mg PO Q6H PRN PRN Reason: PAIN Last Admin: 07/14/16 08:01 Dose: 400 mg Multi-Ingredient Liniment/Rub (Issac Kim*) 1 applic TOPICAL BID [facility] Last Admin: 07/14/16 09:26 Dose: 1 applic Multivitamins (Theragran Tab*) 1 tab PO DAILY [facility] Last Admin: 07/14/16 08:03 Dose: Not Given Nicotine (Nicotine Inhaler*) 10 mg INH Q2H PRN PRN Reason: CRAVING Last Admin: 07/14/16 07:00 Dose: 10 mg Nicotine (Nicotine Patch 21 Mg/24 Hr*) 1 patch TRANSDERM Q24HR [facility] Last Admin: 07/14/16 08:01 Dose: 1 patch Nicotine Polacrilex (Nicotine Gum*) 2 mg PO Q2H PRN PRN Reason: CRAVING Last Admin: 07/07/16 09:31 Dose: 2 mg Olanzapine (Zyprexa Tab*) 5 mg PO DAILY PRN PRN Reason: AGITATION Last Admin: 07/13/16 13:08 Dose: 5 mg Olanzapine (Zyprexa Tab*) 20 mg PO BEDTIME [facility] Last Admin: 07/13/16 22:25 Dose: 20 mg Omeprazole (Prilosec Cap*) 20 mg PO DAILY@0600 [facility] Last Admin: 07/14/16 05:55 Dose: 20 mg Ondansetron HCl (Zofran Odt Tab*) 4 mg PO TID PRN PRN Reason: NAUSEA Last Admin: 07/14/16 09:31 Dose: 4 mg Oxycodone HCl (Roxycodone Tab*) 5 mg PO Q6H PRN PRN Reason: abdominal pain Last Admin: 07/14/16 13:12 Dose: 5 mg Pharmacy Profile Note (Nicotine Patch Removal Note*) 1 note PATCH OFF [address]100 [facility] Last Admin: 07/13/16 21:18 Dose: Not Given - Discharge Plan Discharge Plan: Outpatient Follow Up Outpatient Program: [facility]
[2016-07-14] MEDS ORDERED: Magnesium CITRATE* 300 ML BTL PO ONE ×2 (15:51→18:23)
[2016-07-14] MEDS: lamoTRIgine TAB(*) 25 MG PO SCH (18:56)
[2016-07-14] MEDS: OLANzapine TAB* 10 MG PO SCH (21:26)
[2016-07-14] MEDS: Acetaminophen TAB* 325 MG PO PRN (21:33)
[2016-07-14] MEDS: Nicotine Patch Removal NOTE PATCH OFF SCH (22:53)
[2016-07-15] MEDS: clonazePAM TAB(*) 0.5 MG PO PRN ×3 (01:01→21:17)
[2016-07-15] MEDS: oxyCODONE TAB* 5 MG TAB PO PRN ×4 (01:02→21:17)
[2016-07-15] MEDS: Acetaminophen TAB* 325 MG PO PRN ×2 (01:02→13:10)
[2016-07-15] MEDS: Omeprazole CAP* 20 MG PO SCH (07:39)
[2016-07-15] MEDS: Analgesic BALM* 114 GM TOPICAL SCH ×2 (07:40→21:40)
[2016-07-15] MEDS: Dicyclomine CAP* 10 MG PO PRN ×3 (07:43→23:45)
[2016-07-15] MEDS: Nicotine PATCH 21 MG/24 HR* PATCH TRANSDERM SCH (07:44)
[2016-07-15] MEDS: lamoTRIgine TAB(*) 25 MG PO SCH ×2 (07:44→08:16)
[2016-07-15] MEDS: Vitamin THERAPEUTIC TAB PO SCH (08:15)
--- NOTE | 2016-07-15 10:00 | RAD ---
HISTORY: Abdominal distention rule out obstruction COMPARISONS: CT dated June 09, 2016 VIEWS: Frontal views of the abdomen. FINDINGS: BOWEL: There is a nonobstructive bowel gas pattern. There is a large amount of stool within the colon. CALCULI: There are no abnormal calculi. BONES AND SOFT TISSUES: There are no osseous abnormalities. OTHER FINDINGS: The lung bases are clear. There is no subphrenic gas. IMPRESSION: NONOBSTRUCTIVE BOWEL GAS PATTERN. LARGE AMOUNT OF STOOL THROUGHOUT THE COLON.
[2016-07-15] MEDS: hydrOXYzine HCL TAB* 25 MG PO PRN ×2 (11:15→18:02)
[2016-07-15] MEDS: Ibuprofen TAB* 400 MG PO PRN ×2 (11:15→22:55)
[2016-07-15] MEDS ORDERED: Glycerin ADULT SUPP PR ONE (12:00)
[2016-07-15] MEDS: OLANzapine TAB* 5 MG PO PRN (14:29)
[2016-07-15] MEDS: OLANzapine TAB* 10 MG PO SCH (21:13)
[2016-07-15] MEDS: Docusate CAP* 100 MG PO PRN (21:17)
[2016-07-15] MEDS: Nicotine Patch Removal NOTE PATCH OFF SCH (21:40)
[2016-07-16] MEDS: Nicotine Inhaler* 10 MG AMP INH PRN ×2 (05:30→14:44)
[2016-07-16] MEDS: Dicyclomine CAP* 10 MG PO PRN ×3 (05:30→20:13)
[2016-07-16] MEDS: oxyCODONE TAB* 5 MG TAB PO PRN ×3 (05:30→18:05)
[2016-07-16] MEDS: Omeprazole CAP* 20 MG PO SCH (05:37)
[2016-07-16] MEDS: Ibuprofen TAB* 400 MG PO PRN ×2 (07:56→14:43)
[2016-07-16] MEDS: lamoTRIgine TAB(*) 25 MG PO SCH ×2 (07:57→08:01)
[2016-07-16] MEDS: Ondansetron ODT TAB* 4 MG PO PRN (07:57)
[2016-07-16] MEDS: Nicotine PATCH 21 MG/24 HR* PATCH TRANSDERM SCH (07:58)
[2016-07-16] MEDS: Analgesic BALM* 114 GM TOPICAL SCH ×2 (08:16→20:50)
[2016-07-16] MEDS: Vitamin THERAPEUTIC TAB PO SCH (08:17)
[2016-07-16] MEDS: hydrOXYzine HCL TAB* 25 MG PO PRN (08:55)
[2016-07-16] MEDS: Acetaminophen TAB* 325 MG PO PRN ×2 (10:38→21:36)
[2016-07-16] MEDS: Docusate CAP* 100 MG PO PRN (10:38)
[2016-07-16] MEDS: clonazePAM TAB(*) 0.5 MG PO PRN ×3 (11:47→20:15)
[2016-07-16] MEDS: OLANzapine TAB* 5 MG PO PRN (14:43)
[2016-07-16] MEDS: OLANzapine TAB* 10 MG PO SCH (20:13)
[2016-07-16] MEDS: Nicotine Patch Removal NOTE PATCH OFF SCH (20:17)
[2016-07-16] MEDS ORDERED: Sodium Phosphate ADULT ENEMA* 118 ml bottle PR ONE (22:00)
[2016-07-17] MEDS: Ibuprofen TAB* 400 MG PO PRN ×3 (06:25→21:51)
[2016-07-17] MEDS: oxyCODONE TAB* 5 MG TAB PO PRN ×3 (08:09→20:43)
[2016-07-17] MEDS: Dicyclomine CAP* 10 MG PO PRN ×2 (08:10→20:43)
[2016-07-17] MEDS: Nicotine PATCH 21 MG/24 HR* PATCH TRANSDERM SCH (08:10)
[2016-07-17] MEDS: Omeprazole CAP* 20 MG PO SCH (08:12)
[2016-07-17] MEDS: Analgesic BALM* 114 GM TOPICAL SCH ×2 (08:33→20:42)
[2016-07-17] MEDS: Vitamin THERAPEUTIC TAB PO SCH (08:33)
[2016-07-17] MEDS: lamoTRIgine TAB(*) 25 MG PO SCH (08:33)
[2016-07-17] MEDS: Acetaminophen TAB* 325 MG PO PRN ×2 (11:07→18:50)
[2016-07-17] MEDS: hydrOXYzine HCL TAB* 25 MG PO PRN ×2 (11:10→14:31)
--- NOTE | 2016-07-17 13:09 | PN ---
MHU: Group Therapy Note - Service Type Service Type: [id number] Group Psychotherapy - Cognitive Behavioral Group Therapy ( CBT):Patient was attentive and participatory in CBT programming this morning, and remained in good behavioral control. Patient expressed positive insights regarding relevant treatment interventions and goals.
--- NOTE | 2016-07-17 13:58 | PN ---
Subjective - Subjective Service Type: 56994 Hosp care 15 min low complexity Subjective: The patient is met for the first time this morning, as I have taken over her care from the departing Dr. Bell. Her father, Torres, and SW Eileen Carrizales are also present. The patient appears hyperverbal and tearful at times, especially when discussing the wellbeing of her three children (aged 6-10). Iván has been refusing her lamotrigine over the weekend and states her reasoning that she has already started one psychiatric medication this hospitalization, olanzapine, and does not want to complicate things by starting a second. "How will I know which one is working if I'm started on two at the same time?" She does not appear paranoid or unreasonable at any point, although very much hypomanic. With much effort, Ms. Carrizales is able to convince her to include her , with whom she is quarreling, on her REBEKAH for d/c planning purposes. She denies SI or HI. Objective - Appearance Appearance: Well Developed/Nourished Dysmorphic Features: No Hygiene: Normal Grooming: Well Kept - Behavior Psychomotor Activities: Normal Exhibits Abnormal Movement: No - Attitude and Relatedness Attitude and Relatedness: Cooperative Eye Contact: Fair - Speech Quality: Unpressured Latencies: Normal Quantity: Appropriate - Mood Patient's Decription of Mood: "Fine" - Affect Observed Affect: Tearful Affect Consistent with: Euphoria - Thought Process Patient's Thought Process: Over Inclusive Thought Content: No Passive Wish, No Suicidal Planning, No Homicidal Ideation, No Paranoid Ideation - Sensorium Experiencing Hallucinations: No, Sensorium is Clear Type of Hallucinations: Visual: No, Auditory: No, Command: No - Level of Consciousness Level of Consciousness: Alert Orientation: Yes Intact, Yes Orientated to Time, Yes Orientated to Place, Yes Orientated to Person - Impulse Control Impulse Control: Tenuous - Insight and Judgement Insight and Judgement: Fair - Group Participation Particating in Group Activities: No - Medication Management Medication Management Adherence: Yes Assessment - Assessment Merits Inpatient Hospitalization: For Immediate Safety, For Stabilization Inpatient DSM-IV Dx: Bipolar Affective Disorder, MRE manic. rule out cannabis- induced mood disorder Clinical Impression: 36 y.o. , white female with a history of bipolar and borderline personality disorders who presented to the hospital with acute manic psychosis and intramarital conflict with her . Plan - Plan Treatment Plan: Name: IVÁN GUAN Birthdate: 1980 [id number] The patient has been improving on olanzapine 20mg PO qhs, which she appears to be tolerating well. She declines a hospitalist consult for constipation due to her preference to follow up shortly with outpatient PCP, a doctor Crepe at [facility]. Still symptomatic. Await med effect. Continued Medication Management: Start Medication Medications: Current Medications Acetaminophen (Tylenol Tab*) 650 mg PO Q4H PRN PRN Reason: PAIN or TEMP > 101 F Last Admin: 07/17/16 11:07 Dose: 650 mg Al Hydrox/Mg Hydrox/Simethicone (Maalox Plus*) 30 ml PO Q4H PRN PRN Reason: INDIGESTION Last Admin: 07/11/16 11:39 Dose: 30 ml Clonazepam (Klonopin Tab(*)) 0.5 mg PO TID PRN PRN Reason: ANXIETY Last Admin: 07/16/16 20:15 Dose: 0.5 mg Device (Nicotine Mouth Piece*) 1 each INH .[facility] Last Admin: 07/13/16 07:56 Dose: 1 each Dicyclomine HCl (Bentyl Cap*) 20 mg PO TID PRN PRN Reason: abdominal cramping Last Admin: 07/17/16 08:10 Dose: 20 mg Docusate Sodium (Colace Cap*) 100 mg PO DAILY PRN PRN Reason: CONSTIPATION Last Admin: 07/16/16 10:38 Dose: 100 mg Hydroxyzine HCl (Atarax Tab*) 25 mg PO QID PRN PRN Reason: ANXIETY Last Admin: 07/17/16 11:10 Dose: 25 mg Ibuprofen (Motrin Tab*) 400 mg PO Q6H PRN PRN Reason: PAIN Last Admin: 07/17/16 06:25 Dose: 400 mg Lamotrigine (Lamictal Tab(*)) 25 mg PO DAILY [facility] Last Admin: 07/17/16 08:33 Dose: Not Given Multi-Ingredient Liniment/Rub (Issac Kim*) 1 applic TOPICAL BID [facility] Last Admin: 07/17/16 08:33 Dose: Not Given Multivitamins (Theragran Tab*) 1 tab PO DAILY [facility] Last Admin: 07/17/16 08:33 Dose: Not Given Nicotine (Nicotine Inhaler*) 10 mg INH Q2H PRN PRN Reason: CRAVING Last Admin: 07/16/16 14:44 Dose: 10 mg Nicotine (Nicotine Patch 21 Mg/24 Hr*) 1 patch TRANSDERM Q24HR [facility] Last Admin: 07/17/16 08:10 Dose: 1 patch Nicotine Polacrilex (Nicotine Gum*) 2 mg PO Q2H PRN PRN Reason: CRAVING Last Admin: 07/07/16 09:31 Dose: 2 mg Olanzapine (Zyprexa Tab*) 5 mg PO DAILY PRN PRN Reason: AGITATION Last Admin: 07/16/16 14:43 Dose: 5 mg Olanzapine (Zyprexa Tab*) 20 mg PO BEDTIME [facility] Last Admin: 07/16/16 20:13 Dose: 20 mg Omeprazole (Prilosec Cap*) 20 mg PO DAILY@0600 [facility] Last Admin: 07/17/16 08:12 Dose: Not Given Ondansetron HCl (Zofran Odt Tab*) 4 mg PO TID PRN PRN Reason: NAUSEA Last Admin: 07/16/16 07:57 Dose: 4 mg Oxycodone HCl (Roxycodone Tab*) 5 mg PO Q6H PRN PRN Reason: abdominal pain Last Admin: 07/17/16 08:09 Dose: 5 mg Pharmacy Profile Note (Nicotine Patch Removal Note*) 1 note PATCH OFF 2100 [facility] Last Admin: 07/16/16 20:17 Dose: 1 note - Discharge Plan Discharge Plan: Inpatient Hospitalization
[2016-07-17] MEDS ORDERED: Magnesium CITRATE* 300 ML BTL PO PRN (14:04)
[2016-07-17] MEDS: Nicotine Inhaler* 10 MG AMP INH PRN (15:52)
[2016-07-17] MEDS: Nicotine Patch Removal NOTE PATCH OFF SCH (20:42)
[2016-07-17] MEDS: OLANzapine TAB* 10 MG PO SCH (21:51)
[2016-07-18] MEDS: Dicyclomine CAP* 10 MG PO PRN ×3 (06:29→15:39)
[2016-07-18] MEDS: Ibuprofen TAB* 400 MG PO PRN (06:30)
[2016-07-18] MEDS: oxyCODONE TAB* 5 MG TAB PO PRN ×3 (06:30→21:48)
[2016-07-18] MEDS: Docusate CAP* 100 MG PO PRN (06:30)
[2016-07-18] MEDS: Nicotine Inhaler* 10 MG AMP INH PRN ×2 (06:34→14:24)
[2016-07-18] MEDS: Nicotine PATCH 21 MG/24 HR* PATCH TRANSDERM SCH (08:09)
[2016-07-18] MEDS: hydrOXYzine HCL TAB* 25 MG PO PRN ×3 (08:09→23:50)
[2016-07-18] MEDS: Omeprazole CAP* 20 MG PO SCH (08:32)
[2016-07-18] MEDS: Vitamin THERAPEUTIC TAB PO SCH (08:40)
[2016-07-18] MEDS: lamoTRIgine TAB(*) 25 MG PO SCH (08:40)
[2016-07-18] MEDS: Analgesic BALM* 114 GM TOPICAL SCH ×2 (08:40→23:00)
[2016-07-18] MEDS: Acetaminophen TAB* 325 MG PO PRN (11:17)
[2016-07-18] MEDS: clonazePAM TAB(*) 0.5 MG PO PRN ×2 (11:57→23:00)
--- NOTE | 2016-07-18 16:38 | PN ---
Subjective - Subjective Service Type: 08708 Hosp care 15 min low complexity Subjective: The patient remains overtalkative but is focussed on reality-based topics and is very interested in d/c planning. She continues to refuse lamotrigine due to concerns of starting more than one new medication at once. She has bills to pay and arrangements to make related to retirement issues with her children. She denies SI or HI. Behavior on unit can still be disruptive at times. Objective - Appearance Appearance: Well Developed/Nourished Dysmorphic Features: No Hygiene: Normal Grooming: Well Kept - Behavior Psychomotor Activities: Normal Exhibits Abnormal Movement: No - Attitude and Relatedness Attitude and Relatedness: Cooperative Eye Contact: Good - Speech Quality: Pressured Latencies: Short Quantity: Copious - Mood Patient's Decription of Mood: "Fine" - Affect Observed Affect: Euphoric Affect Consistent with: Euphoria - Thought Process Patient's Thought Process: Tangential Thought Content: No Passive Wish, No Suicidal Planning, No Homicidal Ideation, No Paranoid Ideation - Sensorium Experiencing Hallucinations: No, Sensorium is Clear Type of Hallucinations: Visual: No, Auditory: No, Command: No - Level of Consciousness Level of Consciousness: Alert Orientation: Yes Intact, Yes Orientated to Time, Yes Orientated to Place, Yes Orientated to Person - Impulse Control Impulse Control: Tenuous - Insight and Judgement Insight and Judgement: Fair - Group Participation Particating in Group Activities: Yes - Medication Management Medication Management Adherence: Partial Assessment - Assessment Merits Inpatient Hospitalization: For Immediate Safety, For Stabilization Inpatient DSM-IV Dx: Bipolar Affective Disorder, MRE manic. rule out cannabis- induced mood disorder Clinical Impression: 36 y.o. , white female with a history of bipolar and borderline personality disorders who presented to the hospital with acute manic psychosis and intramarital conflict with her . Plan - Plan Treatment Plan: Name: IVÁN GUAN Birthdate: 1980 [id number] The patient has been improving on olanzapine 20mg PO qhs, which she appears to be tolerating well. She declines a hospitalist consult for constipation due to her preference to follow up shortly with outpatient PCP, a doctor Crepe at [facility]. Still symptomatic. Await med effect. Continued Medication Management: Start Medication Medications: Current Medications Acetaminophen (Tylenol Tab*) 650 mg PO Q4H PRN PRN Reason: PAIN or TEMP > 101 F Last Admin: 07/18/16 11:17 Dose: 650 mg Al Hydrox/Mg Hydrox/Simethicone (Maalox Plus*) 30 ml PO Q4H PRN PRN Reason: INDIGESTION Last Admin: 07/11/16 11:39 Dose: 30 ml Clonazepam (Klonopin Tab(*)) 0.5 mg PO TID PRN PRN Reason: ANXIETY Last Admin: 07/18/16 11:57 Dose: 0.5 mg Device (Nicotine Mouth Piece*) 1 each INH .[facility] Last Admin: 07/13/16 07:56 Dose: 1 each Dicyclomine HCl (Bentyl Cap*) 20 mg PO TID PRN PRN Reason: abdominal cramping Last Admin: 07/18/16 15:39 Dose: 20 mg Docusate Sodium (Colace Cap*) 100 mg PO DAILY PRN PRN Reason: CONSTIPATION Last Admin: 07/18/16 06:30 Dose: 100 mg Hydroxyzine HCl (Atarax Tab*) 25 mg PO QID PRN PRN Reason: ANXIETY Last Admin: 07/18/16 14:24 Dose: 25 mg Ibuprofen (Motrin Tab*) 400 mg PO Q6H PRN PRN Reason: PAIN Last Admin: 07/18/16 06:30 Dose: 400 mg Magnesium Citrate (Citrate Of Magnesia*) 300 ml PO DAILY PRN PRN Reason: CONSTIPATION Multi-Ingredient Liniment/Rub (Issac Kim*) 1 applic TOPICAL BID [facility] Last Admin: 07/18/16 08:40 Dose: Not Given Multivitamins (Theragran Tab*) 1 tab PO DAILY [facility] Last Admin: 07/18/16 08:40 Dose: Not Given Nicotine (Nicotine Inhaler*) 10 mg INH Q2H PRN PRN Reason: CRAVING Last Admin: 07/18/16 14:24 Dose: 10 mg Nicotine (Nicotine Patch 21 Mg/24 Hr*) 1 patch TRANSDERM Q24HR [facility] Last Admin: 07/18/16 08:09 Dose: 1 patch Nicotine Polacrilex (Nicotine Gum*) 2 mg PO Q2H PRN PRN Reason: CRAVING Last Admin: 07/07/16 09:31 Dose: 2 mg Olanzapine (Zyprexa Tab*) 5 mg PO DAILY PRN PRN Reason: AGITATION Last Admin: 07/16/16 14:43 Dose: 5 mg Olanzapine (Zyprexa Tab*) 20 mg PO BEDTIME [facility] Last Admin: 07/17/16 21:51 Dose: 20 mg Omeprazole (Prilosec Cap*) 20 mg PO DAILY@0600 [facility] Last Admin: 07/18/16 08:32 Dose: 20 mg Ondansetron HCl (Zofran Odt Tab*) 4 mg PO TID PRN PRN Reason: NAUSEA Last Admin: 07/16/16 07:57 Dose: 4 mg Oxycodone HCl (Roxycodone Tab*) 5 mg PO Q6H PRN PRN Reason: abdominal pain Last Admin: 07/18/16 15:37 Dose: 5 mg Pharmacy Profile Note (Nicotine Patch Removal Note*) 1 note PATCH OFF 2100 [facility] Last Admin: 07/17/16 20:42 Dose: Not Given - Discharge Plan Discharge Plan: Inpatient Hospitalization
[2016-07-18] MEDS: OLANzapine TAB* 5 MG PO PRN (19:25)
[2016-07-18] MEDS: OLANzapine TAB* 10 MG PO SCH (21:50)
[2016-07-18] MEDS: Nicotine Patch Removal NOTE PATCH OFF SCH (21:50)
[2016-07-19] MEDS: Omeprazole CAP* 20 MG PO SCH (06:00)
[2016-07-19] MEDS: Dicyclomine CAP* 10 MG PO PRN ×3 (06:20→21:07)
[2016-07-19] MEDS: oxyCODONE TAB* 5 MG TAB PO PRN ×3 (06:20→21:05)
[2016-07-19] MEDS: Ibuprofen TAB* 400 MG PO PRN (08:01)
[2016-07-19] MEDS: Vitamin THERAPEUTIC TAB PO SCH (08:01)
[2016-07-19] MEDS: Nicotine PATCH 21 MG/24 HR* PATCH TRANSDERM SCH (08:02)
[2016-07-19] MEDS: Docusate CAP* 100 MG PO PRN (08:02)
[2016-07-19] MEDS: hydrOXYzine HCL TAB* 25 MG PO PRN (08:59)
[2016-07-19] MEDS: clonazePAM TAB(*) 0.5 MG PO PRN ×2 (09:59→23:54)
[2016-07-19] MEDS: Analgesic BALM* 114 GM TOPICAL SCH ×2 (10:08→21:04)
--- NOTE | 2016-07-19 12:55 | PN ---
Subjective - Subjective Service Type: 58700 Hosp care 15 min low complexity Subjective: The patient remains somewhat hyperverbal but is appropriately focussed on pertinent subjects of a mundane, but important nature, such as paying bills and trying to figure out how she's going to regain custody of her children after she 's discharged. After discussing treatment options and granting some psychoeducation on the subject of mood stabilizers, she agrees to a trial of Depakote. The patient expresses her intent to comply fully with outpatient treatment at [facility]. She denies SI and HI. Objective - Appearance Appearance: Well Developed/Nourished Dysmorphic Features: No Hygiene: Normal Grooming: Well Kept - Behavior Psychomotor Activities: Normal Exhibits Abnormal Movement: No - Attitude and Relatedness Attitude and Relatedness: Cooperative Eye Contact: Good - Speech Quality: Unpressured Latencies: Short Quantity: Copious - Mood Patient's Decription of Mood: "Good" - Affect Observed Affect: Expansive Affect Consistent with: Euphoria - Thought Process Patient's Thought Process: Tangential Thought Content: No Passive Wish, No Suicidal Planning, No Homicidal Ideation, No Paranoid Ideation - Sensorium Experiencing Hallucinations: No, Sensorium is Clear Type of Hallucinations: Visual: No, Auditory: No, Command: No - Level of Consciousness Orientation: Yes Intact, Yes Orientated to Time, Yes Orientated to Place, Yes Orientated to Person - Impulse Control Impulse Control: Poor - Insight and Judgement Insight and Judgement: Impaired - Group Participation Particating in Group Activities: No - Medication Management Medication Management Adherence: Yes Assessment - Assessment Merits Inpatient Hospitalization: Consolidate Improvements, Pending Safe DC Plan Inpatient DSM-IV Dx: Bipolar Affective Disorder, MRE manic. rule out cannabis- induced mood disorder Clinical Impression: 36 y.o. , white female with a history of bipolar and borderline personality disorders who presented to the hospital with acute manic psychosis and intramarital conflict with her . Plan - Plan Treatment Plan: Name: IVÁN GUAN Birthdate: 1980 [id number] The patient has been improving on olanzapine 20mg PO qhs, which she appears to be tolerating well. Will add Depakote 500mg PO qday for mood stabilization. Consider d/c tomorrow (07/20) if still improving. Continued Medication Management: Start Medication Medications: Current Medications Acetaminophen (Tylenol Tab*) 650 mg PO Q4H PRN PRN Reason: PAIN or TEMP > 101 F Last Admin: 07/18/16 11:17 Dose: 650 mg Al Hydrox/Mg Hydrox/Simethicone (Maalox Plus*) 30 ml PO Q4H PRN PRN Reason: INDIGESTION Last Admin: 07/11/16 11:39 Dose: 30 ml Clonazepam (Klonopin Tab(*)) 0.5 mg PO TID PRN PRN Reason: ANXIETY Last Admin: 07/19/16 09:59 Dose: 0.5 mg Device (Nicotine Mouth Piece*) 1 each INH .[facility] Last Admin: 07/13/16 07:56 Dose: 1 each Dicyclomine HCl (Bentyl Cap*) 20 mg PO TID PRN PRN Reason: abdominal cramping Last Admin: 07/19/16 06:20 Dose: 20 mg Divalproex Sodium (Depakote Dr Tab(*)) 500 mg PO DAILY [facility] Docusate Sodium (Colace Cap*) 100 mg PO DAILY PRN PRN Reason: CONSTIPATION Last Admin: 07/19/16 08:02 Dose: 100 mg Hydroxyzine HCl (Atarax Tab*) 25 mg PO QID PRN PRN Reason: ANXIETY Last Admin: 07/19/16 08:59 Dose: 25 mg Ibuprofen (Motrin Tab*) 400 mg PO Q6H PRN PRN Reason: PAIN Last Admin: 07/19/16 08:01 Dose: 400 mg Magnesium Citrate (Citrate Of Magnesia*) 300 ml PO DAILY PRN PRN Reason: CONSTIPATION Multi-Ingredient Liniment/Rub (Issac Kim*) 1 applic TOPICAL BID [facility] Last Admin: 07/19/16 10:08 Dose: Not Given Multivitamins (Theragran Tab*) 1 tab PO DAILY [facility] Last Admin: 07/19/16 08:01 Dose: 1 tab Nicotine (Nicotine Inhaler*) 10 mg INH Q2H PRN PRN Reason: CRAVING Last Admin: 07/18/16 14:24 Dose: 10 mg Nicotine (Nicotine Patch 21 Mg/24 Hr*) 1 patch TRANSDERM Q24HR [facility] Last Admin: 07/19/16 08:02 Dose: 1 patch Nicotine Polacrilex (Nicotine Gum*) 2 mg PO Q2H PRN PRN Reason: CRAVING Last Admin: 07/07/16 09:31 Dose: 2 mg Olanzapine (Zyprexa Tab*) 5 mg PO DAILY PRN PRN Reason: AGITATION Last Admin: 07/18/16 19:25 Dose: 5 mg Olanzapine (Zyprexa Tab*) 20 mg PO BEDTIME [facility] Last Admin: 07/18/16 21:50 Dose: 20 mg Omeprazole (Prilosec Cap*) 20 mg PO DAILY@0600 [facility] Last Admin: 07/19/16 06:00 Dose: 20 mg Ondansetron HCl (Zofran Odt Tab*) 4 mg PO TID PRN PRN Reason: NAUSEA Last Admin: 07/16/16 07:57 Dose: 4 mg Oxycodone HCl (Roxycodone Tab*) 5 mg PO Q6H PRN PRN Reason: abdominal pain Last Admin: 07/19/16 06:20 Dose: 5 mg Pharmacy Profile Note (Nicotine Patch Removal Note*) 1 note PATCH OFF 2100 [facility] Last Admin: 07/18/16 21:50 Dose: Not Given - Discharge Plan Discharge Plan: Outpatient Follow Up Outpatient Program: [facility]
--- NOTE | 2016-07-19 13:01 | PN ---
MHU: Group Therapy Note - Service Type Service Type: 61478 Group Psychotherapy - Cognitive Behavioral Group Therapy ( CBT):Patient was attentive and participatory in CBT programming this morning, and remained in good behavioral control. Patient expressed positive insights regarding relevant treatment interventions and goals.
[2016-07-19] MEDS: Nicotine Inhaler* 10 MG AMP INH PRN (13:16)
[2016-07-19] MEDS: Acetaminophen TAB* 325 MG PO PRN (13:17)
[2016-07-19] MEDS: Divalproex DR TAB(*) 500 MG PO SCH (13:42)
[2016-07-19] MEDS: OLANzapine TAB* 10 MG PO SCH (21:06)
[2016-07-19] MEDS: Nicotine Patch Removal NOTE PATCH OFF SCH (21:08)
[2016-07-20] MEDS: Omeprazole CAP* 20 MG PO SCH (05:49)
[2016-07-20] MEDS: oxyCODONE TAB* 5 MG TAB PO PRN (05:52)
[2016-07-20] MEDS: Acetaminophen TAB* 325 MG PO PRN (05:52)
[2016-07-20 07:56] VITALS: BP 139/99
[2016-07-20] MEDS: Analgesic BALM* 114 GM TOPICAL SCH (09:23)
[2016-07-20] MEDS: Nicotine PATCH 21 MG/24 HR* PATCH TRANSDERM SCH (09:23)
[2016-07-20] MEDS: Vitamin THERAPEUTIC TAB PO SCH (09:24)
[2016-07-20] MEDS: Divalproex DR TAB(*) 500 MG PO SCH (09:25)
[2016-07-20] MEDS: hydrOXYzine HCL TAB* 25 MG PO PRN (09:27)
[2016-07-20] MEDS: Ibuprofen TAB* 400 MG PO PRN (09:31)
[2016-07-20] MEDS: Dicyclomine CAP* 10 MG PO PRN (09:32)
--- NOTE | 2016-07-20 21:48 | DS ---
DISCHARGE SUMMARY: DATE OF ADMISSION: 07/02/16 DATE OF DISCHARGE: 07/20/16 DISCHARGE DIAGNOSES: Trego I: Bipolar disorder, most recent episode manic, severe without psychotic features. Trego II: Borderline personality disorder. Trego III: Endometriosis, left-sided ovarian cyst, irritable bowel syndrome. Trego IV: Severe primary support stressors. Trego V: At the time of admission was 30 and at the time of discharge is 60. CONDITION AT THE TIME OF DISCHARGE: Stable. The patient is calm and cooperative. She is expressive and future oriented. Specifically, she is making plans to move out of the house she shares with her and get her own place. She is also talking appropriately about fighting her for custody of their 3 children. She is tolerating her medications quite well and she has been denying suicidal or homicidal ideation throughout this hospitalization being safe on all checks. At this time, she is requesting followup treatment in a less restrictive setting. We have spoken with her father, who is in support of the discharge plan. MENTAL STATUS EXAM: The patient is a middle aged white female, who is clean, well- groomed. Speech has a normal rate, tone and volume. Mood is euthymic with a full affect. Thought process is linear and goal directed. Thought content is significant for her desire to leave the hospital. She denies suicidal or homicidal ideations. She denies auditory or visual hallucinations. Insight and judgement are fair given his willingness to follow up with outpatient treatment. Cognitively, she is awake and alert with what would appear to be an average intellect. DISCHARGE INSTRUCTIONS: To the patient are as follows: A. Medications: 1. She is currently taking dicyclomine 20 mg p.o. t.i.d. as a p.r.n. for stomach cramps. 2. Depakote 500 mg p.o. daily. 3. Docusate 100 mg p.o. daily. 4. Magnesium citrate 300 mL p.o. daily as a p.r.n. for constipation. 5. Olanzapine 20 mg p.o. q. bedtime. 6. Omeprazole 20 mg p.o. daily. 7. Zofran 4 mg p.o. t.i.d. as a p.r.n. for nausea. 8. Klonopin 0.5 mg p.o. t.i.d. as a p.r.n. for anxiety. 9. Oxycodone 5 mg p.o. q.6h. as a p.r.n. for pain. B. Diet is regular. C. Activities: As tolerated. The patient is strongly encouraged to abstain from tobacco products. However, she is declining the offer of continued nicotine replacement therapy indicating her current preference to continue smoking cigarettes. There are no diagnostic studies pending at the time of discharge. D. Followup care: The patient will follow up at the [facility] within 1 week of discharge where her psychotherapist is named Rick and her psychiatric provider is nurse practitioner, Wilma Grayson. Medical followup will be at the [facility] here in [place] with her family care provider, Dr. Poe. HOSPITAL COURSE: Part A: Reason for admission: The patient is a 36-year-old white female with a history of both bipolar disorder and borderline personality disorder who arrived at our clinic via ambulance after an episode in which she became upset at her and was displaying clear signs of bipolar zenaida. Apparently prior to admission, her with whom she has not been getting along apparently took her children out of the school and she had been searching for them. The patient informed us in the emergency room that she had driven all over until she ran out of gas. She stated that when she finally did talk to her he informed her that he was keeping the children away from her until she went for a mental health evaluation. She did come for that evaluation at the [facility] as a way of placating him and had been discharged early in the morning. She states that she went to call the police to complain about her missing children, but her phone . She also indicated that she was aware that a child protective services investigation had been ordered by the school after her pulled them out of class for no reason. She ended up coming back to the hospital in a state of agitation telling us that her has been going crazy ever since the of his brother several weeks ago. She made bizarre statements to the effect that her had kept a piece of his brother's skin inside a post- it note and was preserving this in their freezer. We were able to reach her family who indicated that she had been manic for several weeks and they did not feel that her children were safe in her presence. Part B: Psychiatric treatment rendered: The patient was admitted to the adult behavioral health unit where she was placed on q. 30 minute checks for her own safety. All of her medications were resumed, but she was additionally placed on an antipsychotic medication olanzapine, which was titrated to 20 mg p.o. nightly and she tolerated that well. Despite being on a therapeutic dose of an antipsychotic, she continued to demonstrate core manic features such as distractibility, grandiosity, flight of ideas, indiscreet hostile behavior and loud hyperverbal speech. She was initially worked with by Dr. Richi Bell, but then transferred to the service of Dr. Lacho De La Torre. Both of those clinicians tried to convince her to consider mood stabilizer therapy; however, she refused. On the 17 of July, she was transferred to the care of Dr. Jasiel Naranjo. At that time, she continued to refuse mood stabilizer medications giving the rationale that she had already started Zyprexa and she did not want to start 2 medications at the same time. The patient received psychoeducation about the rationale behind mood stabilizer therapy and eventually she did agree to a trial of Depakote 500 mg p.o. daily which she tolerated well. Her affect started improving and she became less hostile, less verbally aggressive and we were able to convert her from involuntary to voluntary status as the patient was willing to sign in and recognize that she needed mental health care. Her father Torres came in for family meeting and he was in support of the treatment plan. At this time, she appears to be much more euthymic, much more in control. She is future oriented and thinking about appropriate subjects such as how she is going to care for her children now that her marriage is breaking up. She has not demonstrated any physical violence or any attempts to harm herself throughout her hospitalization and we feel that she is appropriate for discharge to less restrictive setting at this time. [id number]/[facility] #: [id number] [facility] CENTERMary
== END 2016-07-20 11:59 | disposition home or self-care (01) | DRG 885 ==
LOC: ED 17:59 → BSU 07-02 01:45
PROVIDERS: ADMIT Psychiatry & Neurology Psychiatry; ATTEND Psychiatry & Neurology Psychiatry
PROC: GZHZZZZ Group Psychotherapy (ICD-10-PCS; principal; 2016-07-05)
DX: F31.13 Bipolar disorder, current episode manic without psychotic features, severe (principal); F50.9 Eating disorder, unspecified; N80.9 Endometriosis, unspecified; N83.202 Unspecified ovarian cyst, left side; F41.0 Panic disorder [episodic paroxysmal anxiety]; F17.210 Nicotine dependence, cigarettes, uncomplicated; R40.2412 Glasgow coma scale score 13-15, at arrival to emergency department; F60.3 Borderline personality disorder; K58.9 Irritable bowel syndrome, unspecified; F12.90 Cannabis use, unspecified, uncomplicated; Z88.6 Allergy status to analgesic agent; Z88.8 Allergy status to other drugs, medicaments and biological substances; Z82.3 Family history of stroke; Z83.3 Family history of diabetes mellitus; Z72.89 Other problems related to lifestyle
CPT/HCPCS: 36415; 74000; 80053; 80307; 80320; 80329; 81003; 81015; 84443; 84702; 85025; 87086; 90834; 90853; 99222; 99231; 99232; 99233; 99238; 99284; A9270-GY; G0480; J1200; J1630; J2060

== ENCOUNTER 2017-09-05 11:41 | Emergency (ER) | payer MEDICARE, MEDICAID ==
--- NOTE | 2017-09-05 12:24 | ED ---
Headache - History Of Current Complaint Chief Complaint: EDDentalPain Stated Complaint: DENTAL PAIN Time Seen by Provider: 09/05/17 12:00 Hx Obtained From: Patient Hx Last Menstrual Period: 05/14/12 Onset/Duration: Gradual Onset, Started days ago, Still Present, Worse Since - novocaine wore off Initially Headache Was: Moderate Currently Pain Is: Moderate Timing: Constant, Days Location of Headache: Other: - left lower 1st molar Aggravating Factor: Nothing Allevating Factors: Medication - percocet, ibuprofen, clove oil, peppermint oil , salt rinses Related History: Recent Trauma: - 08/28 filling at [facility] - Allergies/Home Medications Allergies/Adverse Reactions: Allergies Allergy/AdvReac Type Severity Reaction Status Date / Time No Known Allergies Allergy Verified 07/03/16 12:06 PMH/Surg Hx/FS Hx/Imm Hx Endocrine/Hematology History: Denies: Hx Diabetes, Hx Systemic Lupus Erythematosus, Hx Thyroid Disease Cardiovascular History: Denies: Hx Hypertension Respiratory History: Denies: Hx Asthma, Hx Chronic Obstructive Pulmonary Disease (COPD) GI History: Reports: Hx Cirrhosis - says may have non ETOH related?, Hx Diverticulosis - says may have? Denies: Hx Ulcer History: Denies: Hx Renal Disease Musculoskeletal History: Denies: Hx Rheumatoid Arthritis Sensory History: Reports: Hx Contacts or Glasses Denies: Hx Hearing Aid Opthamlomology History: Reports: Hx Contacts or Glasses Psychiatric History: Reports: Hx Anxiety, Hx Eating Disorder, Hx Depression, Hx Panic Disorder, Hx Inpatient Treatment, Hx Community Mental Health Tx, Hx Bipolar Disorder, Hx Substance Abuse, Other Psychiatric Issues/Disorders Denies: Hx Attention Deficit Hyperactivity Disorder, Hx Post Traumatic Stress Disorder, Hx Schizophrenia, Hx Suicide Attempt, Hx of Violent Episodes Against Others - Cancer History Cancer Type, Location and Year: patient gives pressured, 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 Hx Chemotherapy: No Hx Radiation Therapy: No Hx Palliative Cancer Treatment: No - Surgical History Surgery Procedure, Year, and Place: 2000 - RIGHT Lymph nodes removed to biopsy thought she had cancer - she didn't. 2010- C section Infectious Disease History: No Infectious Disease History: Denies: Hx Clostridium Difficile, Hx Hepatitis, Hx Human Immunodeficiency Virus (HIV), Hx of Known/Suspected MRSA, Hx Shingles, Hx Tuberculosis, Hx Known/ Suspected VRE, Hx Known/Suspected VRSA, History Other Infectious Disease, Traveled Outside the [place] in Last 30 Days - Family History Known Family History: Positive: Diabetes - Father , Other - CVA mother - Social History Alcohol Use: Rare Alcohol Amount: 1-2 drinks, 3-4 times per year Hx Substance Use: Yes Substance Use Type: Reports: Marijuana Hx Tobacco Use: Yes Smoking Status (MU): Heavy Every Day Tobacco Smoker Type: Cigarettes Have You Smoked in the Last Year: Yes Review of Systems Negative: Fever Positive: Dental Pain Positive: no symptoms reported All Other Systems Reviewed And Are Negative: Yes Physical Exam - Summary Physical Exam Summary: Appearance: Well appearing, no pain distress Skin: warm, dry, reflects adequate perfusion Head/face: dental extracts of multiple teeth, including left lower 2nd and 3rd molars. No surrounding gingival erythema or abscess. Eyes: EOMI, SHERRI ENT: normal Neck: supple, non-tender Respiratory: CTA, breath sounds present Cardiovascular: RRR, pulses symmetrical Abdomen: non-tender, soft Bowel Sounds: present Musculoskeletal: normal, strength/ROM intact Neuro: normal, sensory motor intact, A&Ox3 Triage Information Reviewed: Yes Vital Signs On Initial Exam: Initial Vitals Temp Pulse Resp BP Pulse Ox 98.8 F 101 20 129/96 99 09/05/17 11:47 09/05/17 11:47 09/05/17 11:47 09/05/17 11:47 09/05/17 11:47 Vital Signs Reviewed: Yes Procedures - Procedure Summary Procedure Summary: Dental block: Reason: Left-sided first molar pain Description: I performed an inferior alveolar block in the left jaw as well as supraperiosteal injection at the first lower molar on the left side. This is accomplished with a total of 5 cc of 0.5% bupivacaine. She tolerated this well with improvement of discomfort. She spirits no complication. Diagnostics - Vital Signs Vital Signs Temp Pulse Resp BP Pulse Ox 09/05/17 11:47 98.8 F 101 20 129/96 99 - Laboratory Lab Statement: Any lab studies that have been ordered have been reviewed, and results considered in the medical decision making process. Re-Evaluation - Re-Evaluation First Eval Re-Evaluation Time: 12:30 Change: Improved Comment: pain for 10/15 to 05/15. Headache Course/Dx - Course Course Of Treatment: Patient with dental pain after procedure. She was given blocks in the area with some improvement of her discomfort. She is already on NSAID, Percocet. She was started on clindamycin and will follow-up with her dentist. - Diagnoses Provider Diagnoses: Pain, dental Discharge - Sign-Out/Discharge Documenting (check all that apply): Patient Departure - discharge - Discharge Plan Condition: Good Disposition: HOME Prescriptions: Clindamycin Cap(NF) [Clindamycin Cap 300 mg Cap(NF)] 300 mg PO TID #21 cap Patient Education Materials: Toothache (ED) Referrals: Becky Peo MD [Primary Care Provider] - Additional Instructions: Call [facility] today for an appointment. Continue ibuprofen and prescribed pain medication. Return if worse, fever, new symptoms or other concerns. - Billing Disposition and Condition Condition: GOOD Disposition: Home
[2017-09-05 13:25] VITALS: BP 129/88
== END 2017-09-05 13:23 | disposition home or self-care (01) ==
LOC: ED 11:41
DX: K08.89 Other specified disorders of teeth and supporting structures (principal); F17.210 Nicotine dependence, cigarettes, uncomplicated
CPT/HCPCS: 96372; 99282

== ENCOUNTER 2017-09-09 13:02 | Emergency (ER) | payer MEDICARE, MEDICAID ==
[2017-09-09 15:08] VITALS: BP 145/87
--- NOTE | 2017-09-09 18:40 | ED ---
Progress - Progress Note Progress Note: I supervised the care of the physician assistant federal public defender and I performed a history and physical on this patient. I also performed the procedure on this patient. History: Patient with persistent left lower first molar discomfort. I saw her in the ER for similar one day prior and she had success from a dental block. She is maintained on clindamycin. She recently had dental procedure by [facility]. Physical exam: Patient is uncomfortable appearing but her gingiva is noninflamed. There is no evidence of trauma to the tooth. There is filling. Plan: I performed dental block again on her with relief of pain. She is to follow-up with dental in the morning. She is still on antibiotics. Procedure---- Dental block done for pain: Description: The patient was verbally consented. An inferior [place] dental block is performed as well as a kelly-ostial block performed at the affected tooth with a total of 2 cc of 0.5% bupivacaine mixed with 1 cc of 2% lidocaine with epinephrine. The patient had near immediate relief of discomfort. She tolerated this well without complication. Course/Dx - Diagnoses Provider Diagnoses: Pain, dental Discharge - Sign-Out/Discharge Documenting (check all that apply): Patient Departure - Discharge Plan Condition: Stable Disposition: HOME Referrals: Becky Poe MD [Primary Care Provider] - Additional Instructions: I advise increasing your pain medication to 2 tabs 3 times daily as opposed to 1 tab 3 times daily, you may also take 1 tab up to every 4 hours as an alternative. Do not take Tylenol while taking this medication [place] Ibuprofen 600 mg 3 times daily Continue with Anbesol and cloves It is very important to follow-up with your dentist JEANETTE - Billing Disposition and Condition Condition: STABLE Disposition: Home
--- NOTE | 2017-09-10 05:53 | ED ---
Throat Pain/Nasal Congestion - HPI Summary HPI Summary: Patient is a 37-year-old female presenting to the ED with complaint of left sided lower dental pain at tooth #20. She was seen here a few days ago and a dental block was performed with good effect. She endorses getting the same tooth filled 2 weeks ago and has been experiencing worsening pain since that time. She has been on clindamycin and remains on this medication at this time. She has taken ibuprofen, Tylenol, [place], Anbesol without relief. She has taken at home hydrocodone which was prescribed for her endometriosis also without relief. She is tearful on exam. Vital signs are stable. She denies any recent fevers, sweats, chills. - History of Current Complaint Chief Complaint: EDDentalPain Time Seen by Provider: 09/09/17 14:13 Hx Obtained From: Patient Onset/Duration: Gradual Onset Severity: Severe Associated Signs And Symptoms: Positive: Negative - Epiglottits Risk Factors Epiglottis Risk Factors: Negative - Allergies/Home Medications Allergies/Adverse Reactions: Allergies Allergy/AdvReac Type Severity Reaction Status Date / Time No Known Allergies Allergy Verified 09/09/17 14:18 Home Medications: Home Medications BuPROPion XL* [Bupropion XL*] 300 mg PO DAILY 09/09/17 [History Confirmed ] Divalproex DR TAB(*) [Depakote DR TAB(*)] 1,000 mg PO DAILY 09/09/17 [History Confirmed 09/09/17] clonazePAM TAB(*) [KlonoPIN TAB(*)] 1 mg PO TID PRN 09/09/17 [History Confirmed 09/09/17] PMH/Surg Hx/FS Hx/Imm Hx Previously Healthy: Yes Endocrine/Hematology History: Denies: Hx Diabetes, Hx Systemic Lupus Erythematosus, Hx Thyroid Disease Cardiovascular History: Denies: Hx Hypertension Respiratory History: Denies: Hx Asthma, Hx Chronic Obstructive Pulmonary Disease (COPD) GI History: Reports: Hx Cirrhosis - says may have non ETOH related?, Hx Diverticulosis - says may have? Denies: Hx Ulcer History: Denies: Hx Renal Disease Musculoskeletal History: Denies: Hx Rheumatoid Arthritis Sensory History: Reports: Hx Contacts or Glasses Denies: Hx Hearing Aid Opthamlomology History: Reports: Hx Contacts or Glasses Psychiatric History: Reports: Hx Anxiety, Hx Eating Disorder, Hx Depression, Hx Panic Disorder, Hx Inpatient Treatment, Hx Community Mental Health Tx, Hx Bipolar Disorder, Hx Substance Abuse, Other Psychiatric Issues/Disorders Denies: Hx Attention Deficit Hyperactivity Disorder, Hx Post Traumatic Stress Disorder, Hx Schizophrenia, Hx Suicide Attempt, Hx of Violent Episodes Against Others - Cancer History Cancer Type, Location and Year: patient gives pressured, 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 Hx Chemotherapy: No Hx Radiation Therapy: No Hx Palliative Cancer Treatment: No - Surgical History Surgery Procedure, Year, and Place: 2000 - RIGHT Lymph nodes removed to biopsy thought she had cancer - she didn't. 2010- C section - Immunization History Hx Pertussis Vaccination: No Immunizations Up to Date: Unable to Obtain/Confirm Infectious Disease History: No Infectious Disease History: Denies: Hx Clostridium Difficile, Hx Hepatitis, Hx Human Immunodeficiency Virus (HIV), Hx of Known/Suspected MRSA, Hx Shingles, Hx Tuberculosis, Hx Known/ Suspected VRE, Hx Known/Suspected VRSA, History Other Infectious Disease, Traveled Outside the [place] in Last 30 Days - Family History Known Family History: Positive: Diabetes - Father , Other - CVA mother - Social History Occupation: Employed Full-time Lives: With Family Alcohol Use: Occasionally Alcohol Amount: 1-2 drinks, 3-4 times per year Hx Substance Use: Yes Substance Use Type: Reports: None Hx Tobacco Use: Yes Smoking Status (MU): Heavy Every Day Tobacco Smoker Type: Cigarettes Have You Smoked in the Last Year: Yes Review of Systems Constitutional: Negative Negative: Fever, Chills, Fatigue, Skin Diaphoresis Positive: Dental Pain Negative: Shortness Of Breath, Cough Genitourinary: Negative Positive: no symptoms reported, see HPI Negative: Arthralgia, Myalgia Skin: Negative Neurological: Negative All Other Systems Reviewed And Are Negative: Yes Physical Exam Triage Information Reviewed: Yes Vital Signs On Initial Exam: Initial Vitals Temp Pulse Resp BP Pulse Ox 98.9 F 84 14 154/101 98 09/09/17 13:05 09/09/17 13:05 09/09/17 13:05 09/09/17 13:05 09/09/17 13:05 Vital Signs Reviewed: Yes Appearance: Positive: Well-Appearing, Well-Nourished Skin: Positive: Warm, Skin Color Reflects Adequate Perfusion Head/Face: Positive: Normal Head/Face Inspection Eyes: Positive: EOMI, SHERRI, Conjunctiva Clear Dental: Positive: Gross Decay/Caries @ - throughout, Dental Fracture @ - throughout, Other - No evidence of inflamed gingiva or abscess Respiratory/Lung Sounds: Positive: Clear to Auscultation, Breath Sounds Present Cardiovascular: Positive: RRR, Pulses are Symmetrical in both Upper and Lower Extremities Musculoskeletal: Positive: Strength/ROM Intact Neurological: Positive: Sensory/Motor Intact, Alert, Oriented to Person Place, Time, Speech Normal Psychiatric: Positive: Normal, Affect/Mood Appropriate AVPU Assessment: Alert Diagnostics - Vital Signs Vital Signs Temp Pulse Resp BP Pulse Ox 09/09/17 15:07 97.7 F 76 16 145/87 99 09/09/17 13:05 98.9 F 84 14 154/101 98 - Laboratory Lab Statement: Any lab studies that have been ordered have been reviewed, and results considered in the medical decision making process. EENT Course/Dx - Course Course Of Treatment: Course of treatment, the patient is evaluated for left- sided lower dental pain which has been present and worsening 2 weeks. Digital block was performed upon last visit and she is requesting this again. Dr. Comer performed inferior alveolar block with good effect. I have not prescribed her more pain management she has pain medications at home, however I have advised she increase her pain control to hydrocodone 10 mg 3 times daily as opposed to hydrocodone 5 mg 3 times daily. - Differential Diagnoses Differential Diagnoses: Dental Abscess, Dental Caries, Mandibular/Maxillary Trauma, Odontogenic Pain, Pain of Unknown Etiology - Diagnoses Provider Diagnoses: Pain, dental Discharge - Sign-Out/Discharge Documenting (check all that apply): Patient Departure - Discharge Plan Condition: Stable Disposition: HOME Referrals: Becky Poe MD [Primary Care Provider] - Additional Instructions: I advise increasing your pain medication to 2 tabs 3 times daily as opposed to 1 tab 3 times daily, you may also take 1 tab up to every 4 hours as an alternative. Do not take Tylenol while taking this medication [place] Ibuprofen 600 mg 3 times daily Continue with Anbesol and cloves It is very important to follow-up with your dentist JEANETTE - Billing Disposition and Condition Condition: STABLE Disposition: Home
== END 2017-09-09 15:07 | disposition home or self-care (01) ==
LOC: ED 13:02
DX: K02.9 Dental caries, unspecified (principal); F17.210 Nicotine dependence, cigarettes, uncomplicated
CPT/HCPCS: 99282

== ENCOUNTER 2017-09-11 20:04 | Emergency (ER) | payer MEDICARE, MEDICAID ==
[2017-09-11] MEDS ORDERED: Ketorolac INJ* 60 MG/2 ML VIAL IM ONE (22:02)
--- NOTE | 2017-09-11 22:07 | ED ---
Throat Pain/Nasal Congestion - HPI Summary HPI Summary: Complains of left upper toothache x 1 week. Seen here on 09/05, 09/09, for same. Appt with dentist tomorrow. Pain not controlled by percocet 10mg PO TID. Looking for nerve block. Last Percocet 10 mg at 5:30 PM today. Denies fever, cough, sore throat, CP, SOB, N/V/D, abdominal pain, change in urinary BM. Denies purulent discharge from her mouth. Medical history is none. - History of Current Complaint Chief Complaint: EDDentalPain Time Seen by Provider: 09/11/17 21:39 Hx Obtained From: Patient Onset/Duration: Gradual Onset Severity: Severe Associated Signs And Symptoms: Positive: Negative Cough: None - Allergies/Home Medications Allergies/Adverse Reactions: Allergies Allergy/AdvReac Type Severity Reaction Status Date / Time No Known Allergies Allergy Verified 09/11/17 22:21 PMH/Surg Hx/FS Hx/Imm Hx Endocrine/Hematology History: Denies: Hx Anticoagulant Therapy, Hx Diabetes, Hx Systemic Lupus Erythematosus, Hx Thyroid Disease Cardiovascular History: Denies: Hx Hypertension Respiratory History: Denies: Hx Asthma, Hx Chronic Obstructive Pulmonary Disease (COPD) GI History: Reports: Hx Cirrhosis - says may have non ETOH related?, Hx Diverticulosis - says may have? Denies: Hx Ulcer History: Denies: Hx Renal Disease Musculoskeletal History: Denies: Hx Rheumatoid Arthritis Sensory History: Reports: Hx Contacts or Glasses Denies: Hx Hearing Aid Opthamlomology History: Reports: Hx Contacts or Glasses Psychiatric History: Reports: Hx Anxiety, Hx Eating Disorder, Hx Depression, Hx Panic Disorder, Hx Inpatient Treatment, Hx Community Mental Health Tx, Hx Bipolar Disorder, Hx Substance Abuse, Other Psychiatric Issues/Disorders Denies: Hx Attention Deficit Hyperactivity Disorder, Hx Post Traumatic Stress Disorder, Hx Schizophrenia, Hx Suicide Attempt, Hx of Violent Episodes Against Others - Cancer History Cancer Type, Location and Year: patient gives pressured, 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 Hx Chemotherapy: No Hx Radiation Therapy: No Hx Palliative Cancer Treatment: No - Surgical History Surgery Procedure, Year, and Place: 2000 - RIGHT Lymph nodes removed to biopsy thought she had cancer - she didn't. 2010- C section Infectious Disease History: No Infectious Disease History: Denies: Hx Clostridium Difficile, Hx Hepatitis, Hx Human Immunodeficiency Virus (HIV), Hx of Known/Suspected MRSA, Hx Shingles, Hx Tuberculosis, Hx Known/ Suspected VRE, Hx Known/Suspected VRSA, History Other Infectious Disease, Traveled Outside the [place] in Last 30 Days - Family History Known Family History: Positive: Diabetes - Father , Other - CVA mother - Social History Alcohol Use: Occasionally Alcohol Amount: 1-2 drinks, 3-4 times per year Hx Substance Use: Yes Substance Use Type: Reports: None Hx Tobacco Use: Yes Smoking Status (MU): Heavy Every Day Tobacco Smoker Type: Cigarettes Have You Smoked in the Last Year: Yes Review of Systems Constitutional: Negative Eyes: Negative Positive: Dental Pain Cardiovascular: Negative Respiratory: Negative Gastrointestinal: Negative Genitourinary: Negative Musculoskeletal: Negative Skin: Negative Neurological: Negative Psychological: Normal All Other Systems Reviewed And Are Negative: Yes Physical Exam - Summary Physical Exam Summary: No indication of oral lesions, swelling of gums, dental abscess. Oropharynx normal Triage Information Reviewed: Yes Vital Signs On Initial Exam: Initial Vitals Temp Pulse Resp BP Pulse Ox 98.4 F 90 18 136/94 97 09/11/17 20:07 09/11/17 20:07 09/11/17 20:07 09/11/17 20:07 09/11/17 20:07 Vital Signs Reviewed: Yes Appearance: Positive: Well-Appearing Skin: Positive: Warm Head/Face: Positive: Normal Head/Face Inspection Eyes: Positive: Normal ENT: Positive: Normal ENT inspection Dental: Positive: Gross Decay/Caries @ Neck: Positive: Supple Respiratory/Lung Sounds: Positive: Clear to Auscultation Cardiovascular: Positive: Normal Abdomen Description: Positive: Nontender Musculoskeletal: Positive: Normal Neurological: Positive: Normal Psychiatric: Positive: Normal AVPU Assessment: Alert - [place] Coma Scale Best Eye Response: 4 - Spontaneous Best Motor Response: 6 - Obeys Commands Best Verbal Response: 5 - Oriented Coma Scale Total: 15 Diagnostics - Vital Signs Vital Signs Temp Pulse Resp BP Pulse Ox 09/11/17 20:07 98.4 F 90 18 136/94 97 - Laboratory Lab Statement: Any lab studies that have been ordered have been reviewed, and results considered in the medical decision making process. EENT Course/Dx - Course Course Of Treatment: Complains of left upper toothache x 1 week. Seen here on , 09/09, for same. Appt with dentist tomorrow. Pain not controlled by percocet 10mg PO TID. Looking for nerve block. Last Percocet 10 mg at 5:30 PM today. Denies fever, cough, sore throat, CP, SOB, N/V/D, abdominal pain, change in urinary BM. Denies purulent discharge from her mouth. Medical history is none. Physical exam:No indication of oral lesions, swelling of gums, dental abscess. Oropharynx normal. Patient given shot of Toradol. dentist appointment at 10:45 AM tomorrow - Diagnoses Provider Diagnoses: Toothache Discharge - Sign-Out/Discharge Documenting (check all that apply): Patient Departure - Discharge Plan Condition: Stable Disposition: HOME Patient Education Materials: Toothache (ED) Referrals: Becky Poe MD [Primary Care Provider] - Additional Instructions: You may take another Percocet 10 mg by mouth at midnight tonight. Follow-up with dentist at her appointment tomorrow morning. Return to the ED for any new or worsening symptoms - Billing Disposition and Condition Condition: STABLE Disposition: Home
[2017-09-11 22:21] VITALS: BP 135/98
== END 2017-09-11 22:16 | disposition home or self-care (01) ==
LOC: ED 20:04
DX: K08.89 Other specified disorders of teeth and supporting structures (principal); Z72.0 Tobacco use
CPT/HCPCS: 96372; 99282; J1885

== ENCOUNTER 2018-11-30 04:44 | Emergency (ER) | payer MEDICARE, MEDICAID ==
--- OUTSIDE RECORDS SUMMARY | 2018-11-30 04:58 | XMS REPORT | Summary of Care ---
:1980 Author Organization [facility] Address [address] [place] [address] Care Team Providers Name Role Phone Becky Poe MD Primary Care Provider Reason for Visit Reason Comments Joint Swelling bilateral ankle swelling since around 09/02/18 ( grass roots) ( also pt states she was Dx'd with strep 10/13/18 and is on cefdinir) Encounter Details Date Type Department Care Team Description 10/15/2018 Office Visit [place] Yakelin Han, Edema of both ankles (Primary Dx); Practice PA-C Spotting; [address] [place] [address] [phone] Allergies Active Allergy Reactions Severity Noted Date Comments Varenicline Tartrate [employer]WORK[employer] Reaction 04/08/2012 zenaida Hydrocodone GI Reaction 10/04/2012 Stomach upset Serotonin Reuptake Inhibitors WIREWORKER SUPERVISOR Reaction 04/08/2012 Zenaida documented as of this encounter (statuses as of 10/15/2018) Medications Medication Sig Dispensed Refills Start Date End Date Status divalproex sodium Take 1,500 mg by 0 Active (DEPAKOTE) 500 MG mouth EVERY Oral Tab EC BEDTIME. clonazePAM (KLONOPIN) Take 1 mg by mouth 0 Active 1 MG Oral Tab NEEDED. fluocinonide (LIDEX) applly twice daily 120 g 5 09/06/2017 Active 0.05 % Apply sparingly externally CreamIndications: Eczema, unspecified type naproxen sodium Take 2 Tabs by 120 Tab 3 09/07/2017 Active (ANAPROX) 275 MG Oral mouth TWO TIMES TabIndications: Other DAILY WITH MEALS. chronic pain Levonorgestrel Insert IU with 0 11/11/2016 11/11/2022 Active (MIRENA, 52 MG,) 20 paracervical block MCG/24HR Intrauterine IUD acetaminophen (APAP Take 2 Tabs by 100 Tab 0 03/08/2018 Active EXTRA STRENGTH) 500 mouth EVERY SIX MG Oral Tab HOURS NEEDED (abdominal pain). MDD - 4 ibuprofen (MOTRIN) Take 0.75 Tabs by 90 Tab 2 06/21/2018 Active 800 MG Oral Tab mouth EVERY EIGHT HOURS NEEDED (pain). fluticasone (FLONASE) [place] 2 Sprays in 1 Bottle 2 06/20/2018 Active 50 MCG/ACT Nasal nose DAILY. Suspension ondansetron (ZOFRAN Take 1 Tab by 30 Tab 2 06/25/2018 Active ODT) 4 MG Oral TABLET mouth EVERY SIX DISPERSIBLE HOURS NEEDED (nausea). buPROPion (WELLBUTRIN Take 300 mg by 0 Active XL) 300 MG Oral mouth EVERY TABLET SR 24 HR BEDTIME. buPROPion Take 100 mg by 0 Active (WELLBUTRIN) 100 MG mouth DAILY. Oral Tab clonazePAM (KLONOPIN) Take 0.5 mg by 0 Active 0.5 MG Oral Tab mouth NEEDED. OXYcodone-acetaminoph Take 1 Tab by 100 Tab 0 09/10/2018 Active en (PERCOCET) 5-325 mouth EVERY SIX MG Oral HOURS NEEDED TabIndications: (pain). Max Daily Abdominal pain, Amount: 4 Tabs. unspecified abdominal location Cefdinir (OMNICEF) TAKE 1 CAPSULE BY 0 10/13/2018 Active 300 MG Oral Cap MOUTH EVERY 12 HOURS FOR 7 DAYS Hospital, Clinic, or Ordered Dose Route Frequency Start Date End Date Status Other Facility Administered Medication ibuprofen (MOTRIN) 600 mg PO TID WITH MEALS 06/05/2017 Active tablet 600 mg documented as of this encounter (statuses as of 10/15/2018) Active Problems Problem Noted Date Chronic pelvic pain in female 08/23/2018 Overview: Added automatically from request for surgery [id number] Eczema 10/04/2012 Bipolar I disorder 04/08/2012 Overview: Borderline personality disabled Sprain of neck 04/08/2012 Shoulder injury 04/08/2012 Overview: Atrophy os the muscles on the right from a surgery of the neck Family history of brain aneurysm 04/08/2012 Overview: Mother and grandmother - both at age 40s Family history of diabetes mellitus 04/08/2012 Smoking 04/08/2012 BMI 31.0-31.9,adult 04/08/2012 Overview: This patient's BMI has been calculated and is above average, and BMI management plan is completed. General patient education discussion including: obesity-related excess mortality documented as of this encounter (statuses as of 10/15/2018) Social History Tobacco Use Types Packs/Day Years Used Date Current Every Day Smoker Cigarettes 1 18 Smokeless Tobacco: Never Used Alcohol Use Drinks/Week oz/Week Comments No 0 Standard drinks or equivalent 0.0 Sex Assigned at Date Recorded Not on file Job Start Date Occupation Industry Not on file Not on file Not on file Travel History Travel Start Travel End No recent travel history available. documented as of this encounter Last Filed Vital Signs Vital Sign Reading Time Taken Comments Blood Pressure 138/88 10/15/2018 8:23 AM EDT Pulse 96 10/15/2018 8:23 AM EDT Temperature 37.6 10/15/2018 8:23 AM EDT C (99.6 F) Respiratory Rate - - Oxygen Saturation 98% 10/15/2018 8:23 AM EDT Inhaled Oxygen Concentration - - Weight 64.4 kg (142 lb) 10/15/2018 8:23 AM EDT Height 157.5 cm (5' 2") 10/15/2018 8:23 AM EDT Body Mass Index 25.97 10/15/2018 8:23 AM EDT documented in this encounter Patient Instructions Patient InstructionsDodgYakelin mars PA-C - 10/15/2018 8:40 AM EDT1. Long discussion with patient about salty foods and keeping well hydrated Drink 4-5 glasses of water daily, avoid salty foods -- lunch meat, cheese Elevate legs in evening, wear good support shoes during day 2. Ordered HCG -- will do now 3. Ordered labs -- will do now -- will call with results documented in this encounter Progress Notes Yakelin Ascencio PA-C - 10/15/2018 8:40 AM EDT PATIENT: Tiffanie Orellana : 1980 DATE OF SERVICE: 10/15/2018 REFERRING PRACTITIONER: [facility] PRIMARY CARE PROVIDER: Becky Poe CHIEF COMPLAINT: Chief Complaint Patient presents with Joint Swelling bilateral ankle swelling since around 09/02/18 ( grass roots) ( also pt states she was Dx'd with strep 10/13/18 and is on cefdinir) Subjective HISTORY OF PRESENT ILLNESS: Tiffanie Orellana is a 38-y.o. female who presents with intermittent bilateral ankle swelling x 2 months Says in morning swelling has resolved, but swollen again by end of day Also went to [facility] 10[facility], was diagnosed with strep 10/13/18, prescribed cefdinir 300mg BID x 7days Water: no very much daily Breakfast: yogurt, granula, Lunch: ham sliced, pepperoni, cheese Dinner: taco salad or baked chicken, veggie, starch Drinks 1 pot of coffee daily Alcohol: 2x monthly Denies fever, chills, nausea, vomiting, chest pains, SOB Smokin.5ppd Worried she might be -- mirana IUD was placed in Mar -- no regular periods, intermittent spotting Wants test Very active with 3 children Denies fever, chills, nausea, vomiting, diarrhea, chest pains, SOB No past medical history on file. Past Surgical History: Procedure Laterality Date BIOPSY, LYMPH NODE, DEEP SECTION NEC x 1 COLONOSCOPY N/A 08/10/2016 Procedure: COLONOSCOPY; Surgeon: Jaki Rahman MD; Location: [facility] MAIN OR EGD N/A 08/10/2016 Procedure: ENDOSCOPY UPPER GI; Surgeon: Jaki Rahman MD; Location: [facility] MAIN OR No family history on file. Current Outpatient Medications Medication Sig acetaminophen (APAP EXTRA STRENGTH) 500 MG Oral Tab Take 2 Tabs by mouth EVERY SIX HOURS NEEDED (abdominal pain). MDD - 4 buPROPion (WELLBUTRIN XL) 300 MG Oral TABLET SR 24 HR Take 300 mg by mouth EVERY BEDTIME. buPROPion (WELLBUTRIN) 100 MG Oral Tab Take 100 mg by mouth DAILY. Cefdinir (OMNICEF) 300 MG Oral Cap TAKE 1 CAPSULE BY MOUTH EVERY 12 HOURS FOR 7 DAYS clonazePAM (KLONOPIN) 0.5 MG Oral Tab Take 0.5 mg by mouth NEEDED. clonazePAM (KLONOPIN) 1 MG Oral Tab Take 1 mg by mouth NEEDED. divalproex sodium (DEPAKOTE) 500 MG Oral Tab EC Take 1,500 mg by mouth EVERY BEDTIME. fluocinonide (LIDEX) 0.05 % Apply externally Cream applly twice daily sparingly fluticasone (FLONASE) 50 MCG/ACT Nasal Suspension [place] 2 Sprays in nose DAILY. ibuprofen (MOTRIN) 800 MG Oral Tab Take 0.75 Tabs by mouth EVERY EIGHT HOURS NEEDED (pain). Levonorgestrel (MIRENA, 52 MG,) 20 MCG/24HR Intrauterine IUD Insert IU with paracervical block naproxen sodium (ANAPROX) 275 MG Oral Tab Take 2 Tabs by mouth TWO TIMES DAILY WITH MEALS. ondansetron (ZOFRAN ODT) 4 MG Oral TABLET DISPERSIBLE Take 1 Tab by mouth EVERY SIX HOURS NEEDED (nausea). OXYcodone-acetaminophen (PERCOCET) 5-325 MG Oral Tab Take 1 Tab by mouth EVERY SIX HOURS NEEDED (pain). Max Daily Amount: 4 Tabs. Current Facility-Administered Medications Medication ibuprofen (MOTRIN) tablet 600 mg Allergies Allergen Reactions Chantix [Varenicline Tartrate] WIREWORKER SUPERVISOR Reaction zenaida Hydrocodone GI Reaction Stomach upset Serotonin Reuptake Inhibitors WIREWORKER SUPERVISOR Reaction Zenaida Social History Socioeconomic History Marital status: Spouse name: Not on file Number of children: Not on file Years of education: Not on file Highest education level: Not on file Occupational History Not on file Social Needs Financial resource strain: Not on file Food insecurity: Worry: Not on file Inability: Not on file Transportation needs: Medical: Not on file Non-medical: Not on file Tobacco Use Smoking status: Current Every Day Smoker Packs/day: 1.00 Years: 18.00 Pack years: 18.00 Types: Cigarettes Smokeless tobacco: Never Used Substance and Sexual Activity Alcohol use: No Alcohol/week: 0.0 standard drinks Drug use: No Sexual activity: Not Currently control/protection: Abstinence, IUD Lifestyle Physical activity: Days per week: Not on file Minutes per session: Not on file Stress: Not on file Relationships Social connections: Talks on phone: Not on file Gets together: Not on file Attends yazdanism service: Not on file Active member of club or organization: Not on file Attends meetings of clubs or organizations: Not on file Relationship status: Not on file Intimate partner violence: Fear of current or ex partner: Not on file Emotionally abused: Not on file Physically abused: Not on file Forced sexual activity: Not on file Other Topics Concern Not on file Social History Narrative 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 Positive intermittent spotting -- see hpi Musculoskeletal: positive arthritis/joint pain Neurologic: negative numbness or tingling of feet or hands Psychiatric: positive bipolar Hematologic/Lymphatic/Immunologic: negative allergies Endocrine: negative diabetes or hot flashes/sweats Objective PHYSICAL EXAMINATION: VITALS: BP 138/88 (BP Location: Left arm, Patient Position: Sitting) | Pulse 96 | Temp 99.6 F(37.6 C) | Ht 5' 2" (1.575 m) | Wt 142 lb (64.4 kg) | SpO2 98% | BMI 25.97 kg/m Body mass index is 25.97 kg/m. General appearance - alert, mild distress, cooperative, oriented times 3 Skin - Skin color, texture, turgor normal. No rashes or lesions. Head - Normocephalic. No masses, lesions, tenderness or abnormalities Eyes - conjunctivae/corneas clear. PERRL, EOM's intact. Oropharynx - Lips, mucosa, and tongue normal. Teeth and gums normal. Oropharynx normal. Neck - Neck supple, FROM. No cervical or supraclavicular adenopathy. Thyroid normal, no enlargement Lungs - Good diaphragmatic excursion. Lungs clear. Chest symmetrical. Normal breath sounds. Heart - RRR. No murmurs, clicks or gallops. Bilateral ankles: trace non-pitting edema present. NO erythema or tenderness IMPRESSION: ICD-9-CM ICD-10-CM 1. Edema of both ankles 719.07 M25.471 COMPREHENSIVE METABOLIC PANEL M25.472 COMPREHENSIVE METABOLIC PANEL 2. Spotting 623.8 N92.0 HCG QUALITATIVE SERUM HCG QUALITATIVE SERUM 3. Malaise and fatigue 780.79 R53.81 CBC WITH DIFFERENTIAL R53.83 THYROID STIMULATING HORMONE THYROID STIMULATING HORMONE CBC WITH DIFFERENTIAL Plan PLAN: 1. Long discussion with patient about salty foods and keeping well hydrated Drink 4-5 glasses of water daily, avoid salty foods -- lunch meat, cheese Elevate legs in evening, wear good support shoes during day 2. Ordered HCG -- will do now 3. Ordered labs -- will do now -- will call with results Author: Yakelin Ascencio PA-C 10/15/2018 08:14 documented in this encounter Plan of Treatment Date Type Specialty Care Team Description 11/01/2018 Office Visit Family Practice Saranya Chaves MD [address] [place] [address] [phone] 11/04/2018 Office Visit Internal Medicine Becky Poe MD [address] [place] [address] [phone] 11/15/2018 Office Visit Internal Medicine Becky Poe MD [address] [place] [address] [phone] Name Type Priority Associated Diagnoses Date/Time COMPREHENSIVE METABOLIC Lab Routine Edema of both ankles 10/15/2018 8:58 AM EDT PANEL CBC WITH DIFFERENTIAL Lab Routine Malaise and fatigue 10/15/2018 8:58 AM EDT THYROID STIMULATING HORMONE Lab Routine Malaise and fatigue 10/15/2018 8: 58 AM EDT HCG QUALITATIVE SERUM Lab Routine Spotting 10/15/2018 8:58 AM EDT Name Type Priority Associated Diagnoses Order Schedule COMPREHENSIVE METABOLIC Lab Routine Edema of both ankles Expected: 2018 PANEL (Approximate), Expires: 10/16/2019 CBC WITH DIFFERENTIAL Lab Routine Malaise and fatigue Expected: 10/15/2018 (Approximate), Expires: 10/16/2019 THYROID STIMULATING HORMONE Lab Routine Malaise and fatigue Expected: 10/15 (Approximate), Expires: 10/16/2019 HCG QUALITATIVE SERUM Lab Routine Spotting Expected: 10/15/2018 (Approximate), Expires: 10/16/2019 Health Maintenance Due Date Last Done Comments MEDICARE ANNUAL WELLNESS VISIT 1980 PNEUMOCOCCAL 0-64 YRS (1 of 1 1985 - PPSV23) INFLUENZA VACCINE (#1) 2018 DEPRESSION SCREENING 07/13/2019 07/12/2018 PAP SMEAR 08/19/2021 08/19/2018, 04/08/2012 HPV IMMUNIZATION SERIES Aged Out No longer eligible based on patient's age to complete this topic MENINGOCOCCAL VACCINE IMM Aged Out No longer eligible based on patient's age to complete this topic documented as of this encounter Goals Goal Patient Goal Associated Recent Patient-Stated? Author Type Problems Progress Depression Depression No chung Poe (PHQ-9) MD Becky total score < 5 Note: This is an individualized treatment (depression) goal for Tiffanie Orellana: Displayed above is your goal for a depression screening (PHQ-9) score that would indicate good control of your depression. Lifestyle - Current Smoker Lifestyle Smoking No Becky Poe MD Note: Smoking Cessation Plan Discussed smoking cessation with patient. Patient readiness to quit:yes Discussed smoking cessation plan according to AHRQ guidelines:counseled patient on the risks of tobacco use My Quit Plan: My quit date is set for monica Notify my friends, family, and co-workers about decision to quit. Will ask for their support and understanding Remove tobacco products from my environment. I will ask people not to smoke around me or in my home. I will anticipate challenges at the beginning and will try not to be discouraged. To remember the benefits of quitting such as improved health, feeling better about myself, saving money, etc. Reducing stressors and avoiding triggers are essential keys to my success Finding ways to distract myself when I have the urge to smoke such as taking a walk, reading, playing a board game, putting together a puzzle, etc. Taking medications as my healthcare provider has advised to help alleviate the urge to smoke. If I am unable to take the medication, I will discuss further with my healthcare provider. Recognize reasons for relapse in my past attempts. What did and did not work for me Consider connecting with group, individual, or telephone counseling . Keep a regular sleep schedule Lifestyle No Becky Poe MD Note: This is an individualized lifestyle goal for Tiffanie Orellana: Please maintain a regular sleep schedule. This may help with some symptoms of depression. Take all prescribed medications as directed Self-management Becky Renteria MD Note: This is an individualized self-management goal for Tiffanie Orellana: Please take all prescribed medications as directed. 1. Do not skip doses. If you cannot afford your medications, talk with your doctor. 2. Use a pill reminder system such as a pill box if needed. Your pharmacist can help you with this. 3. Contact your Pharmacy 5 days before your medication runs out. If you cannot take your medications for any reasons, talk with your doctor. 4. Please bring all of your medication bottles and inhalers (or a list of all your medications/inhalers) with you to every visit. Potential barriers to meeting all of your care plan goals will continue to be addressed on an ongoing basis. documented as of this encounter Results Not on filedocumented in this encounter Visit Diagnoses Diagnosis Edema of both ankles - Primary Spotting Other specified noninflammatory disorder of vagina Malaise and fatigue Other malaise and fatigue documented in this encounter Insurance Payer Benefit Plan / Subscriber ID Effective Dates Phone Address Type Group MEDICARE MEDICARE PART A xxxxxxxxxxx 2010-Present Medicare & B MEDICAID [facility] xxxxxxxx 2016-Present Medicaid [place] MEDICAID documented as of this encounter
--- NOTE | 2018-11-30 06:16 | ED ---
Influenza-Like Illness - HPI Summary HPI Summary: This pt is a 38 Y/O F presenting to [facility] with a CC of flu like symptoms. She states that she has had a sore throat since 11/28/18 but it progressively got worse. She states that at 0400 this morning she developed chills, nausea, dizziness, myalgia, arthralgia, nasal congestion, productive cough, rhinorrhea, and a headache. She states that her body aches and nasal congestion is rated a 7 /10 in severity. Currently she states no aggravating or alleviating factors. She has a PMHx of diverticulosis and Cirrhosis. She has a SHx of smoking tobacco , marijuana, and drinking occasionally. - History of Current Complaint Chief Complaint: EDFluSymptoms Time Seen by Provider: 11/30/18 05:47 Hx Obtained From: Patient Onset/Duration: Sudden Onset, Lasting Days - 2, Still Present, Worse Since - 0400 today Severity: Moderate - 7/10 Associated Signs & Symptoms: Fever, Myalgia, Cough - productive, Sore Throat, Nasal Congestion, Headache, Vomiting Related Hx: Smoking - Allergy/Home Medications Allergies/Adverse Reactions: Allergies Allergy/AdvReac Type Severity Reaction Status Date / Time No Known Allergies Allergy Verified 09/11/17 22:21 PMH/Surg Hx/FS Hx/Imm Hx Previously Healthy: Yes Endocrine/Hematology History: Denies: Hx Anticoagulant Therapy, Hx Diabetes, Hx Systemic Lupus Erythematosus, Hx Thyroid Disease Cardiovascular History: Denies: Hx Hypertension Respiratory History: Denies: Hx Asthma, Hx Chronic Obstructive Pulmonary Disease (COPD) GI History: Reports: Hx Cirrhosis - says may have non ETOH related?, Hx Diverticulosis - says may have? Denies: Hx Ulcer History: Denies: Hx Renal Disease Musculoskeletal History: Denies: Hx Rheumatoid Arthritis Sensory History: Reports: Hx Contacts or Glasses Denies: Hx Hearing Aid Opthamlomology History: Reports: Hx Contacts or Glasses Psychiatric History: Reports: Hx Anxiety, Hx Eating Disorder, Hx Depression, Hx Panic Disorder, Hx Inpatient Treatment, Hx Community Mental Health Tx, Hx Bipolar Disorder, Hx Substance Abuse, Other Psychiatric Issues/Disorders Denies: Hx Attention Deficit Hyperactivity Disorder, Hx Post Traumatic Stress Disorder, Hx Schizophrenia, Hx Suicide Attempt, Hx of Violent Episodes Against Others - Cancer History Cancer Type, Location and Year: patient gives pressured, 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 Hx Chemotherapy: No Hx Radiation Therapy: No Hx Palliative Cancer Treatment: No - Surgical History Surgery Procedure, Year, and Place: 2000 - RIGHT Lymph nodes removed to biopsy thought she had cancer - she didn't. 2010- C section - Immunization History Immunizations Up to Date: Yes Infectious Disease History: No Infectious Disease History: Denies: Hx Clostridium Difficile, Hx Hepatitis, Hx Human Immunodeficiency Virus (HIV), Hx of Known/Suspected MRSA, Hx Shingles, Hx Tuberculosis, Hx Known/ Suspected VRE, Hx Known/Suspected VRSA, History Other Infectious Disease, Traveled Outside the [place] in Last 30 Days - Family History Known Family History: Positive: Diabetes - Father , Other - CVA mother - Social History Alcohol Use: Occasionally Alcohol Amount: 1-2 drinks, 3-4 times per year Hx Substance Use: Yes Substance Use Type: Reports: Marijuana Hx Tobacco Use: Yes Smoking Status (MU): Heavy Every Day Tobacco Smoker Type: Cigarettes Have You Smoked in the Last Year: Yes Review of Systems Constitutional: Other - POSITIVE: dizziness Positive: Chills ENT: Other - rhinorrhea Positive: Cough - productive Positive: Nausea Positive: Arthralgia, Myalgia Positive: Headache All Other Systems Reviewed And Are Negative: Yes Physical Exam - Summary Physical Exam Summary: General: Well-developed, Mildly ill appearing female HEENT: Normocephalic, Atraumatic. Eyes: Conjuctiva normal, PERRL. Ears: TMs within normal limits. Nares: (-) discharge, (-) erythema. Oropharynx: Clear, mucous membranes moist, (-) exudates. erythematous Neck: Soft, FROM, (-) lymphadenopathy, (-) thyromegaly, (-) JVD. Cardiovascular: Normal sinus rhythm, (-) murmur. Lungs: decreased breath sounds bilaterally (-) wheezes, (-) rales, (-) rhonchi. Abdomen: Soft, non-tender, non-distended, (-) organomegaly, normal bowel sounds. Back: (-) CVA tenderness Extremities: No edema. Skin: Warm, dry, (-) rash. Neuro: Alert and oriented x3, no focal deficits. Psychiatric: Mood normal, affect normal. Triage Information Reviewed: Yes Vital Signs On Initial Exam: Initial Vitals Temp Pulse Resp BP Pulse Ox 98.2 F 102 20 150/98 97 11/30/18 04:46 11/30/18 04:46 11/30/18 04:46 11/30/18 04:46 11/30/18 04:46 Vital Signs Reviewed: Yes Procedures - Sedation Patient Received Moderate/Deep Sedation with Procedure: No Diagnostics - Vital Signs Vital Signs Temp Pulse Resp BP Pulse Ox 11/30/18 04:46 98.2 F 102 20 150/98 97 - Laboratory Lab Results: Lab Results 11/30/18 Range/Units 06:00 Influenza A (Rapid) Pending Influenza B (Rapid) Pending Lab Statement: Any lab studies that have been ordered have been reviewed, and results considered in the medical decision making process. Re-Evaluation - Re-Evaluation First Eval Re-Evaluation Time: 06:29 Change: Unchanged Comment: Pt was given Ibuprofen Flu Symptom Course/Dx - Course Course Of Treatment: 38-year-old female with flulike symptoms. Given ibuprofen. Workup pending. Signed out at change of shift - Diagnoses Provider Diagnoses: Viral illness, PNA (pneumonia) Discharge ED - Sign-Out/Discharge Documenting (check all that apply): Sign-Out Patient Signing out patient TO: Guerrero Lincoln - Discharge Plan Condition: Stable Referrals: Becky Poe MD [Primary Care Provider] - - Billing Disposition and Condition Condition: STABLE - Attestation Statements Document Initiated by Scribe: Yes Documenting Scribe: Osvaldo Moreno Provider For Whom Scribe is Documenting (Include Credential): Angela Younger MD Scribe Attestation: Osvaldo Sabillon, scribed for Angela Younger MD on 11/30/18 at 0631. Scribe Documentation Reviewed: Yes Provider Attestation: The documentation as recorded by the Osvaldo allison accurately reflects the service I personally performed and the decisions made by me, Angela Younger MD Status of Scribe Document: Viewed
[2018-11-30] MEDS ORDERED: Ibuprofen TAB* 400 MG PO ONE (06:19)
[2018-11-30 06:25] LABS: Influenza A Molecular NEGATIVE (Negative); Influenza B Molecular NEGATIVE (Negative)
[2018-11-30 06:42] LABS: ABS Eosinophils 0.3 10^3/ul (0-0.6); ABS Lymphocytes 1.6 10^3/ul (1.0-4.8); ABS Monocytes 0.9 10^3/ul (0-0.8); ABS Neutrophils 10.6 10^3/ul (1.5-7.7); Eosinophil % 2.2 %; Hematocrit 45 % (35-47); Hemoglobin 15.2 g/dL (12.0-16.0); Lymphocyte % 11.6 %; Mean Corpuscular HGB Conc 34 g/dL (31-36); Mean Corpuscular Hemoglobin 32 pg (27-31); Mean Corpuscular Volume 95 fL (80-97); Mean Platelet Volume 8.1 fL (7.4-10.4); Platelet Count 255 10^3/uL (150-450); Red Blood Count 4.78 10^6 /uL (3.70-4.87); Red Cell Distribution Width 13 % (10-15); White Blood Count 13.4 10^3/uL (3.5-10.8)
[2018-11-30 07:00] LABS: ALT 12 U/L (7-52); AST 12 U/L (13-39); Albumin 4.1 g/dL (3.2-5.2); Albumin/Globulin Ratio 1.4 (1-3); Alkaline Phosphatase 80 U/L (34-104); Anion Gap 7 mmol/L (2-11); BUN/Creatinine Ratio 11.8 (8-20); Blood Urea Nitrogen 8 mg/dL (6-24); CO2 Carbon Dioxide 21 mmol/L (22-32); Calcium 9.3 mg/dL (8.6-10.3); Chloride 106 mmol/L (101-111); EGFR African American 116.6 (>60); EGFR Non-African American 96.3 (>60); Globulin 2.9 g/dL (2-4); Glucose 105 mg/dL (70-100); Potassium 4.1 mmol/L (3.5-5.0); Sodium 134 mmol/L (135-145)
[2018-11-30] MEDS ORDERED: Amoxicillin/Clavulanate TAB* 875 MG PO ONE (07:02)
[2018-11-30 07:07] LABS: HCG Pregnancy < 0.60 mIU/mL
[2018-11-30 07:15] VITALS: BP 129/96
== END 2018-11-30 07:15 | disposition home or self-care (01) ==
LOC: ED 04:44
DX: B34.9 Viral infection, unspecified (principal); J18.9 Pneumonia, unspecified organism; F17.210 Nicotine dependence, cigarettes, uncomplicated
CPT/HCPCS: 36415; 71045; 80053; 83605; 84702; 85025; 99282; A9270-GY

== ENCOUNTER 2018-12-30 09:28 | Emergency (ER) | payer MEDICARE, MEDICAID ==
--- NOTE | 2018-12-30 09:40 | ED ---
Abdominal Pain/Female - HPI Summary HPI Summary: 38-year-old female with significant past medical history of bipolar disorder, ovarian cysts, diverticulosis presents to the emergency department today complaining of abdominal pain 3 weeks. She states her abdominal pain is located in the left upper quadrant of her abdomen and she describes as a cramping feeling. She states she is seen multiple doctors for the last 3 weeks and got no answers as to what caused her symptoms. She states she has felt like she has had fevers, nausea, diarrhea, abdominal pain for 3 weeks. She's taken Percocet prior to arrival for alleviation of her symptoms which she is given for her chronic pain from ovarian cysts. She denies alcohol use but endorses occasional marijuana use. She denies chest pain, shortness breath, blood per rectum, dark stools, light colored stools, vomiting, rash. - History of Current Complaint Chief Complaint: EDAbdPain Stated Complaint: GENERAL Time Seen by Provider: 12/30/18 09:40 Hx Obtained From: Patient Hx Last Menstrual Period: 05/14/12 Onset/Duration: Gradual Onset, Lasting Weeks Timing: Constant Severity Initially: Moderate Severity Currently: Moderate Pain Intensity: 5 Pain Scale Used: 0-10 Numeric Location: Discrete At: LUQ Radiates: No Aggravating Factor(s): Movement Alleviating Factor(s): OTC Analgesics Associated Signs and Symptoms: Positive: Diarrhea. Negative: Diaphoresis, Fever , Cough, Chest Pain, Dizzy, Constipation, Blood in Stool Allergies/Adverse Reactions: Allergies Allergy/AdvReac Type Severity Reaction Status Date / Time hydrocodone Allergy Vomiting Verified 12/30/18 09:35 varenicline [From Chantix] Allergy See Comment Verified 12/30/18 09:35 ssri Allergy See Comment Uncoded 12/30/18 09:35 PMH/Surg Hx/FS Hx/Imm Hx Endocrine/Hematology History: Denies: Hx Anticoagulant Therapy, Hx Diabetes, Hx Systemic Lupus Erythematosus, Hx Thyroid Disease Cardiovascular History: Denies: Hx Hypertension Respiratory History: Denies: Hx Asthma, Hx Chronic Obstructive Pulmonary Disease (COPD) GI History: Reports: Hx Cirrhosis - says may have non ETOH related?, Hx Diverticulosis - says may have? Denies: Hx Ulcer History: Denies: Hx Renal Disease Musculoskeletal History: Denies: Hx Rheumatoid Arthritis Sensory History: Reports: Hx Contacts or Glasses Denies: Hx Hearing Aid Opthamlomology History: Reports: Hx Contacts or Glasses Psychiatric History: Reports: Hx Anxiety, Hx Eating Disorder, Hx Depression, Hx Panic Disorder, Hx Inpatient Treatment, Hx Community Mental Health Tx, Hx Bipolar Disorder, Hx Substance Abuse, Other Psychiatric Issues/Disorders Denies: Hx Attention Deficit Hyperactivity Disorder, Hx Post Traumatic Stress Disorder, Hx Schizophrenia, Hx Suicide Attempt, Hx of Violent Episodes Against Others - Cancer History Cancer Type, Location and Year: patient gives pressured, 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 Hx Chemotherapy: No Hx Radiation Therapy: No Hx Palliative Cancer Treatment: No - Surgical History Surgery Procedure, Year, and Place: 2000 - RIGHT Lymph nodes removed to biopsy thought she had cancer - she didn't. 2010- C section Infectious Disease History: No Infectious Disease History: Denies: Hx Clostridium Difficile, Hx Hepatitis, Hx Human Immunodeficiency Virus (HIV), Hx of Known/Suspected MRSA, Hx Shingles, Hx Tuberculosis, Hx Known/ Suspected VRE, Hx Known/Suspected VRSA, History Other Infectious Disease, Traveled Outside the [place] in Last 30 Days - Family History Known Family History: Positive: Diabetes - Father , Other - CVA mother - Social History Alcohol Use: Occasionally Alcohol Amount: 1-2 drinks, 3-4 times per year Hx Substance Use: Yes Substance Use Type: Reports: Marijuana Hx Tobacco Use: Yes Smoking Status (MU): Heavy Every Day Tobacco Smoker Type: Cigarettes Have You Smoked in the Last Year: Yes Review of Systems Constitutional: Negative Eyes: Negative ENT: Negative Cardiovascular: Negative Respiratory: Negative Positive: Abdominal Pain, Diarrhea, Nausea Genitourinary: Negative Musculoskeletal: Negative Skin: Negative Neurological: Negative Psychological: Normal All Other Systems Reviewed And Are Negative: Yes Physical Exam Triage Information Reviewed: Yes Vital Signs On Initial Exam: Initial Vitals Temp Pulse Resp BP Pulse Ox 98.8 F 93 16 134/104 98 12/30/18 09:32 12/30/18 09:32 12/30/18 09:32 12/30/18 09:32 12/30/18 09:32 Vital Signs Reviewed: Yes Appearance: Positive: Well-Appearing, No Pain Distress, Well-Nourished Skin: Positive: Warm, Skin Color Reflects Adequate Perfusion Eyes: Positive: EOMI, SHERRI ENT: Positive: Hearing grossly normal Respiratory/Lung Sounds: Positive: Clear to Auscultation, Breath Sounds Present Cardiovascular: Positive: RRR, S1, S2 Abdomen Description: Positive: Soft, Other: - Inspection reveals no ecchymosis or masses. Auscultation reveals normoactive bowel sounds. Percussion reveals normal tympany. Palpation of the left upper quadrant reveals mild tenderness. Negative Cobb's, McBurney's, psoas, Rovsing, obturator sign.. Negative: CVA Tenderness (R), CVA Tenderness (L), Distended, Guarding, McBurney's Point Tenderness Bowel Sounds: Positive: Present Musculoskeletal: Positive: Normal Neurological: Positive: Sensory/Motor Intact, Alert, Oriented to Person Place, Time, Facial Symmetry, Speech Normal Psychiatric: Positive: Normal AVPU Assessment: Alert Procedures - Sedation Patient Received Moderate/Deep Sedation with Procedure: No Diagnostics - Vital Signs Vital Signs Temp Pulse Resp BP Pulse Ox 12/30/18 09:32 98.8 F 93 16 134/104 98 - Laboratory Result Diagrams: 12/30/18 10:07 12/30/18 10:07 Lab Statement: Any lab studies that have been ordered have been reviewed, and results considered in the medical decision making process. Abdominal Pain Fem Course/Dx - Course Course Of Treatment: Patient was evaluated in the emergency department today for abdominal pain. The patient was seen and examined. Patient's vital signs are stable and she was afebrile. Laboratory studies as well as a CT with oral and IV contrast Abdomen and pelvis was obtained. Laboratory studies revealed no evidence of leukocytosis or anemia, no electronic disturbances however she did have an elevated CRP at 48.08. No evidence of UTI. CT of the abdomen and pelvis revealed right basilar atelectasis, no definite evidence of diverticulitis. No evidence of bowel obstruction. The ovaries demonstrate normal-appearing follicles bilaterally. The patient was told to follow-up with her GI doctor or primary care doctor for further evaluation and management of her symptoms. She was told to return to the emergency department immediately if she developed any new or worsening symptoms. - Diagnoses Differential Diagnosis: Positive: Diverticulitis, Gall Bladder Disease, Ovarian Cyst Provider Diagnoses: Abdominal pain Discharge ED - Sign-Out/Discharge Documenting (check all that apply): Patient Departure - Discharge Plan Condition: Stable Disposition: HOME Patient Education Materials: Abdominal Pain (ED) Referrals: Becky Poe MD [Primary Care Provider] - 3 Days Additional Instructions: You were seen in the emergency department today for abdominal pain. I'm unsure why you are having abdominal pain however laboratory studies and a CT scan of the abdomen revealed no evidence of acute pathology including diverticulitis or ovarian cysts. Please follow-up with your primary care for provider for further evaluation and management of your abdominal pain. Please return to the emergency department immediately if you develop any new or worsening symptoms. - Billing Disposition and Condition Condition: STABLE Disposition: Home
--- OUTSIDE RECORDS SUMMARY | 2018-12-30 09:52 | XMS REPORT | Summary of Care ---
:1980 Author Organization [facility] Address [address] [facility] [place] [address] Care Team Providers Name Role Phone Becky Poe Primary Care Provider Reason for Referral MRI/CAT/PET Scan (Routine) Status Reason Specialty Diagnoses / Procedures Referred By Contact Referred To Contact Closed Diagnoses Subcutaneous nodules Mono, Yakelin, Procedures US SOFT TISSUE HEAD NECK ULTRASOUND [facility] [place] [address] Reason for Visit Reason Comments Fatigue [id number] Lump 2 hard lumps one of them hurts, 3 "fluid pockets" like lumps all on the back on the back of the neck Hair Loss not falling out at the roots.[id number] Diarrhea saw wanted a stool sample , could not be resulted because sample was too solid Congestion sinus pressure Encounter Details Date Type Department Care Team Description 12/26/2018 Office Visit [facility] Mono, Yakelin, Malaise and fatigue (Primary Dx); Practice PA-C Diarrhea, unspecified type; [address] [facility] Subcutaneous nodules; [place] [address] [place] [address] Hair loss [phone] Allergies Active Allergy Reactions Severity Noted Date Comments Varenicline Tartrate RUBBER MILL TENDER Reaction 04/08/2012 zenaida Hydrocodone GI Reaction 10/04/2012 Stomach upset Serotonin Reuptake Inhibitors RUBBER MILL TENDER Reaction 04/08/2012 Zenaida documented as of this encounter (statuses as of 12/26/2018) Medications Medication Sig Dispensed Refills Start Date End Date Status clonazePAM (KLONOPIN) Take 1 mg by mouth [...] EVERY EIGHT HOURS NEEDED (pain). fluticasone (FLONASE) Farber 2 Sprays in 1 Bottle 2 06/20/2018 Active 50 MCG/ACT Nasal nose DAILY. Suspension clonazePAM (KLONOPIN) Take 0.5 mg by 0 Active 0.5 MG Oral Tab mouth NEEDED. ondansetron (ZOFRAN Take 1 Tab by 30 Tab 2 12/11/2018 Active ODT) 4 MG Oral TABLET mouth EVERY SIX DISPERSIBLE HOURS NEEDED (nausea). OXYcodone-acetaminoph Take 1 Tab by 100 Tab 0 12/11/2018 Active en (PERCOCET) 5-325 mouth EVERY SIX MG Oral HOURS NEEDED TabIndications: (pain). Max Daily Abdominal pain, Amount: 4 Tabs. unspecified abdominal location Hospital, Clinic, or Ordered Dose Route Frequency Start Date End Date Status Other Facility Administered Medication ibuprofen (MOTRIN) 600 mg PO TID WITH MEALS 06/05/2017 Active tablet 600 mg documented as of this encounter (statuses as of 12/26/2018) Active Problems Problem Noted Date Chronic pelvic pain in female 08/23/2018 Overview: Added automatically from request for surgery [id number] Eczema 10/04/2012 Bipolar I disorder 04/08/2012 Overview: [...] as of this encounter (statuses as of 12/26/2018) Social History Tobacco Use Types Packs/Day Years [...] Sign Reading Time Taken Comments Blood Pressure 138/90 12/26/2018 8:52 AM EST Pulse 96 12/26/2018 8:52 AM EST Temperature 37.1 12/26/2018 8:52 AM EST C (98.7 F) Respiratory Rate - - Oxygen Saturation 97% 12/26/2018 8:52 AM EST Inhaled Oxygen Concentration - - Weight 63.8 kg (140 lb 9.6 oz) 12/26/2018 8:52 AM EST Height 157.5 cm (5' 2") 12/26/2018 8:52 AM EST Body Mass Index 25.72 12/26/2018 8:52 AM EST documented in this encounter Patient Instructions Patient InstructionsDodgYakelin mars PA-C - 12/26/2018 8:40 AM EST1. Ordered lab -- will do now -- will call with results 2. Ordered stool cultures, patient will bring back to lab -- will call with results 3. Ordered US -- scheduled for later today, will call with results Keep well hydrated, avoid dairy, bland diet documented in this encounter Progress Notes Yakelin Ascencio PA-C - 12/26/2018 8:40 AM EST PATIENT: Tiffanie Orellana : 1980 DATE OF SERVICE: 12/26/2018 REFERRING PRACTITIONER: Self-Referred PRIMARY CARE PROVIDER: Becky Poe CHIEF COMPLAINT: Chief Complaint Patient presents with Fatigue [id number] Lump 2 hard lumps one of them hurts, 3 "fluid pockets" like lumps all on the back on the back of the neck Hair Loss not falling out at the roots.[id number] Diarrhea saw wanted a stool sample , could not be resulted because sample was too solid Subjective HISTORY OF PRESENT ILLNESS: Tiffanie Orellana is a 38-y.o. female who presents with multiple complaints 1. Fatigue x 4 weeks Eating healthy diet Water -- "not as much as I need to" -- 3 bottles Coffee: 2 cups daily 2. 2 Tender lumps back of neck x 1 week 3. Hair loss x 2 weeks -- has been dying hair 4. Intermittent Non-bloody diarrhea x [address] Poe order stool culture but could not be cultured was too formed -- tested for C-Dif Denies fever, chills, nausea, vomiting, chest pains, SOB No past medical history on file. Past Surgical History: Procedure Laterality Date BIOPSY, LYMPH NODE, DEEP SECTION NEC x 1 COLONOSCOPY N/A 08/10/2016 Procedure: COLONOSCOPY; Surgeon: Jaki Rahman MD; Location: [facility] MAIN OR EGD N/A 08/10/2016 Procedure: ENDOSCOPY UPPER GI; Surgeon: Jaki Rahman MD; Location: [facility] MAIN OR No family history on file. Current Outpatient Medications Medication Sig acetaminophen (APAP EXTRA STRENGTH) 500 MG Oral Tab Take 2 Tabs by mouth EVERY SIX HOURS NEEDED (abdominal pain). MDD - 4 clonazePAM (KLONOPIN) 0.5 MG Oral Tab Take 0.5 mg by mouth NEEDED. clonazePAM (KLONOPIN) 1 MG Oral Tab Take 1 mg by mouth NEEDED. fluocinonide (LIDEX) 0.05 % Apply externally Cream applly twice daily sparingly fluticasone (FLONASE) 50 MCG/ACT Nasal Suspension Farber 2 Sprays in nose DAILY. ibuprofen (MOTRIN) [...] mg Allergies Allergen Reactions Chantix [Varenicline Tartrate] RUBBER MILL TENDER Reaction zenaida Hydrocodone GI Reaction Stomach upset Serotonin Reuptake Inhibitors RUBBER MILL TENDER Reaction Zenaida Social History Socioeconomic History Marital [...] No Sexual activity: Not Currently control/protection: Abstinence, I.U.D. Lifestyle Physical activity: Days per week: Not on file Minutes per session: Not on file Stress: Not on file Relationships Social connections: Talks on phone: Not on file Gets together: Not on file Attends yarsani service: Not on file Active member of [...] at home mom REVIEW OF SYSTEMS: Skin: 3 tender lumps back of neck Eyes: negative visual blurring Ears/Nose/Throat: negative rhinorrhea, sore throat, sinus pressure, post nasal drip Respiratory: negative cough Cardiovascular: negative chest pain Gastrointestinal: negative abdominal pain, constipation, nausea or vomiting. Positive non-bloody diarrhea Genitourinary: negative burning on urination, dysuria or vaginal discharge Musculoskeletal: positive arthritis/joint pain Neurologic: negative numbness or tingling of feet or hands Psychiatric: positive Biploar Hematologic/Lymphatic/Immunologic: negative allergies. Positive fatigue Endocrine: negative diabetes or hot flashes/sweats Objective PHYSICAL EXAMINATION: VITALS: BP 138/90 (BP Location: Right arm, Patient Position: Sitting) | Pulse 96 | Temp 98.7 F (37.1 C) (Tympanic) | Ht 5' 2" (1.575 m) | Wt 140 lb 9.6 oz (63.8 kg) | SpO2 97% | BMI 25.72 kg/m Body mass index is 25.72 kg/m. General appearance - alert, mild distress, cooperative, oriented times 3 Skin - Skin color, texture, turgor normal. No rashes or lesions. Head - Normocephalic. Posterior scalp, left side: 2 small subcutaneous nodules, right side 1 nodule,well defined edges, mobile, tender to palpation Eyes - conjunctivae/corneas clear. PERRL, EOM's intact. Oropharynx - Lips, mucosa, and tongue normal. Teeth and gums normal. Oropharynx normal. Neck - Neck supple, FROM. No cervical or supraclavicular adenopathy. Thyroid normal, no enlargement Lungs - Good diaphragmatic excursion. Lungs clear. Chest symmetrical. Normal breath sounds. Heart - RRR. No murmurs, clicks or gallops. No peripheral edema. ABDOMEN: soft, non-tender. Bowel sounds normal. No masses, no organomegaly. . IMPRESSION: ICD-9-CM ICD-10-CM 1. Malaise and fatigue 780.79 R53.81 COMPREHENSIVE METABOLIC PANEL R53.83 CBC WITH DIFFERENTIAL THYROID STIMULATING HORMONE THYROID STIMULATING HORMONE CBC WITH DIFFERENTIAL COMPREHENSIVE METABOLIC PANEL 2. Diarrhea, unspecified type 787.91 R19.7 STOOL CULTURE C. DIFFICILE (STOOL) GIARDIA AND CRYPTOSPORIDIUM 3. Subcutaneous nodules 782.2 R22.9 US SOFT TISSUE HEAD NECK ULTRASOUND 4. Hair loss 704.00 L65.9 Plan PLAN: 1. Ordered lab -- will do now -- will call with results 2. Ordered stool cultures, patient will bring back to lab -- will call with results 3. Ordered US -- scheduled for later today, will call with results 4. Ordered TSH Keep well hydrated, avoid dairy, bland diet Author: Yakelin Ascencio PA-C 12/26/2018 08:44 documented in this encounter Plan of Treatment Name Type Priority Associated Diagnoses Date/Time COMPREHENSIVE METABOLIC Lab Routine Malaise and fatigue 12/26/2018 9:14 AM PANEL EST CBC WITH DIFFERENTIAL Lab Routine Malaise and fatigue 12/26/2018 9:14 AM EST THYROID STIMULATING Lab Routine Malaise and fatigue 12/26/2018 9:14 AM HORMONE EST US SOFT TISSUE HEAD NECK Imaging Routine Subcutaneous nodules 12/26/2018 9 :21 AM ULTRASOUND EST Name Type Priority Associated Diagnoses Order Schedule COMPREHENSIVE METABOLIC Lab Routine Malaise and fatigue Expected: 2018 PANEL (Approximate), Expires: 12/27/2019 CBC WITH DIFFERENTIAL Lab Routine Malaise and fatigue Expected: 12/26/2018 (Approximate), Expires: 12/27/2019 THYROID STIMULATING Lab Routine Malaise and fatigue Expected: 12/26/2018 HORMONE (Approximate), Expires: 12/27/2019 STOOL CULTURE Lab Routine Diarrhea, unspecified 1 Occurrences type starting 12/26/2018 until 06/24/2019 C. DIFFICILE (STOOL) Lab Routine Diarrhea, unspecified 1 Occurrences type starting 12/26/2018 until 06/24/2019 GIARDIA AND Lab Routine Diarrhea, unspecified 1 Occurrences CRYPTOSPORIDIUM type starting 12/26/2018 until 06/24/2019 US SOFT TISSUE HEAD NECK Imaging Routine Subcutaneous nodules Expected: , ULTRASOUND Expires: 12/26/2019 Health Maintenance Due Date Last Done Comments [...] Author Type Problems Progress Depression Depression No Crepet, screen (PHQ-9) MD Becky total score < 5 Note: This is an individualized treatment (depression) goal for Tiffanie Orellana: Displayed above is your goal for a depression screening (PHQ-9) score that would indicate good control of your depression. Lifestyle - Current Smoker Lifestyle Smoking Becky Renteria MD Note: Smoking Cessation Plan Discussed smoking [...] filedocumented in this encounter Visit Diagnoses Diagnosis Malaise and fatigue - Primary Other malaise and fatigue Diarrhea, unspecified type Subcutaneous nodules Localized superficial swelling, mass, or lump Hair loss Alopecia, unspecified documented in this encounter Insurance Payer Benefit Plan / Subscriber ID Effective Dates Phone Address Type Group MEDICARE MEDICARE PART A xxxxxxxxxxx 2010-Present Medicare & B MEDICAID [facility] xxxxxxxx 2016-Present Medicaid [place] MEDICAID documented as of this encounter
--- OUTSIDE RECORDS SUMMARY | 2018-12-30 09:52 | XMS REPORT | Summary of Care ---
:1980 Author Organization [facility] Address [address] [facility] [place] [address] Care Team Providers Name Role Phone Becky Poe Primary Care Provider Reason for Referral Medication Prior Authorization (Routine) Status Reason Specialty Diagnoses / Procedures Referred By Contact Referred To Contact Closed Becky Poe MD [address] [place] [address] Reason for Visit Reason Comments Hospital F/U pneumonia - not resolving - vomiting, diarrhea, body aches Medication Refill Reference #: [id number] Encounter Details Date Type Department Care Team Description 12/11/2018 Office Visit [facility] Becky Poe MD Pneumonia due to organism (Primary Dx); Medicine [address] [facility] Abdominal pain, unspecified abdominal location; [address] [place] [address] Diarrhea, [place] [address] [phone] Allergies Active Allergy Reactions Severity Noted Date Comments Varenicline Tartrate NOVELTY TWISTER TENDER Reaction 04/08/2012 zenaida Hydrocodone GI Reaction 10/04/2012 Stomach upset Serotonin Reuptake Inhibitors NOVELTY TWISTER TENDER Reaction 04/08/2012 Zenaida documented as of this encounter (statuses as of 12/11/2018) Medications Medication Sig Dispensed Refills Start End Date Status Date clonazePAM Take 1 mg by 0 Active (KLONOPIN) 1 MG mouth NEEDED. Oral Tab fluocinonide applly twice 120 g 5 Active (LIDEX) 0.05 % daily sparingly 8 Apply externally CreamIndications: Eczema, unspecified type naproxen sodium Take 2 Tabs by 120 Tab 3 Active (ANAPROX) 275 MG mouth TWO TIMES 8 Oral DAILY WITH TabIndications: MEALS. Other chronic pain Levonorgestrel Insert IU with 0 11/12/19 Active (MIRENA, 52 MG,) paracervical 7 23 20 MCG/24HR block Intrauterine IUD acetaminophen Take 2 Tabs by 100 Tab 0 Active (APAP EXTRA mouth EVERY SIX 9 STRENGTH) 500 MG HOURS NEEDED Oral Tab (abdominal pain). MDD - 4 ibuprofen (MOTRIN) Take 0.75 Tabs 90 Tab 2 Active 800 MG Oral Tab by mouth EVERY 9 EIGHT HOURS NEEDED (pain). fluticasone [place] 2 Sprays 1 Bottle 2 Active (FLONASE) 50 in nose DAILY. 9 MCG/ACT Nasal Suspension clonazePAM Take 0.5 mg by 0 Active (KLONOPIN) 0.5 MG mouth NEEDED. Oral Tab ondansetron Take 1 Tab by 30 Tab 2 Active (ZOFRAN ODT) 4 MG mouth EVERY SIX 9 Oral TABLET HOURS NEEDED DISPERSIBLE (nausea). OXYcodone-acetamin Take 1 Tab by 100 Tab 0 Active ophen (PERCOCET) mouth EVERY SIX 9 5-325 MG Oral HOURS NEEDED TabIndications: (pain). Max Abdominal pain, Daily Amount: 4 unspecified Tabs. abdominal location divalproex sodium Take 1,500 mg by 0 12/12/19 Discontinued (DEPAKOTE) 500 MG mouth EVERY 19 (Patient stopped Oral Tab EC BEDTIME. the medication) buPROPion Take 300 mg by 0 12/12/19 Discontinued (WELLBUTRIN XL) mouth EVERY 19 (Patient stopped 300 MG Oral TABLET BEDTIME. the medication) SR 24 HR buPROPion Take 100 mg by 0 12/12/19 Discontinued (WELLBUTRIN) 100 mouth DAILY. 19 (Patient stopped MG Oral Tab the medication) Cefdinir (OMNICEF) TAKE 1 CAPSULE 0 12/12/19 Discontinued 300 MG Oral Cap BY MOUTH EVERY 9 19 (Patient stopped 12 HOURS FOR 7 the medication) DAYS ondansetron Take 1 Tab by 30 Tab 2 12/12/19 Discontinued (ZOFRAN ODT) 4 MG mouth EVERY SIX 9 19 (Reorder) Oral TABLET HOURS NEEDED DISPERSIBLE (nausea). OXYcodone-acetamin Take 1 Tab by 100 Tab 0 12/12/19 Discontinued ophen (PERCOCET) mouth EVERY (Reorder) 5-325 MG Oral HOURS NEEDED TabIndications: (pain). Max Abdominal pain, Daily Amount: 4 unspecified Tabs. abdominal location OXYcodone-acetamin Take 1 Tab by 100 Tab 0 12/12/19 Discontinued ophen (PERCOCET) mouth EVERY (Reorder) 5-325 MG Oral HOURS NEEDED TabIndications: (pain). Max Abdominal pain, Daily Amount: 4 unspecified Tabs. abdominal location Hospital, Clinic, or Ordered Dose Route Frequency Start Date End Date Status Other Facility Administered Medication ibuprofen (MOTRIN) 600 mg PO TID WITH MEALS 06/05/2017 Active tablet 600 mg documented as of this encounter (statuses as of 12/11/2018) Active Problems Problem Noted Date Chronic pelvic pain in female 08/23/2018 Overview: Added automatically from request for surgery [id number] Eczema 10/04/2012 Bipolar I disorder 04/08/2012 Overview: [...] as of this encounter (statuses as of 12/11/2018) Social History Tobacco Use Types Packs/Day Years [...] Sign Reading Time Taken Comments Blood Pressure 120/90 12/11/2018 9:25 AM EST Pulse 83 12/11/2018 9:25 AM EST Temperature - - Respiratory Rate - - Oxygen Saturation 99% 12/11/2018 9:25 AM EST Inhaled Oxygen Concentration - - Weight 63.2 kg (139 lb 4.8 oz) 12/11/2018 9:25 AM EST Height 157.5 cm (5' 2") 12/11/2018 9:25 AM EST Body Mass Index 25.48 12/11/2018 9:25 AM EST documented in this encounter Patient Instructions Patient InstructionsBecky Poe MD - 12/11/2018 9:40 AM ESTCongestion - upper respiratory symptoms getting slowly better - Patient given appropriate expectation Use of decongestant encouraged- Diarrhea is concerning for Cdiff - discussed and order for stool evalutation [ documented in this encounter Progress Notes Becky Poe MD - 12/11/2018 9:40 AM EST NAME:Tiffanie Orellana [birth year] ENC Date: 12/11/2018 CC: Chief Complaint Patient presents with Hospital F/U pneumonia - not resolving - vomiting, diarrhea, body aches Medication Refill Reference #: [id number] Tiffanie Orellana is a 38-y.o. female 1 Pneumonia - seen in the ER 11/30 diagnosis with RML pneumonia and treated with augmentin- Body aches is better - Breathing Has diarrhea now - Constant - Started to vomit last pm mildl shortness of breath Fatigue - Feels like head is congested- 2. Irritable bowel syndrome - has been seen by GI and also seen by hog handler for possible SAMPLE DISPLAY PREPARER origin of abdominal pain - defer discussion today - Current Outpatient Medications Medication Sig acetaminophen (APAP [...] sparingly fluticasone (FLONASE) 50 MCG/ACT Nasal Suspension [place] 2 Sprays in nose DAILY. ibuprofen (MOTRIN) [...] Medications Medication ibuprofen (MOTRIN) tablet 600 mg Patient Active Problem List Diagnosis Date Noted Chronic pelvic pain in female 08/23/2018 Added automatically from request for surgery [id number] Eczema 10/04/2012 Bipolar I disorder (HCC) 04/08/2012 Borderline personality disabled Sprain of neck 04/08/2012 Shoulder injury 04/08/2012 Atrophy os the muscles on the right from a surgery of the neck Family history of brain aneurysm 04/08/2012 Mother and grandmother - both at age 40s Family history of diabetes mellitus 04/08/2012 Smoking 04/08/2012 BMI 31.0-31.9,adult 04/08/2012 This patient's BMI has been calculated and is above average, and BMI management plan is completed. General patient education discussion including: obesity-related excess mortality History reviewed. No pertinent family history. No cardiopulmonary symptoms No upper or lower GI complaints No urinary tract symptoms. No bruising/ bleeding. No neurological complaints . No insomnia.+ . Social History Tobacco Use Smoking status: Current Every Day Smoker Packs/day: 1.00 Years: 18.00 Pack years: 18.00 Types: Cigarettes Smokeless tobacco: Never Used Substance Use Topics Alcohol use: No Alcohol/week: 0.0 standard drinks Drug use: No OBJECTIVE: BP 120/90 | Pulse 83 | Ht 5' 2" (1.575 m) | Wt 139 lb 4.8 oz (63.2 kg) | SpO2 99% | BMI 25.48 kg/m . Heent Negative Nose - congested Sinus mild tender to palpation Lungs Clear CV rrr Abd soft, nontender, no organomegaly Ext no edema; Neuro: intellect intact ; motor including gait unremarkable A/P ICD-9-CM ICD-10-CM 1. Pneumonia due to organism 486 J18.9 2. Abdominal pain, unspecified abdominal location 789.00 R10.9 OXYcodone- acetaminophen (PERCOCET) 5-325 MG Oral Tab DISCONTINUED: OXYcodone-acetaminophen (PERCOCET) 5-325 MG Oral Tab 3. Diarrhea, unspecified type 787.91 R19.7 C. DIFFICILE (STOOL) Patient Instructions Congestion - upper respiratory symptoms getting slowly better - Patient given appropriate expectation Use of decongestant encouraged- Diarrhea is concerning for Cdiff - discussed and order for stool evalutation [ AUTHOR: Becky Poe MD 12:02 12/11/2018 documented in this encounter Plan of Treatment Name Type Priority Associated Diagnoses Order Schedule C. DIFFICILE (STOOL) Lab Routine Diarrhea, unspecified 1 Occurrences starting type 12/11/2018 until 06/09/2019 Health Maintenance Due Date Last Done Comments [...] . Keep a regular sleep schedule Lifestyle Becky Renteria MD Note: This is an individualized lifestyle [...] filedocumented in this encounter Visit Diagnoses Diagnosis Pneumonia due to organism - Primary Pneumonia due to other specified organism Abdominal pain, unspecified abdominal location Diarrhea, unspecified type documented in this encounter Insurance Payer Benefit Plan / Subscriber ID Effective Dates Phone Address Type Group MEDICARE MEDICARE PART A xxxxxxxxxxx 2010-Present Medicare & B MEDICAID [place] xxxxxxxx 2016-Present Medicaid [place] MEDICAID documented as of this encounter
--- OUTSIDE RECORDS SUMMARY | 2018-12-30 09:52 | XMS REPORT | Summary of Care ---
:1980 Author Organization [facility] Address [address] [place] [address] Care Team Providers Name Role Phone Becky Poe Primary Care Provider Reason for Visit Reason Comments Diarrhea pt states bouts of diarrhea, vomiting, and nausea. has not been able to eat or drink anything. LLQ discomfort reported Lump pt states the lumps on the back of her head have broken, crusted, and oozing Encounter Details Date Type Department Care Team Description 12/30/2018 Office Visit [facility]io, Yakelin, Diarrhea, unspecified type (Primary Dx); [facility] Nausea and vomiting, intractability of vomiting not specified, unspecified vomiting type; [address] [place] [address] [place] [address] [phone] Allergies Active Allergy Reactions Severity Noted Date Comments Varenicline Tartrate ACCOUNTING SOFTWARE SPECIALIST Reaction 04/08/2012 zenaida Hydrocodone GI Reaction 10/04/2012 Stomach upset Serotonin Reuptake Inhibitors ACCOUNTING SOFTWARE SPECIALIST Reaction 04/08/2012 Zenaida documented as of this encounter (statuses as of 12/30/2018) Medications Medication Sig Dispensed Refills Start Date [...] EVERY EIGHT HOURS NEEDED (pain). fluticasone (FLONASE) [place] 2 Sprays in 1 Bottle 2 06/20/2018 [...] as of this encounter (statuses as of 12/30/2018) Active Problems Problem Noted Date Chronic pelvic pain in female 08/23/2018 Overview: Added automatically from request for surgery [id number] Eczema 10/04/2012 Bipolar I disorder 04/08/2012 Overview: [...] as of this encounter (statuses as of 12/30/2018) Social History Tobacco Use Types Packs/Day Years [...] Sign Reading Time Taken Comments Blood Pressure 130/82 12/30/2018 8:35 AM EST Pulse 102 12/30/2018 8:35 AM EST Temperature 37.4 12/30/2018 8:35 AM EST C (99.3 F) Respiratory Rate - - Oxygen Saturation 96% 12/30/2018 8:35 AM EST Inhaled Oxygen Concentration - - Weight 62.6 kg (138 lb) 12/30/2018 8:35 AM EST Height 157.5 cm (5' 2") 12/30/2018 8:35 AM EST Body Mass Index 25.24 12/30/2018 8:35 AM EST documented in this encounter Patient Instructions Patient InstructionsDoYakelin carnes PA-C - 12/30/2018 8:40 AM EST1. BRAT diet -- bananas, rice, apple sauce, toast Discussed importance of not eating dairy Keep hydrated -- small sips of water, gingerale, can suck on ice chips Will call when stool cultures are final 2. Will discuss with DR. Poe at lunch time 3. Use medicated shampoo -- nizol, Tgel Will call when US results are final documented in this encounter Progress Notes Yakelin Ascencio PA-C - 12/30/2018 8:40 AM EST PATIENT: Tiffanie Orellana : 1980 DATE OF SERVICE: 12/30/2018 REFERRING PRACTITIONER: Self-Referred PRIMARY CARE PROVIDER: Becky Poe CHIEF COMPLAINT: Chief Complaint Patient presents with Diarrhea pt states bouts of diarrhea, vomiting, and nausea. has not been able to eat or drink anything. LLQdiscomfort reported Lump pt states the lumps on the back of her head have broken, crusted, and oozing Subjective HISTORY OF PRESENT ILLNESS: Tiffanie Orellana is a 38-y.o. female who presents with continuing non-bloody diarrhea and lumps on back of head have opened, crusting, oozing Last meal 2 nights ago -- chicken, stuffing, cauliflower, broccoli Ate yogurt yesterday, "went right threw me" also vomited Says harvey is not working Patient was seen in office 12/26/18, labs done Lab Results Component Value Date TSH 0.67 12/26/2018 Lab Results Component Value Date NA 140 12/26/2018 K 4.1 12/26/2018 CL 108 (H) 12/26/2018 CO2 22 12/26/2018 GLUCOSE 90 12/26/2018 BUN 11 12/26/2018 CREATININE 0.7 12/26/2018 CALCIUM 9.3 12/26/2018 TP 7.7 12/26/2018 ALBUMIN 4.5 12/26/2018 AST 26 12/26/2018 ALT 27 12/26/2018 ALK 93 12/26/2018 TBILI 0.3 12/26/2018 EGFR >60 12/26/2018 Lab Results Component Value Date WBC 9.61 12/26/2018 HGB 15.3 12/26/2018 HCT 46.8 (H) 12/26/2018 PLAT 267 12/26/2018 Stool cultures ordered -- brought to lab this morning US of lumps on back of head done 12/26/18 -- results not done yet "Sick of being sick" -- feeling frustrated No past medical history on file. Past Surgical History: Procedure Laterality Date BIOPSY, LYMPH NODE, DEEP SECTION NEC x 1 COLONOSCOPY N/A 08/10/2016 Procedure: COLONOSCOPY; Surgeon: Jaki Rahman MD; Location: [facility] MAIN OR EGD N/A 08/10/2016 Procedure: ENDOSCOPY UPPER GI; Surgeon: Jaki Rahman MD; Location: [facility] MAIN OR No family history on file. [...] sparingly fluticasone (FLONASE) 50 MCG/ACT Nasal Suspension [place] 2 Sprays in nose DAILY. ibuprofen (MOTRIN) [...] mg Allergies Allergen Reactions Chantix [Varenicline Tartrate] ACCOUNTING SOFTWARE SPECIALIST Reaction zenaida Hydrocodone GI Reaction Stomach upset Serotonin Reuptake Inhibitors ACCOUNTING SOFTWARE SPECIALIST Reaction Zenaida Social History Socioeconomic History Marital [...] file Gets together: Not on file Attends jain service: Not on file Active member of [...] SYSTEMS: Skin: 3 tender lumps back of scalp -- have opened, oozing, crusting Eyes: negative visual blurring Ears/Nose/Throat: negative rhinorrhea, sore throat, sinus pressure, post nasal drip Respiratory: negative cough Cardiovascular: negative chest pain Gastrointestinal: negative abdominal pain, constipation, Positive non-bloody diarrhea, nausea, vomiting Genitourinary: negative burning on urination, dysuria or vaginal discharge Musculoskeletal: positive arthritis/joint pain Neurologic: negative numbness or tingling of feet or hands Psychiatric: positive Biploar Hematologic/Lymphatic/Immunologic: negative allergies. Positive fatigue Endocrine: negative diabetes or hot flashes/sweats Objective PHYSICAL EXAMINATION: VITALS: BP 130/82 (BP Location: Right arm, Patient Position: Sitting) | Pulse 102 | Temp 99.3 F (37.4 C) | Ht 5' 2" (1.575 m) | Wt 138 lb (62.6 kg ) | SpO2 96% | BMI 25.24 kg/m Body mass index is 25.24 kg/m. General appearance - alert, moderate distress, cooperative, oriented times 3, tearful at times Skin - Skin color, texture, turgor normal. No rashes or lesions. Head - Normocephalic. Posterior scalp, left side: 2 small subcutaneous nodules, right side 1 nodule,tender, crusting Eyes - conjunctivae/corneas clear. PERRL, EOM's intact. Oropharynx - Lips, mucosa, and tongue normal. Teeth and gums normal. Oropharynx normal. Neck - Neck supple, FROM. No cervical or supraclavicular adenopathy. Thyroid normal, no enlargement Lungs - Good diaphragmatic excursion. Lungs clear. Chest symmetrical. Normal breath sounds. Heart - RRR. No murmurs, clicks or gallops. No peripheral edema. ABDOMEN: soft, tenderness with palpation LLQ. Bowel sounds normal. No masses, no organomegaly. . IMPRESSION: ICD-9-CM ICD-10-CM 1. Diarrhea, unspecified type 787.91 R19.7 GIARDIA AND CRYPTOSPORIDIUM C. DIFFICILE (STOOL) STOOL CULTURE STOOL CULTURE STOOL FOR SHIGA-LIKE TOXINS CULTURE 2. Nausea and vomiting, intractability of vomiting not specified, unspecified vomiting type 787.01 R11.2 3. Subcutaneous nodules 782.2 R22.9 Plan PLAN: 1. BRAT diet -- bananas, rice, apple sauce, toast Discussed importance of not eating dairy Keep hydrated -- small sips of water, gingerale, can suck on ice chips Will call when stool cultures are final 2. Will discuss with DR. Poe at lunch time 3. Use medicated shampoo -- nizol Tgel Will call when US results are final Author: Yakelin Ascencio PA-C 12/30/2018 08:34 documented in this encounter Plan of Treatment Name Type Priority Associated Diagnoses Date/Time GIARDIA AND CRYPTOSPORIDIUM Lab Routine Diarrhea, unspecified 12/30/2018 7 :00 AM type EST C. DIFFICILE (STOOL) Lab Routine Diarrhea, unspecified 12/30/2018 7:00 AM type EST STOOL CULTURE Lab Routine Diarrhea, unspecified 12/30/2018 7:00 AM type EST STOOL CULTURE Lab Routine Diarrhea, unspecified 12/30/2018 7:00 AM type EST STOOL FOR SHIGA-LIKE TOXINS Lab Routine Diarrhea, unspecified 12/30/2018 7 :00 AM CULTURE type EST Health Maintenance Due Date Last Done Comments [...] Patient-Stated? Author Type Problems Progress Depression Depression chung Renteria (PHQ-9) MD Becky total score < 5 Note: This is an individualized treatment (depression) goal for Tiffaniepaulo Orellana: Displayed above is your goal for [...] filedocumented in this encounter Visit Diagnoses Diagnosis Diarrhea, unspecified type - Primary Nausea and vomiting, intractability of vomiting not specified, unspecified vomiting type Subcutaneous nodules Localized superficial swelling, mass, or lump documented in this encounter Insurance Payer Benefit Plan / Subscriber ID Effective Dates Phone Address Type Group MEDICARE MEDICARE PART A xxxxxxxxxxx 2010-Present Medicare & B MEDICAID [facility] xxxxxxxx 2016-Present Medicaid [place] MEDICAID documented as of this encounter
[2018-12-30 10:22] LABS: ABS Eosinophils 0.1 10^3/ul (0-0.6); ABS Lymphocytes 1.5 10^3/ul (1.0-4.8); ABS Monocytes 0.4 10^3/ul (0-0.8); ABS Neutrophils 2.9 10^3/ul (1.5-7.7); Eosinophil % 1.6 %; Hematocrit 44 % (35-47); Hemoglobin 15.4 g/dL (12.0-16.0); Lymphocyte % 30.3 %; Mean Corpuscular HGB Conc 35 g/dL (31-36); Mean Corpuscular Hemoglobin 32 pg (27-31); Mean Corpuscular Volume 92 fL (80-97); Mean Platelet Volume 8.4 fL (7.4-10.4); Nucleated Red Blood Cells % 0.1; Platelet Count 215 10^3/uL (150-450); Red Blood Count 4.75 10^6 /uL (3.70-4.87); Red Cell Distribution Width 13 % (10-15)
[2018-12-30 10:23] LABS: Urine Appearance Clear; Urine Bilirubin Negative (Negative); Urine Blood 2+ (Negative); Urine Color Yellow; Urine Glucose Negative (Negative); Urine Ketones Negative (Negative); Urine Nitrite Negative (Negative); Urine Protein Negative (Negative); Urine Specific Gravity 1.004 (1.010-1.030); Urine Urobilinogen Negative (Negative)
[2018-12-30 10:32] LABS: Anion Gap 4 mmol/L (2-11); CO2 Carbon Dioxide 26 mmol/L (22-32); Calcium 9.1 mg/dL (8.6-10.3); Chloride 108 mmol/L (101-111); Magnesium 1.9 mg/dL (1.9-2.7); Sodium 138 mmol/L (135-145)
[2018-12-30 10:38] LABS: ALT 10 U/L (7-52); AST 12 U/L (13-39); Albumin/Globulin Ratio 1.5 (1-3); Alkaline Phosphatase 68 U/L (34-104); BUN/Creatinine Ratio 11.4 (8-20); Blood Urea Nitrogen 8 mg/dL (6-24); C Reactive Protein 48.08 mg/L (<8.01); EGFR African American 112.7 (>60); EGFR Non-African American 93.2 (>60); Globulin 2.7 g/dL (2-4); Glucose 93 mg/dL (70-100); Total Protein 6.7 g/dL (6.4-8.9)
[2018-12-30 10:39] LABS: Urine Bacteria 1+ (Absent); Urine Red Blood Cell Trace(0-2/hpf) (Absent); Urine Squamous Epithelial Cell Present (Absent); Urine White Blood Cell Trace(0-5/hpf) (Absent)
[2018-12-30 11:09] LABS: HCG Pregnancy < 0.60 mIU/mL
[2018-12-30] MEDS ORDERED: Iohexol 300* (CONTRAST) 10 ML SDV IV ONE (12:49)
[2018-12-30 13:41] VITALS: BP 128/87
== END 2018-12-30 13:39 | disposition home or self-care (01) ==
LOC: ED 09:28
DX: R10.9 Unspecified abdominal pain (principal); F17.210 Nicotine dependence, cigarettes, uncomplicated; K74.60 Unspecified cirrhosis of liver; F32.9 Major depressive disorder, single episode, unspecified; Z97.5 Presence of (intrauterine) contraceptive device
CPT/HCPCS: 36415; 74177; 80053; 81003; 81015; 83605; 83690; 83735; 84702; 85025; 86140; 87086; 99283; Q9967

== ENCOUNTER 2023-09-24 19:32 | Inpatient (IN) ==
[2023-09-24 20:55] LABS: ABS Eosinophils 0.2 10^3/uL (0.0-0.5); ABS Lymphocytes 3.5 10^3/uL (1.0-4.8); ABS Monocytes 0.6 10^3/uL (0.0-0.9); Eosinophil % 1.6 %; Hematocrit 38.8 % (35-45); Hemoglobin 13.3 g/dL (11.5-14.3); Lymphocyte % 37.4 %; Mean Corpuscular Hemoglobin 31.4 pg (27-33); Mean Corpuscular Hgb Conc 34.2 g/dL (31-36); Mean Corpuscular Volume 91.9 fL (80-97); Mean Platelet Volume 8.8 fL (7.5-11.2); Nucleated Red Blood Cells % 0.1 %/100WBC (0.0-0.8); Platelet Count 267 10^3/uL (150-450); Red Blood Count 4.23 10^6/uL (3.63-4.92); White Blood Count 9.3 10^3/uL (3.8-11.8)
[2023-09-24 21:30] LABS: ALT 17 U/L (7-52); AST 16 U/L (13-39); Acetaminophen < 15 mcg/mL; Albumin 4.2 g/dL (3.2-5.2); Albumin/Globulin Ratio 1.9 (1-3); Alcohol, S < 13 mg/dL (<13); Alkaline Phosphatase 58 U/L (35-149); Anion Gap 7 mmol/L (2-16); Blood Urea Nitrogen 15 mg/dL (6-24); CO2 Carbon Dioxide 24 mmol/L (22-32); Calcium 9.3 mg/dL (8.6-10.3); Chloride 104 mmol/L (101-111); Creatinine, Serum 0.71 mg/dL (0.51-0.95); Globulin 2.2 g/dL (2-4); Glucose 94 mg/dL (70-100); Potassium 4.1 mmol/L (3.5-5.0); Salicylate < 2.50 mg/dL (<30); Sodium 135 mmol/L (135-145); Total Bilirubin 0.3 mg/dL (0.2-1.0); Total Protein 6.4 g/dL (6.4-8.9); eGFR CKD-EPI 107.5 (>60)
[2023-09-24 21:37] LABS: HCG Pregnancy < 0.60 mIU/mL
[2023-09-24 21:46] LABS: TSH Ultra Thyroid Stim Horm 0.56 mcIU/mL (0.34-5.60)
[2023-09-25] MEDS: Vitamin THERAPEUTIC TAB PO SCH (09:32)
[2023-09-25] MEDS: Nicotine GUM 4MG FRUIT FLAVOR PO ONE ×3 (10:36→18:45)
[2023-09-25] MEDS: Nicotine GUM 4MG FRUIT FLAVOR PO PRN (18:21)
[2023-09-25] MEDS: Nicotine PATCH 7 MG/24 HR PATCH TRANSDERM SCH (18:45)
[2023-09-26] MEDS: Al Hydrox/Mg Hydrox/Simet LIQ 30 ML UDC PO PRN (03:18)
[2023-09-27] MEDS: Nicotine Lozenge mini 4 MG LOZNG.MINI MT PRN (12:43)
[2023-09-28] MEDS: Nicotine PATCH 14 MG/24 HR PATCH TRANSDERM SCH (07:53)
[2023-10-01 13:35] LABS: HDL Cholesterol 49.7 mg/dL
[2023-10-01] MEDS: risperiDONE ER SUBCUT (NF) 100 MG/0.28 ML SYRINGE SUBCUT ONE (13:46)
[2023-10-02 09:52] VITALS: BP 138/94
== END 2023-10-02 12:45 | disposition home or self-care (01) | DRG 885 ==
LOC: ED 19:32 → EDHOLD 23:11 → BSU 09-25 00:27
PROVIDERS: ADMIT Psychiatry & Neurology Psychiatry; ATTEND Student in an Organized Health Care Education/Training Program